=== PATIENT | female | born 1950 | race Caucasian/White ===

== ENCOUNTER 2021-04-26 03:05 | Inpatient (IN) | payer MEDICARE, MEDICAID ==
[~2021-04-26] VITALS: Ht 160 cm; Wt 51.0 kg
[~2021-04-26 03:05] MED LIST: ACET325T9 PO; AMLO-186 PO; ATOR10TA60 PO; BUDE0.5A NEB; BUPR300T92 PO; CYPR4TAB31 PO; IPRA3AMP29 NEB; LISI20TA18 PO; MELA10TA7 PO; MEMA10TA PO; MULT-245 PO; OXYGEN; PANT20TA2 PO; PRED-220 PO; PRED20TA PO; UMEC1DIS IH
[2021-04-26] MEDS ORDERED: ALBUTEROL SULFATE 2.5 MG/3 ML NEBU. ONE ×2 (03:09→03:19)
[2021-04-26] MEDS ORDERED: DEXAMETHASONE SOD PHOS 20 MG/5 ML VIAL. ONE (03:11)
[2021-04-26] MEDS ORDERED: cefTRIAXone IV Push 1 GM VIAL. IVP ONE (03:15)
[2021-04-26] MEDS ORDERED: DEXAMETHASONE SOD PHOS 4 MG/ML VIAL IVP ONE (03:15)
[2021-04-26] MEDS ORDERED: LIDOCAINE 1%/EPI 1:100,000 20 ML VIAL. ONE ×2 (03:23→04:40)
--- NOTE | 2021-04-26 03:28 | RAD ---
Single view chest dated 04/26/2021 3:22 AM: COMPARISON: CT dated 12/04/2020 Clinical Indication: Shortness of breath. History of Covid 19. Findings: Single upright portable exam of the chest was performed. Heart and mediastinal contours within normal limits. There is a large left-sided pneumothorax with subtotal collapse of the left lung. Right lung is clear. No significant pleural effusion. IMPRESSION: 1. Large left-sided pneumothorax with subtotal collapse of the left lung. Results discussed with ER physician at approximately 3:25 AM on the day of study. Electronically signed by: Sher Tavares MD (04/26/2021 3:25 AM) EDD
[2021-04-26] MEDS ORDERED: AZITHROMYCIN 500 MG in IV NORMAL SALINE 250ML 250 ML IV ONE (03:30)
[2021-04-26] MEDS ORDERED: ALBUTEROL SULFATE 2.5 MG/3 ML NEBU. CONT NEB ONE (03:30)
[2021-04-26 03:46] LABS: BASO # 0.1 x10^3/uL (0.0-0.2); BASO % 0 % (0-3); EOS % 0 % (0-3); HEMATOCRIT 40.7 % (36.0-47.0); HEMOGLOBIN 12.9 g/dL (12.0-15.5); LYMPH # 5.4 x10^3/uL (1.0-4.8); LYMPH % 29 % (24-48); MEAN CORPUSCULAR HEMOGLOBIN 27 pg (25-35); MEAN CORPUSCULAR HGB CONC 32 g/dL (31-37); MEAN CORPUSCULAR VOLUME 86 fL (79-100); MONO # 0.8 x10^3/uL (0.0-1.1); MONO % 5 % (0-9); NEUT # 12.4 x10^3/uL (1.8-7.7); NEUT % 66 % (31-73); PLATELET COUNT 238 x10^3/uL (140-400); RED BLOOD COUNT 4.74 x10^6/uL (3.50-5.40); RED CELL DISTRIBUTION WIDTH 18.6 % (11.5-14.5); WHITE BLOOD COUNT 18.8 x10^3/uL (4.0-11.0)
[2021-04-26 03:55] LABS: PROTHROMBIN TIME PATIENT 11.7 SEC (11.7-14.0)
[2021-04-26 03:59] LABS: CALCIUM 8.6 mg/dL (8.5-10.1); CREATININE 1.2 mg/dL (0.6-1.0); GFR 44.4; POTASSIUM 3.6 mmol/L (3.5-5.1)
[2021-04-26] MEDS ORDERED: NOREPINEPHRINE VIAL 8 MG in IV DEXTROSE 5% 250 ML IV ONE (04:00)
[2021-04-26] MEDS ORDERED: fentaNYL PF VIAL 100 MCG/2 ML VIAL IVP ONE ×3 (04:00→07:45)
[2021-04-26] MEDS ORDERED: fentaNYL PF VIAL 100 MCG/2 ML VIAL ONE (04:02)
--- NOTE | 2021-04-26 04:02 | RAD ---
Single view chest dated 04/26/2021 3:58 AM: COMPARISON: Study dated same day Clinical Indication: Chest tube placement. Findings: Single upright portable exam of the chest was performed. Heart and mediastinal contours are stable. I nterval placement of left-sided chest tube. Previously described large left pneumothorax is nearly co mpletely resolved. There is a small amount of residual pleural gas at the lateral left base. Moderate amount subcutaneous emphysema along the left chest wall, new from prior study. The right lung remain s clear. Patchy increased density at the retrocardiac left base, likely atelectasis. IMPRESSION: 1. Near complete resolution of left-sided pneumothorax after chest tube placement. 2. Patchy bibasilar airspace disease, likely atelectasis. Electronically signed by: Sher Tavares MD (04/26/2021 3:59 AM) EDD
[2021-04-26 04:05] LABS: ALBUMIN 2.6 g/dL (3.4-5.0); ALBUMIN/GLOBULIN RATIO 0.7 (1.0-1.7); TOTAL BILIRUBIN 0.3 mg/dL (0.2-1.0); TOTAL PROTEIN 6.5 g/dL (6.4-8.2)
[2021-04-26 04:09] LABS: D-DIMER 3.76 ug/mlFEU (0.00-0.50)
[2021-04-26 04:20] LABS: BASE EXCESS ABG 3 mmol/L (-3-3); HCO3 ABG 32 mmol/L (21-28); SAT O2 ABG 72 % (92-99)
[2021-04-26 04:24] LABS: FIO2 ABG 100 (bipap); PCO2 ABG 69 mmHg (35-46); PO2 ABG 43 mmHg (65-108)
[2021-04-26 04:25] LABS: % BANDS 6 % (0-9); % EOS 1 % (0-5); % LYMPHS 29 % (24-48); % MONOS 3 % (0-10); % SEGS 61 % (35-66); PLT ESTIMATE ADEQUATE (ADEQUATE)
--- NOTE | 2021-04-26 04:28 | PHYS DOC ---
Past Medical History Past Medical History: COPD Additional Past Medical Histor: 4L OXYGEN @ HOME Past Surgical History: No Surgical History Smoking Status: Former Smoker Alcohol Use: None Adult General Chief Complaint Chief Complaint: DYSPNEA/RESPIRATORY DISTRESS HPI HPI The patient is a 70-year-old female with a history of hypertension, hyperlipidemia and COPD with chronic respiratory failure on 4 L of home oxygen at all times. We are told by the nursing facility where she resides that she is COVID-positive. Patient presents for evaluation of low oxygen saturation at the facility. [facility] staff found the patient to be saturating at about 45% on her baseline 4L when they went in to check on her overnight. EMS were called. EMS placed the patient on CPAP and on CPAP her saturations were in the 60s. She was transported here. Upon arrival to the emergency department the patient is alert and follows commands but is in significant respiratory distress, unable to provide history. Placed on BiPAP at high settings with continuous albuterol running inline and dose of dexamethasone given as well. Sats improved to about 75% on room air with these interventions. Cultures drawn and antibiotic coverage initiated. Chest x-ray obtained and shows large left sided pneumothorax. Chest thoracostomy tube therefore immediately placed by me with complete reexpansion demonstrated on repeat plain films and markedly improved oxygen saturation in the mid 90s on BiPAP. Patient reports her breathing is much, much better after treatment of the pneumothorax. Blood pressure low with positive pressure ventilation; single dose of push dose epinephrine given to temporize while Levophed started peripherally. Review of Systems Review of Systems Review of systems not obtainable secondary to patient in extremis. Current Medications Current Medications Current Medications Medications (Trade) Dose Ordered Sig/Olivia Start Time Stop Time Status Last Admin Dose Admin Albuterol Sulfate (Ventolin Neb Soln) 10 mg 1X ONCE 04/26/21 03:30 04/26/21 03:31 DC 04/26/21 03:15 10 MG Azithromycin 500 mg/Sodium Chloride 250 ml @ 250 mls/hr 1X ONCE 04/26/21 03:30 04/26/21 04:29 DC 04/26/21 03:42 250 MLS/HR Ceftriaxone Sodium (Rocephin) 1 gm 1X ONCE 04/26/21 03:15 04/26/21 03:20 DC 04/26/21 03:32 1 GM Dexamethasone Sodium Phosphate (Decadron) 10 mg 1X ONCE 04/26/21 03:15 04/26/21 03:20 DC 04/26/21 03:15 10 MG Fentanyl Citrate (Fentanyl 2ml Vial) 50 mcg 1X ONCE 04/26/21 04:00 04/26/21 04:01 DC 04/26/21 04:04 50 MCG Norepinephrine Bitartrate 8 mg/ Dextrose 258 ml @ 8.649 mls/ hr 1X ONCE 04/26/21 04:00 04/26/21 04:01 DC 04/26/21 04:00 10.3 MLS/HR Allergies Allergies Allergies Coded Allergies Type Severity Reaction Last Updated Verified codeine Allergy Intermediate 12/04/20 Yes tiotropium Allergy Intermediate 12/04/20 Yes Physical Exam Physical Exam Cachectic elderly black female appearing acutely ill and in severe respiratory distress. Head is normocephalic and atraumatic. Neck is supple and nontender. Oropharynx is tacky. Lungs with diminished breath sounds bilaterally, more so on the left than the right. Tachypnea and markedly increased work of breathing. There is a normal S1 and S2 without rubs or gallops and capillary refill is a ppropriate, less than 2 seconds globally. Abdomen is soft, nontender and nondistended without pulsatile mass. Skin is warm and dry without cyanosis, clubbing or edema. Psychiatrically, the patient demonstrates appropriate mood and affect and is alert. Neurologically, patient moves all extremities equally, is alert and oriented and no lateralizing deficits are seen. Evaluation of the extremities reveals BUEs and BLEs neurovascularly intact distally with strength 5 out of 5, sensation intact to light touch in all nerve distributions, capillary refill less than 2 seconds, hands and feet warm and well-perfused. No dependent peripheral edema distally. No calf tenderness or swelling bilater ally. Choco's test is negative bilaterally. Current Patient Data Vital Signs Vital Signs Date Time Temp Pulse Resp B/P (MAP) Pulse Ox O2 Delivery O2 Flow Rate FiO2 04/26/21 04:04 23 93 Room Air 04/26/21 03:52 118 124/75 (91) 04/26/21 03:05 97.8 97.8 Lab Values Laboratory Tests Test 04/26/21 03:20 04/26/21 03:30 O2 Saturation 72 % (92-99) L Arterial Blood pH 7.28 (7.35-7.45) L Arterial Blood pCO2 at Patient Temp 69 mmHg (35-46) *H Arterial Blood pO2 at Patient Temp 43 mmHg (65-108) *L Arterial Blood HCO3 32 mmol/L (21-28) H Arterial Blood Base Excess 3 mmol/L (-3-3) FiO2 100 (bipap) White Blood Count 18.8 x10^3/uL (4.0-11.0) H Red Blood Count 4.74 x10^6/uL (3.50-5.40) Hemoglobin 12.9 g/dL (12.0-15.5) Hematocrit 40.7 % (36.0-47.0) Mean Corpuscular Volume 86 fL (79-100) Mean Corpuscular Hemoglobin 27 pg (25-35) Mean Corpuscular Hemoglobin Concent 32 g/dL (31-37) Red Cell Distribution Width 18.6 % (11.5-14.5) H Platelet Count 238 x10^3/uL (140-400) Neutrophils (%) (Auto) 66 % (31-73) Lymphocytes (%) (Auto) 29 % (24-48) Monocytes (%) (Auto) 5 % (0-9) Eosinophils (%) (Auto) 0 % (0-3) Basophils (%) (Auto) 0 % (0-3) Neutrophils # (Auto) 12.4 x10^3/uL (1.8-7.7) H Lymphocytes # (Auto) 5.4 x10^3/uL (1.0-4.8) H Monocytes # (Auto) 0.8 x10^3/uL (0.0-1.1) Eosinophils # (Auto) 0.0 x10^3/uL (0.0-0.7) Basophils # (Auto) 0.1 x10^3/uL (0.0-0.2) Segmented Neutrophils % 61 % (35-66) Band Neutrophils % 6 % (0-9) Lymphocytes % 29 % (24-48) Monocytes % 3 % (0-10) Eosinophils % 1 % (0-5) Platelet Estimate Adequate (ADEQUATE) Prothrombin Time 11.7 SEC (11.7-14.0) Prothrombin Time INR 0.9 (0.8-1.1) Activated Partial Thromboplast Time 23 SEC (24-38) L D-Dimer (Katie) 3.76 ug/mlFEU (0.00-0.50) H Sodium Level 147 mmol/L (136-145) H Potassium Level 3.6 mmol/L (3.5-5.1) Chloride Level 108 mmol/L (98-107) H Carbon Dioxide Level 33 mmol/L (21-32) H Anion Gap 6 (6-14) Blood Urea Nitrogen 19 mg/dL (7-20) Creatinine 1.2 mg/dL (0.6-1.0) H Estimated GFR (Cockcroft-Gault) 44.4 BUN/Creatinine Ratio 16 (6-20) Glucose Level 262 mg/dL (70-99) H Lactic Acid Level 1.9 mmol/L (0.4-2.0) Calcium Level 8.6 mg/dL (8.5-10.1) Total Bilirubin 0.3 mg/dL (0.2-1.0) Aspartate Amino Transferase (AST) 34 U/L (15-37) Alanine Aminotransferase (ALT) 35 U/L (14-59) Alkaline Phosphatase 126 U/L (46-116) H Troponin I High Sensitivity 240 ng/L (4-50) H CB-Mzb-Q-Type Natriuretic Peptide 376 pg/mL (0-124) H Total Protein 6.5 g/dL (6.4-8.2) Albumin 2.6 g/dL (3.4-5.0) L Albumin/Globulin Ratio 0.7 (1.0-1.7) L Laboratory Tests 04/26/21 03:30 Laboratory Tests 04/26/21 03:30 EKG EKG Sinus rhythm, rate 108, no acute ST elevation or depression, WI 116, QRS 80, QTc 486, EP interpretation. Nonischemic tracing, intervals appropriate. Baseline artifact modestly limits interpretation, particularly in anterior leads. Radiology/Procedures Radiology/Procedures Indication: critical illness; need for vasopressors Consent: The patient provided consent for this procedure. Procedure: The patient was positioned appropriately and the skin over the right IJ was prepped and draped in a sterile fashion. Local anesthesia was used. Ultrasound guidance utilized. A large bore needle was used to identify the vein. A guide wire was then inserted into the vein through the needle. A triple lumen catheter was then inserted into the vessel over the guide wire using the Ana Cristina mickey technique. All ports showed good, free flowing blood return and were flushed with saline solution. The catheter was then securely fastened to the skin with sutures and covered with a sterile dressing. A post procedure X-ray was ordered. The patient tolerated the procedure well. Complications: none. Indication: [Large left pneumothorax; acute respiratory failure] Consent: The patient provided consent for this procedure. Procedure: The patient was placed in an appropriate position. Local anesthesia over the insertion site was lidocaine w/ epi x10mg. An incision was made. Blunt dissection up and over the rib was performed until access was obtained into the pleural cavity. A 24. Micronesian chest tube was placed and connected to [PLEURIVAC]. Initial output from the tube was air. The tube was sutured in place and the site was covered with an occlusive dressing. All connections were banded. Breath sounds after the procedure were equal bilaterally. A chest x- ray was obtained to evaluate placement and demonstrated near-complete resolution of the pneumothorax. The patient tolerated the procedure very well. Complications: none. Single view chest dated 04/26/2021 3:22 AM: COMPARISON: CT dated 12/04/2020 Clinical Indication: Shortness of breath. History of Covid 19. Findings: Single upright portable exam of the chest was performed. Heart and mediastinal contours within normal limits. There is a large left-sided pneumothorax with subtotal collapse of the left lung. Right lung is clear. No significant pleural effusion. IMPRESSION: 1. Large left-sided pneumothorax with subtotal collapse of the left lung. Results discussed with ER physician at approximately 3:25 AM on the day of study. Electronically signed by: Sher Tavares MD (04/26/2021 3:25 AM) [facility] [place] DICTATED and SIGNED BY: SHER TAVARES MD DATE: 04/26/21 [id number] 0 Single view chest dated 04/26/2021 3:58 AM: COMPARISON: Study dated same day Clinical Indication: Chest tube placement. Findings: Single upright portable exam of the chest was performed. Heart and mediastinal contours are stable. Interval placement of left-sided chest tube. Previously described large left pneumothorax is nearly completely resolved. There is a small amount of residual pleural gas at the lateral left base. Moderate amount subcutaneous emphysema along the left chest wall, new from prior study. The right lung remains clear. Patchy increased density at the retrocardiac left base, likely atelectasis. IMPRESSION: 1. Near complete resolution of left-sided pneumothorax after chest tube placement. 2. Patchy bibasilar airspace disease, likely atelectasis. Electronically signed by: Sher Tavares MD (04/26/2021 3:59 AM) [facility] [place] DICTATED and SIGNED BY: SHER TAVARES MD DATE: 04/26/21 [id number] 0 Course & Med Decision Making Course & Med Decision Making Workup as above. Patient stabilized after left chest tube placement; oxygen saturations very appropriate on much lower BiPAP settings and patient states her breathing is much, much better. Repeat ABG much improved. Patient with troponin elevation likely reflective of demand ischemia; NO substernal chest pain and EKG is nonischemic. Delta troponin pending. D dimer markedly elev ated; favor this being due to critical illness / COVID infection but will obtain CTPA on the way to the ICU. Right IJ CVC placed due to critical illness and need for norepinephrine for pressure support, though pressor requirement has decreased as BiPAP settings have been titrated down and patient has been fluid resuscitated. Line OK to use on review of repeat plain films of the chest. Case d/w Dr. Pryor of pulmonary medicine who agrees with management thus far and will follow closely. Case d/w Dr. Dewey who graciously accepts the patient for ICU admission. CC time 115 minutes, independent of procedure time. Dragon Disclaimer Dragon Disclaimer This electronic medical record was generated, in whole or in part, using a voice recognition dictation system. Departure Departure Impression: Primary Impression: Acute hypoxemic respiratory failure Additional Impressions: Acute hypercapnic respiratory failure Pneumothorax, left Demand ischemia Disposition: ADMITTED INPATIENT Condition: CRITICAL Referrals: ASTRID LE MD (PCP) Problem Qualifiers MADHURI HAYDEN MD Apr 26, 2021 04:28
[2021-04-26 04:49] LABS: BASE EXCESS ABG 2 mmol/L (-3-3); HCO3 ABG 29 mmol/L (21-28); PCO2 ABG 57 mmHg (35-46); PO2 ABG 77 mmHg (65-108); SAT O2 ABG 94 % (92-99)
[2021-04-26 04:54] LABS: FIO2 ABG 75 (bipap)
[2021-04-26] MEDS ORDERED: IV NORMAL SALINE 500ML BAG 500 ML IV ONE (05:15)
[2021-04-26] MEDS ORDERED: ONDANSETRON PF 4 MG/2 ML VIAL. IVP PRN (05:30)
[2021-04-26] MEDS ORDERED: ALBUTEROL SULFATE 2.5 MG/3 ML NEBU. NEB ONE (05:30)
--- NOTE | 2021-04-26 05:40 | RAD ---
Single view chest dated 04/26/2021 5:36 AM: COMPARISON: Study dated same day Clinical Indication: Central line placement. Findings: Single upright portable exam of the chest was performed. Heart and mediastinal contours are stable. I nterval placement of right internal jugular catheter with tip projected to the level of the upper SVC . There is a left-sided chest tube in place, unchanged. Small amount of pleural gas at the left costo phrenic sulcus, unchanged. There is patchy increased density at the retrocardiac left base, unchanged . Subcutaneous emphysema along the left chest wall, unchanged. IMPRESSION: 1. Interval placement of right internal jugular catheter with no evidence of right-sided pneumothorax . 2. Left-sided chest tube with small pneumothorax at the left costophrenic sulcus, unchanged. 3. Left basilar airspace disease, likely atelectasis. Electronically signed by: Sher Tavares MD (04/26/2021 5:38 AM) [facility]
[2021-04-26 05:43] LABS: INFLUENZA A PATIENT NEGATIVE (NEGATIVE); INFLUENZA B PATIENT NEGATIVE (NEGATIVE)
[2021-04-26] MEDS ORDERED: IV DEXTROSE 5 %-0.45 % NACL 1,000 ML IV ONE (05:45)
[2021-04-26] MEDS ORDERED: IOHEXOL 350 MG/ML 100 ML VIAL. IV ONE (06:00)
[2021-04-26] MEDS ORDERED: CONTRAST GIVEN. MC PRN (06:00)
--- NOTE | 2021-04-26 06:03 | EKG ---
[facility] [address] [place] [address] Test Date: 2021-04-26 Test Time: 04:23:44 Pat Name: WARREN CARR Department: Room: ED HOLD 1 Gender: F Boat Wrapper: : 1950 Requested By: MADHURI HAYDEN Order Number: [id number] Reading MD: Burke Macdonald MD Measurements Intervals [place] Rate: 108 P: 56 DE: 116 QRS: 35 QRSD: 80 T: 31 QT: 360 QTc: 486 Interpretive Statements SINUS TACHYCARDIA NON-SPECIFIC ST/T CHANGES Electronically Signed On 04-26-2021 14:56:30 FURNITURE REPAIRER by Burke Macdonald MD
[2021-04-26] MEDS ORDERED: EPINEPHrine SYRINGE 1 MG/10 ML SYRINGE. IV ONE (07:30)
[2021-04-26] MEDS: fentaNYL PF VIAL 100 MCG/2 ML VIAL IVP PRN ×5 (07:41→23:44)
[2021-04-26] MEDS ORDERED: LIDOCAINE 1%/EPI 1:100,000 20 ML VIAL. INJ ONE ×2 (07:45)
--- NOTE | 2021-04-26 08:42 | RAD ---
PQRS Compliance Statement: One or more of the following individualized dose reduction techniques were utilized for this examinat ion: 1. Automated exposure control 2. Adjustment of the mA and/or kV according to patient size 3. Use of iterative reconstruction technique Exam performed: CT pulmonary angiogram of the chest with contrast. Date: 04/26/2021. Comparison:Single view chest from earlier today and CT angiogram chest from 12/04/2020 Indication: Acute on chronic respiratory failure, left pneumothorax, markedly elevated d-dimer Technique: Contiguous helical acquisitions are obtained through the chest during intravenous administ ration of 85 cc of Omnipaque 350. [Sagittal and coronal reformatted images and ] MIP images were o btained and reviewed Findings: Diagnostic quality: Adequate. Pulmonary emboli: None seen Right heart strain: None seen Pulmonary arteries: Normal in caliber Heart/Systemic Vasculature: Heart is normal, no pericardial effusion. Diffuse atheromatous aortic hayden cification noted. Mediastinum: Calcified mediastinal lymph nodes are identified. Lungs: Diffuse bilateral emphysematous lungs are seen. Small left pneumothorax with a left-sided ches t tube in place noted. Tip of the 2 extends into the left apex. There is atelectasis of the left lung base. There are linear opacities in the right lung base likely atelectasis. Trace right pleural effu katt Neck/Axilla/Body Wall: Normal Upper Abdomen: Grossly unremarkable. Right renal cyst Bones: Generalized osteopenia with compression fractures involving mid and lower thoracic vertebral b kory appears similar to the prior exam. Miscellaneous: There is moderate left chest wall subcutaneous emphysema. Impression: 1. The study is negative for pulmonary embolism. 2. Stable small left pneumothorax with a left-sided chest tube in place. Electronically signed by: Ary Kim MD (04/26/2021 8:39 AM) [facility]
[2021-04-26 09:36] LABS: BILIRUBIN,URINE NEGATIVE (NEG); CLARITY,URINE CLEAR; COLOR,URINE YELLOW; NITRITE,URINE NEGATIVE (NEG); PROTEIN,URINE 30 mg/dL (NEG-TRACE); UROBILINOGEN,URINE 0.2 mg/dL (0.2 mg/dL)
--- NOTE | 2021-04-26 09:42 | CONS ---
DATE OF CONSULTATION: 04/26/2021 PULMONARY CONSULTATION ATTENDING PHYSICIAN: Emmie Snell DO. REASON FOR CONSULTATION: Respiratory failure, left-sided spontaneous pneumothorax, COVID positive. HISTORY OF PRESENT ILLNESS: The patient is a 70-year-old female who has history of hypertension, hyperlipidemia and COPD with chronic hypoxic respiratory failure. She is on home oxygen at 4 liters. The patient resides at a nursing facility. She was brought into the hospital after she was found to be dyspneic and hypoxic with saturation of 45% on room air. EMS was called. She was placed on CPAP. Saturations were still in the 60s. She was brought into our Emergency Department and was placed on BiPAP. Since she was tested positive for COVID, she received dexamethasone. Her chest x-ray revealed a large left sided pneumothorax. Chest tube was placed by ER physician. I was informed about the consulted for in the morning. The patient was stable on BiPAP. I saw the patient in the Emergency Room. She is currently on BiPAP at a pressure of 18/6. She is currently on 70% FiO2, saturations are 99%. She denies any chest pain. She does complain of some chest wall pain. I reviewed the patient's arterial blood gases. It shows a pH of 7.28, pCO2 of 69 and a pO2 of 43 on 100% BiPAP. The latest ABGs at 450 in the morning showed a pH of 7.33, pCO2 of 57, pO2 of 77 and a bicarb of 29. Chest x-rays were reviewed including a CT chest. There is no evidence of pulmonary embolism. The initial chest x-ray showed a large left sided pneumothorax. Post-chest tube placement. There is significant reexpansion. CT angiogram shows no evidence of pulmonary embolism. There is a small left pneumothorax. There is left lower lobe atelectasis. There is some chest wall emphysema. There is still some residual pneumothorax. Consultation requested for further evaluation and management. PAST MEDICAL HISTORY: History of COPD with chronic hypoxic respiratory failure, hypertension, hyperlipidemia. PAST SURGICAL HISTORY: No recent surgeries. ALLERGIES: CODEINE AND TIOTROPIUM. MEDICATIONS: Reviewed as listed in the MRAD. REVIEW OF SYSTEMS: Limited, but pertinent positives discussed in my history of present illness. She denies any chest pain. She has some mild shortness of breath. No nausea, vomiting, no headache, no diarrhea. No leg edema. SOCIAL HISTORY: Has history of tobaccoism. She no longer smokes cigarettes. FAMILY HISTORY: Noncontributory to lungs. PHYSICAL EXAMINATION: VITAL SIGNS: Reviewed. Blood pressure 140 systolic. Pulse ox 99%. She is on BiPAP. NECK: Supple. LUNGS: With slightly diminished breath sounds, left lung. CARDIOVASCULAR: With a regular rate. ABDOMEN: Soft. EXTREMITIES: With no pitting edema. LABORATORY DATA: Reviewed. She is tested COVID positive. Her BUN 19, creatinine 1.2. Albumin 2.6. White cell count 18.8. IMPRESSION: 1. Acute on chronic hypoxic and hypercapnic respiratory failure secondary to multifactorial etiologies including large left sided pneumothorax, underlying chronic obstructive pulmonary disease with exacerbation and COVID-[address] 2[address] chest with a large pneumothorax on the left side. No evidence of pulmonary embolism. She is status post chest tube placement. CT angiogram shows some residual pneumothorax and a left lower lobe atelectasis. There is evidence of emphysema. 3. History of oxygen dependent chronic obstructive pulmonary disease. 4. Abnormal D-dimer, which is a nonspecific finding. No evidence of pulmonary embolism. 5. Severe protein-calorie malnutrition. 6. Mild azotemia. 7. Leukocytosis. RECOMMENDATIONS: 1. Discussed with ER physician and RN in the ER. We will continue present BiPAP. Wean FiO2. Saturations 99%. Follow ABGs and may wean off the BiPAP if ABGs improved. 2. Follow daily chest x-rays. 3. Pneumothorax could be caused by severe emphysema and blebs. COVID would be another contributing factor to Pneumothorax. 4. Continue daily x-ray and chest tube to suction. 5. P.r.n., pain medication. 6. Dexamethasone. 7. Remdesivir. 8. DVT prophylaxis. 9. Empiric antibiotics. 10. Discussed with RN in the ER. Discussed with ER physician. Chart reviewed, imaging studies reviewed. Total critical care time 40 minutes. ALTAGRACIA WHITE: Slade TID: [id number]
[2021-04-26 09:51] LABS: BACTERIA,URINE MODERATE /HPF (0-FEW)
[2021-04-26] MEDS ORDERED: REMDESIVIR LOAD in IV NORMAL SALINE 250ML TV IV ONE (10:00)
--- NOTE | 2021-04-26 11:02 | PDOC ---
Provider Note Date of Service: DATE: 04/26/21 TIME: 11:00 Provider Note [id number] Justifications for Admission Other Justification JEREMIAH VILA MD Apr 26, 2021 11:02
[2021-04-26 11:18] LABS: BASE EXCESS ABG 4 mmol/L (-3-3); HCO3 ABG 30 mmol/L (21-28); PCO2 ABG 52 mmHg (35-46); PO2 ABG 72 mmHg (65-108); SAT O2 ABG 94 % (92-99)
[2021-04-26] MEDS: MEMANTINE 5 MG TABLET. PO SCH (11:31)
[2021-04-26] MEDS: buPROPion XL 150 MG TAB.ER.24H. PO SCH (11:39)
[2021-04-26] MEDS: LISINOPRIL 20 MG TABLET PO SCH (11:40)
--- NOTE | 2021-04-26 11:55 | HP ---
DATE OF SERVICE: 04/26/2021 ADMIT DATE: 04/26/2021 CHIEF COMPLAINT: Shortness of breath. HISTORY OF PRESENT ILLNESS: A 70-year-old white female with oxygen-dependent COPD, who currently resides in a nursing facility and recently tested positive for COVID. Vaccine status is unknown. She developed progressive hypoxia and dyspnea in the ER, was found to have a large left pneumothorax and ER doctor placed a chest tube and she is much improved at this point. Laboratory studies are unremarkable at this point as well. PAST MEDICAL HISTORY: ALLERGIES LISTED TO CODEINE. Meds are not available at this time. SOCIAL HISTORY: Quit smoking some period of time ago. Family status is unknown. FAMILY HISTORY: Unremarkable. REVIEW OF SYSTEMS: Unremarkable. OBJECTIVE: ENT: All within normal limits. NECK: No masses, thyroid enlargement, or nodes. LUNGS: Decreased breath sounds in all lung bhatt. No wheezing is noted. No tachypnea. CARDIOVASCULAR: Regular rate. No tachycardia or murmur. ABDOMEN: Soft, benign and nontender. EXTREMITIES: Reduced pedal and radial pulses, 2+ clubbing, consistent with COPD. NEUROLOGIC AND PHYSIOLOGIC: Nonfocal. ASSESSMENT: COVID positive patient with chronic obstructive pulmonary disease with a large left pneumothorax, status post chest tube placement. Thought chronic obstructive pulmonary disease, COVID, and coughing could account for this. PLAN: Continue supportive care. Follow up with Dr. Kendall Dewey. STEF/WM/CEE WHITE: STEF/amaya TID: [id number]
[2021-04-26] MEDS: PANTOPRAZOLE 40 MG TABLET.DR. PO SCH (11:56)
[2021-04-26] MEDS: BUDESONIDE 0.5 MG/2 ML NEBU. NEB SCH (13:13)
[2021-04-26] MEDS: HEPARIN for SUB-Q USE 5,000 UNIT/ML VIAL. SQ SCH ×2 (13:56→19:55)
--- NOTE | 2021-04-26 15:00 | PDOC2 ---
CARDIOLOGY CONSULT NOTE DATE OF SERVICE: DATE: 04/26/21 TIME: 14:57 CHIEF COMPLAINT: Shortness of breath HPI: 70-year-old woman presents to the hospital in the setting of shortness of breath and recent diagnosis of coronavirus pneumonia. She is found to have a large left pneumothorax and a chest tube was appropriately placed. In this setting a troponin was also obtained and this was noted to be minimally elevated. The patient does not have any significant chest pain. PMHX: COPD SOCHX: No alcohol, tobacco or illicit drug use. She resides in detention. FAMHX: Noncontributory CURRENT MEDS: Current Medications Medications (Trade) Dose Ordered Sig/Olivia Route PRN Reason Start Time Stop Time Status Last Admin Dose Admin Dexamethasone Sodium Phosphate (Decadron) 10 mg 1X ONCE IVP 04/26/21 03:15 04/26/21 03:20 DC 04/26/21 03:15 Ceftriaxone Sodium (Rocephin) 1 gm 1X ONCE IVP 04/26/21 03:15 04/26/21 03:20 DC 04/26/21 03:32 Azithromycin 500 mg/Sodium Chloride 250 ml @ 250 mls/hr 1X ONCE IV 04/26/21 03:30 04/26/21 04:29 DC 04/26/21 03:42 Albuterol Sulfate (Ventolin Neb Soln) 10 mg 1X ONCE CONT NEB 04/26/21 03:30 04/26/21 03:31 DC 04/26/21 03:15 Norepinephrine Bitartrate 8 mg/ Dextrose 258 ml @ 8.649 mls/ hr 1X ONCE IV 04/26/21 04:00 04/26/21 04:01 DC 04/26/21 04:00 Fentanyl Citrate (Fentanyl 2ml Vial) 50 mcg 1X ONCE IVP 04/26/21 04:00 04/26/21 04:01 DC 04/26/21 04:04 Fentanyl Citrate (Fentanyl 2ml Vial) 50 mcg 1X ONCE IVP 04/26/21 04:15 04/26/21 04:17 DC 04/26/21 04:45 Sodium Chloride 500 ml @ 500 mls/hr 1X ONCE IV 04/26/21 05:15 04/26/21 06:14 DC 04/26/21 03:42 Fentanyl Citrate (Fentanyl 2ml Vial) 50 mcg PRN Q2HRS PRN IVP PAIN 04/26/21 05:30 04/27/21 05:29 04/26/21 11:31 Dextrose/Sodium Chloride 1,000 ml @ 100 mls/hr 1X ONCE IV 04/26/21 05:45 04/26/21 15:44 04/26/21 09:15 Iohexol (Omnipaque 350 Mg/ml) 80 ml 1X ONCE IV 04/26/21 06:00 04/26/21 06:01 DC 04/26/21 08:20 Epinephrine HCl (EPINEPHrine SYRINGE) 0.2 mg 1X ONCE IV 04/26/21 07:30 04/26/21 07:33 DC 04/26/21 03:45 Fentanyl Citrate (Fentanyl 2ml Vial) 50 mcg 1X ONCE IVP 04/26/21 07:45 04/26/21 07:46 DC 04/26/21 05:25 Lidocaine/ Epinephrine (LIDOCAINE 1%-EPI 1:100,000 Multi-Dose) 20 ml 1X ONCE INJ 04/26/21 07:45 04/26/21 07:46 DC 04/26/21 04:55 Lidocaine/ Epinephrine (LIDOCAINE 1%-EPI 1:100,000 Multi-Dose) 20 ml 1X ONCE INJ 04/26/21 07:45 04/26/21 07:46 DC 04/26/21 03:27 Heparin Sodium (Porcine) (Heparin Sodium) 5,000 unit Q8HRS SQ 04/26/21 14:00 04/26/21 13:56 Remdesivir 200 mg/ Sodium Chloride 210 ml @ 210 mls/hr 1X ONCE IV 04/26/21 10:00 04/26/21 10:59 DC 04/26/21 10:17 Memantine (Namenda) 5 mg DAILY PO 04/26/21 12:00 04/26/21 11:31 Bupropion HCl (Wellbutrin Xl) 300 mg DAILY PO 04/26/21 12:00 04/26/21 11:39 Pantoprazole Sodium (Protonix) 40 mg DAILYAC PO 04/26/21 12:00 04/26/21 11:56 ALLERGIES: Allergies Coded Allergies Type Severity Reaction Last Updated Verified codeine Allergy Intermediate 12/04/20 Yes tiotropium Allergy Intermediate 12/04/20 Yes ROS: Negative for 10 out of 14 systems reviewed unless otherwise mentioned above in HPI PHYSICAL EXAM: Vital Signs/I&O: Vital Signs Date Time Temp Pulse Resp B/P (MAP) Pulse Ox O2 Delivery O2 Flow Rate FiO2 04/26/21 14:50 95 BiPAP/CPAP 04/26/21 14:34 97 22 138/73 (94) 04/26/21 03:05 97.8 97.8 I & O 04/25/21 04/25/21 04/26/21 15:00 23:00 07:00 Intake Total 1250 ml Balance 1250 ml Physical Exam: Limited visual examination. The patient is not in any acute distress DIAGNOSTIC TESTING: Chest x-ray, EKG, cardiac enzymes reviewed Lab Laboratory Tests Test 04/26/21 03:20 04/26/21 03:30 04/26/21 04:50 04/26/21 05:24 O2 Saturation 72 % (92-99) L 94 % (92-99) Arterial Blood pH 7.28 (7.35-7.45) L 7.33 (7.35-7.45) L Arterial Blood pCO2 at Patient Temp 69 mmHg (35-46) *H 57 mmHg (35-46) H Arterial Blood pO2 at Patient Temp 43 mmHg (65-108) *L 77 mmHg (65-108) Arterial Blood HCO3 32 mmol/L (21-28) H 29 mmol/L (21-28) H Arterial Blood Base Excess 3 mmol/L (-3-3) 2 mmol/L (-3-3) FiO2 100 (bipap) 75 (bipap) White Blood Count 18.8 x10^3/uL (4.0-11.0) H Red Blood Count 4.74 x10^6/uL (3.50-5.40) Hemoglobin 12.9 g/dL (12.0-15.5) Hematocrit 40.7 % (36.0-47.0) Mean Corpuscular Volume 86 fL (79-100) Mean Corpuscular Hemoglobin 27 pg (25-35) Mean Corpuscular Hemoglobin Concent 32 g/dL (31-37) Red Cell Distribution Width 18.6 % (11.5-14.5) H Platelet Count 238 x10^3/uL (140-400) Neutrophils (%) (Auto) 66 % (31-73) Lymphocytes (%) (Auto) 29 % (24-48) Monocytes (%) (Auto) 5 % (0-9) Eosinophils (%) (Auto) 0 % (0-3) Basophils (%) (Auto) 0 % (0-3) Neutrophils # (Auto) 12.4 x10^3/uL (1.8-7.7) H Lymphocytes # (Auto) 5.4 x10^3/uL (1.0-4.8) H Monocytes # (Auto) 0.8 x10^3/uL (0.0-1.1) Eosinophils # (Auto) 0.0 x10^3/uL (0.0-0.7) Basophils # (Auto) 0.1 x10^3/uL (0.0-0.2) Segmented Neutrophils % 61 % (35-66) Band Neutrophils % 6 % (0-9) Lymphocytes % 29 % (24-48) Monocytes % 3 % (0-10) Eosinophils % 1 % (0-5) Platelet Estimate Adequate (ADEQUATE) Prothrombin Time 11.7 SEC (11.7-14.0) Prothromb Time International Ratio 0.9 (0.8-1.1) Activated Partial Thromboplast Time 23 SEC (24-38) L D-Dimer (Katie) 3.76 ug/mlFEU (0.00-0.50) H Sodium Level 147 mmol/L (136-145) H Potassium Level 3.6 mmol/L (3.5-5.1) Chloride Level 108 mmol/L (98-107) H Carbon Dioxide Level 33 mmol/L (21-32) H Anion Gap 6 (6-14) Blood Urea Nitrogen 19 mg/dL (7-20) Creatinine 1.2 mg/dL (0.6-1.0) H Estimated GFR (Cockcroft-Gault) 44.4 BUN/Creatinine Ratio 16 (6-20) Glucose Level 262 mg/dL (70-99) H Lactic Acid Level 1.9 mmol/L (0.4-2.0) Calcium Level 8.6 mg/dL (8.5-10.1) Total Bilirubin 0.3 mg/dL (0.2-1.0) Aspartate Amino Transf (AST/SGOT) 34 U/L (15-37) Alkaline Phosphatase 126 U/L (46-116) H Troponin I High Sensitivity 240 ng/L (4-50) H Total Protein 6.5 g/dL (6.4-8.2) Albumin 2.6 g/dL (3.4-5.0) L Albumin/Globulin Ratio 0.7 (1.0-1.7) L Influenza Type A Antigen Negative (NEGATIVE) Influenza Type B Antigen Negative (NEGATIVE) SARS-CoV-2 Antigen (Rapid) Positive (NEGATIVE) *A Test 04/26/21 05:30 04/26/21 09:25 04/26/21 11:18 Troponin I High Sensitivity 239 ng/L (4-50) H Urine Collection Type Unknown Urine Color Yellow Urine Clarity Clear Urine pH 7.0 (<5.0-8.0) Urine Specific [place] 1.025 (1.000-1.030) Urine Protein 30 mg/dL (NEG-TRACE) Urine Glucose (UA) 500 mg/dL (NEG) Urine Ketones (Stick) Trace mg/dL (NEG) Urine Blood Small (NEG) Urine Nitrite Negative (NEG) Urine Bilirubin Negative (NEG) Urine Urobilinogen Dipstick 0.2 mg/dL (0.2 mg/dL) Urine Leukocyte Esterase Moderate (NEG) Urine RBC 6-10 /HPF (0-2) Urine WBC 11-20 /HPF (0-4) Urine Squamous Epithelial Cells Mod /LPF Urine Renal Epithelial Cells Few /LPF Urine Bacteria Moderate /HPF (0-FEW) Urine Mucus Slight /LPF O2 Saturation 94 % (92-99) Arterial Blood pH 7.38 (7.35-7.45) Arterial Blood pCO2 at Patient Temp 52 mmHg (35-46) H Arterial Blood pO2 at Patient Temp 72 mmHg (65-108) Arterial Blood HCO3 30 mmol/L (21-28) H Arterial Blood Base Excess 4 mmol/L (-3-3) H FiO2 60% bipap Laboratory Tests 04/26/21 03:30 ASSESSMENT: 1. Elevated troponin likely secondary to type II non-STEMI. 2. Coronavirus pneumonia with pneumothorax 3. COPD PLAN: 1. No further cardiovascular testing necessary at this time. 2. Continue treatment of her primary pulmonary issues. Troponin elevation is likely secondary to stress related issues and no further testing or anticoagulation is necessary. Consider outpatient evaluation if she has persistent symptoms. JACKY VELÁZQUEZ MD Apr 26, 2021 14:59
[2021-04-26 19:35] VITALS: BP 137/81
[2021-04-26] MEDS: ATORVASTATIN CALCIUM 10 MG TABLET. PO SCH (19:53)
[2021-04-26 23:30] VITALS: BP 140/75
[2021-04-26] MEDS: IPRATROPIUM/ALBUTEROL 20/100mcg/INH INHALER. INH SCH (23:43)
[2021-04-27 04:32] LABS: BASO % 0 % (0-3); EOS % 0 % (0-3); HEMATOCRIT 37.9 % (36.0-47.0); HEMOGLOBIN 12.1 g/dL (12.0-15.5); LYMPH # 1.7 x10^3/uL (1.0-4.8); LYMPH % 15 % (24-48); MEAN CORPUSCULAR HEMOGLOBIN 27 pg (25-35); MEAN CORPUSCULAR HGB CONC 32 g/dL (31-37); MEAN CORPUSCULAR VOLUME 85 fL (79-100); MONO % 9 % (0-9); NEUT # 8.3 x10^3/uL (1.8-7.7); NEUT % 76 % (31-73); PLATELET COUNT 215 x10^3/uL (140-400); RED BLOOD COUNT 4.46 x10^6/uL (3.50-5.40); RED CELL DISTRIBUTION WIDTH 18.2 % (11.5-14.5)
[2021-04-27 04:39] VITALS: BP 150/81
[2021-04-27 04:57] LABS: ALBUMIN 2.2 g/dL (3.4-5.0); ALBUMIN/GLOBULIN RATIO 0.6 (1.0-1.7); CALCIUM 7.8 mg/dL (8.5-10.1); CREATININE 1.1 mg/dL (0.6-1.0); GFR 49.1; POTASSIUM 3.9 mmol/L (3.5-5.1); TOTAL BILIRUBIN 0.3 mg/dL (0.2-1.0); TOTAL PROTEIN 5.8 g/dL (6.4-8.2)
[2021-04-27] MEDS: IPRATROPIUM/ALBUTEROL 20/100mcg/INH INHALER. INH SCH ×3 (06:32→18:00)
[2021-04-27] MEDS: HEPARIN for SUB-Q USE 5,000 UNIT/ML VIAL. SQ SCH ×3 (06:32→21:00)
[2021-04-27 07:00] VITALS: BP 163/87
[2021-04-27] MEDS: BUDESONIDE 0.5 MG/2 ML NEBU. NEB SCH ×2 (08:00→20:00)
[2021-04-27] MEDS: MEMANTINE 5 MG TABLET. PO SCH (09:23)
[2021-04-27] MEDS: buPROPion XL 150 MG TAB.ER.24H. PO SCH (09:23)
[2021-04-27] MEDS: PANTOPRAZOLE 40 MG TABLET.DR. PO SCH (09:23)
[2021-04-27] MEDS: LISINOPRIL 20 MG TABLET PO SCH (09:24)
[2021-04-27] MEDS: DEXAMETHASONE SOD PHOS 4 MG/ML VIAL IVP SCH (09:39)
--- NOTE | 2021-04-27 09:39 | PDOC ---
PULMONARY PROGRESS NOTES DATE: 04/27/21 TIME: 09:37 Subjective Patient feels better. Off the BiPAP and down to 10 L oxygen via nasal cannula. Left chest tube in place. Minimal air leak seen. Vitals Vital Signs Date Time Temp Pulse Resp B/P (MAP) Pulse Ox O2 Delivery O2 Flow Rate FiO2 04/27/21 08:52 94 Nasal Cannula 10.0 04/27/21 04:39 97.4 105 20 150/81 (104) 97.4 General: Alert, No acute distress Lungs: Other (Decreased breath sounds bilaterally) Cardiovascular: S1 Abdomen: Soft Extremities: No Edema Skin: Warm Labs Laboratory Tests Test 04/26/21 03:20 04/26/21 03:30 04/26/21 04:50 04/26/21 05:24 O2 Saturation 72 % (92-99) 94 % (92-99) Arterial Blood pH 7.28 (7.35-7.45) 7.33 (7.35-7.45) Arterial Blood pCO2 at Patient Temp 69 mmHg (35-46) 57 mmHg (35-46) Arterial Blood pO2 at Patient Temp 43 mmHg (65-108) 77 mmHg (65-108) Arterial Blood HCO3 32 mmol/L (21-28) 29 mmol/L (21-28) Arterial Blood Base Excess 3 mmol/L (-3-3) 2 mmol/L (-3-3) FiO2 100 (bipap) 75 (bipap) White Blood Count 18.8 x10^3/uL (4.0-11.0) Red Blood Count 4.74 x10^6/uL (3.50-5.40) Hemoglobin 12.9 g/dL (12.0-15.5) Hematocrit 40.7 % (36.0-47.0) Mean Corpuscular Volume 86 fL (79-100) Mean Corpuscular Hemoglobin 27 pg (25-35) Mean Corpuscular Hemoglobin Concent 32 g/dL (31-37) Red Cell Distribution Width 18.6 % (11.5-14.5) Platelet Count 238 x10^3/uL (140-400) Neutrophils (%) (Auto) 66 % (31-73) Lymphocytes (%) (Auto) 29 % (24-48) Monocytes (%) (Auto) 5 % (0-9) Eosinophils (%) (Auto) 0 % (0-3) Basophils (%) (Auto) 0 % (0-3) Neutrophils # (Auto) 12.4 x10^3/uL (1.8-7.7) Lymphocytes # (Auto) 5.4 x10^3/uL (1.0-4.8) Monocytes # (Auto) 0.8 x10^3/uL (0.0-1.1) Eosinophils # (Auto) 0.0 x10^3/uL (0.0-0.7) Basophils # (Auto) 0.1 x10^3/uL (0.0-0.2) Segmented Neutrophils % 61 % (35-66) Band Neutrophils % 6 % (0-9) Lymphocytes % 29 % (24-48) Monocytes % 3 % (0-10) Eosinophils % 1 % (0-5) Platelet Estimate Adequate (ADEQUATE) Prothrombin Time 11.7 SEC (11.7-14.0) Prothromb Time International Ratio 0.9 (0.8-1.1) Activated Partial Thromboplast Time 23 SEC (24-38) D-Dimer (Katie) 3.76 ug/mlFEU (0.00-0.50) Sodium Level 147 mmol/L (136-145) Potassium Level 3.6 mmol/L (3.5-5.1) Chloride Level 108 mmol/L (98-107) Carbon Dioxide Level 33 mmol/L (21-32) Anion Gap 6 (6-14) Blood Urea Nitrogen 19 mg/dL (7-20) Creatinine 1.2 mg/dL (0.6-1.0) Estimated GFR (Cockcroft-Gault) 44.4 BUN/Creatinine Ratio 16 (6-20) Glucose Level 262 mg/dL (70-99) Lactic Acid Level 1.9 mmol/L (0.4-2.0) Calcium Level 8.6 mg/dL (8.5-10.1) Total Bilirubin 0.3 mg/dL (0.2-1.0) Aspartate Amino Transf (AST/SGOT) 34 U/L (15-37) Alanine Aminotransferase (ALT/SGPT) 35 U/L (14-59) Alkaline Phosphatase 126 U/L (46-116) Troponin I High Sensitivity 240 ng/L (4-50) SG-[id number]-[id number]-Type Natriuretic Peptide 376 pg/mL (0-124) Total Protein 6.5 g/dL (6.4-8.2) Albumin 2.6 g/dL (3.4-5.0) Albumin/Globulin Ratio 0.7 (1.0-1.7) Influenza Type A Antigen Negative (NEGATIVE) Influenza Type B Antigen Negative (NEGATIVE) SARS-CoV-2 Antigen (Rapid) Positive (NEGATIVE) Test 04/26/21 05:30 04/26/21 09:25 04/26/21 11:18 04/27/21 04:15 Troponin I High Sensitivity 239 ng/L (4-50) Urine Collection Type Unknown Urine Color Yellow Urine Clarity Clear Urine pH 7.0 (<5.0-8.0) Urine Specific [place] 1.025 (1.000-1.030) Urine Protein 30 mg/dL (NEG-TRACE) Urine Glucose (UA) 500 mg/dL (NEG) Urine Ketones (Stick) Trace mg/dL (NEG) Urine Blood Small (NEG) Urine Nitrite Negative (NEG) Urine Bilirubin Negative (NEG) Urine Urobilinogen Dipstick 0.2 mg/dL (0.2 mg/dL) Urine Leukocyte Esterase Moderate (NEG) Urine RBC 6-10 /HPF (0-2) Urine WBC 11-20 /HPF (0-4) Urine Squamous Epithelial Cells Mod /LPF Urine Renal Epithelial Cells Few /LPF Urine Bacteria Moderate /HPF (0-FEW) Urine Mucus Slight /LPF O2 Saturation 94 % (92-99) Arterial Blood pH 7.38 (7.35-7.45) Arterial Blood pCO2 at Patient Temp 52 mmHg (35-46) Arterial Blood pO2 at Patient Temp 72 mmHg (65-108) Arterial Blood HCO3 30 mmol/L (21-28) Arterial Blood Base Excess 4 mmol/L (-3-3) FiO2 60% bipap White Blood Count 11.0 x10^3/uL (4.0-11.0) Red Blood Count 4.46 x10^6/uL (3.50-5.40) Hemoglobin 12.1 g/dL (12.0-15.5) Hematocrit 37.9 % (36.0-47.0) Mean Corpuscular Volume 85 fL (79-100) Mean Corpuscular Hemoglobin 27 pg (25-35) Mean Corpuscular Hemoglobin Concent 32 g/dL (31-37) Red Cell Distribution Width 18.2 % (11.5-14.5) Platelet Count 215 x10^3/uL (140-400) Neutrophils (%) (Auto) 76 % (31-73) Lymphocytes (%) (Auto) 15 % (24-48) Monocytes (%) (Auto) 9 % (0-9) Eosinophils (%) (Auto) 0 % (0-3) Basophils (%) (Auto) 0 % (0-3) Neutrophils # (Auto) 8.3 x10^3/uL (1.8-7.7) Lymphocytes # (Auto) 1.7 x10^3/uL (1.0-4.8) Monocytes # (Auto) 1.0 x10^3/uL (0.0-1.1) Eosinophils # (Auto) 0.0 x10^3/uL (0.0-0.7) Basophils # (Auto) 0.0 x10^3/uL (0.0-0.2) Sodium Level 148 mmol/L (136-145) Potassium Level 3.9 mmol/L (3.5-5.1) Chloride Level 108 mmol/L (98-107) Carbon Dioxide Level 30 mmol/L (21-32) Anion Gap 10 (6-14) Blood Urea Nitrogen 27 mg/dL (7-20) Creatinine 1.1 mg/dL (0.6-1.0) Estimated GFR (Cockcroft-Gault) 49.1 BUN/Creatinine Ratio 25 (6-20) Glucose Level 147 mg/dL (70-99) Calcium Level 7.8 mg/dL (8.5-10.1) Total Bilirubin 0.3 mg/dL (0.2-1.0) Aspartate Amino Transf (AST/SGOT) 44 U/L (15-37) Alanine Aminotransferase (ALT/SGPT) 32 U/L (14-59) Alkaline Phosphatase 94 U/L (46-116) Total Protein 5.8 g/dL (6.4-8.2) Albumin 2.2 g/dL (3.4-5.0) Albumin/Globulin Ratio 0.6 (1.0-1.7) Laboratory Tests Test 04/26/21 11:18 04/27/21 04:15 O2 Saturation 94 % (92-99) Arterial Blood pH 7.38 (7.35-7.45) Arterial Blood pCO2 at Patient Temp 52 mmHg (35-46) Arterial Blood pO2 at Patient Temp 72 mmHg (65-108) Arterial Blood HCO3 30 mmol/L (21-28) Arterial Blood Base Excess 4 mmol/L (-3-3) FiO2 60% bipap White Blood Count 11.0 x10^3/uL (4.0-11.0) Red Blood Count 4.46 x10^6/uL (3.50-5.40) Hemoglobin 12.1 g/dL (12.0-15.5) Hematocrit 37.9 % (36.0-47.0) Mean Corpuscular Volume 85 fL (79-100) Mean Corpuscular Hemoglobin 27 pg (25-35) Mean Corpuscular Hemoglobin Concent 32 g/dL (31-37) Red Cell Distribution Width 18.2 % (11.5-14.5) Platelet Count 215 x10^3/uL (140-400) Neutrophils (%) (Auto) 76 % (31-73) Lymphocytes (%) (Auto) 15 % (24-48) Monocytes (%) (Auto) 9 % (0-9) Eosinophils (%) (Auto) 0 % (0-3) Basophils (%) (Auto) 0 % (0-3) Neutrophils # (Auto) 8.3 x10^3/uL (1.8-7.7) Lymphocytes # (Auto) 1.7 x10^3/uL (1.0-4.8) Monocytes # (Auto) 1.0 x10^3/uL (0.0-1.1) Eosinophils # (Auto) 0.0 x10^3/uL (0.0-0.7) Basophils # (Auto) 0.0 x10^3/uL (0.0-0.2) Sodium Level 148 mmol/L (136-145) Potassium Level 3.9 mmol/L (3.5-5.1) Chloride Level 108 mmol/L (98-107) Carbon Dioxide Level 30 mmol/L (21-32) Anion Gap 10 (6-14) Blood Urea Nitrogen 27 mg/dL (7-20) Creatinine 1.1 mg/dL (0.6-1.0) Estimated GFR (Cockcroft-Gault) 49.1 BUN/Creatinine Ratio 25 (6-20) Glucose Level 147 mg/dL (70-99) Calcium Level 7.8 mg/dL (8.5-10.1) Total Bilirubin 0.3 mg/dL (0.2-1.0) Aspartate Amino Transf (AST/SGOT) 44 U/L (15-37) Alanine Aminotransferase (ALT/SGPT) 32 U/L (14-59) Alkaline Phosphatase 94 U/L (46-116) Total Protein 5.8 g/dL (6.4-8.2) Albumin 2.2 g/dL (3.4-5.0) Albumin/Globulin Ratio 0.6 (1.0-1.7) Medications Active Scripts Medications Dose Route/Sig Max Daily Dose Days Date Category Budesonide 0.5 Mg/2 Ml Ampul.neb 0.5 Mg NEB RTBID 30 12/05/20 Rx Atorvastatin Calcium 10 Mg Tablet 10 Mg PO QHS 30 12/05/20 Rx Tylenol (Acetaminophen) 325 Mg Tablet 1-2 Tab PO PRN Q4-6HRS PRN 12/03/20 Reported Multi Vitamin Daily (Multivitamin) 1 Each Tablet 1 Tab PO DAILY 30 12/03/20 Reported Anoro Ellipta 62.5-25 Mcg Inh (Umeclidinium Brm/Vilanterol Tr) 1 Each Disk.w.dev 1 Each IH DAILY 12/03/20 Reported Namenda (Memantine Hcl) 10 Mg Tablet 5 Mg PO DAILY 12/03/20 Reported Prednisone (Prednisone) 10 Mg Tablet 4 Tab PO DAILY 5 12/03/20 Reported [Oxygen] 4 L DAILY 12/03/20 Reported Duoneb 0.5-3(2.5) Mg/3 Ml (Albuterol/Ipratropium) 3 Ml Ampul.neb 3 Ml NEB QID 12/03/20 Reported Melatonin 10 Mg Tab.rapdis 1 Tab PO QHS 30 12/03/20 Reported Cyproheptadine Hcl 4 Mg Tablet 4 Mg PO DAILY 12/03/20 Reported Bupropion Xl (Bupropion Hcl) 300 Mg Tab.er.24h 300 Mg PO DAILY 12/03/20 Reported Protonix (Pantoprazole Sodium) 20 Mg Tablet.dr 40 Mg PO DAILY 12/03/20 Reported Amlodipine Besylate 5 Mg Tablet 5 Mg PO DAILY 12/03/20 Reported Lisinopril 20 Mg Tablet 1 Tab PO DAILY 12/03/20 Reported Comments Chest x-ray reviewed 04/27/2021. Significantly resolved left-sided pneumothorax. Chest tube is in place. Minimal subcu air on the left side Impression . 1. Acute on chronic hypoxic and hypercapnic respiratory failure secondary to multifactorial etiologies including large left sided pneumothorax, underlying chronic obstructive pulmonary disease with exacerbation and COVID-[address] 2[address] chest with a large pneumothorax on the left side. No evidence of pulmonary embolism. She is status post chest tube placement. CT angiogram shows some residual pneumothorax and a left lower lobe atelectasis. There is evidence of emphysema. 3. History of oxygen dependent chronic obstructive pulmonary disease. 4. Abnormal D-dimer, which is a nonspecific finding. No evidence of pulmonary embolism. 5. Severe protein-calorie malnutrition. 6. Mild azotemia. 7. Leukocytosis. Plan . 1. Discussed with RN . Clinically improving. Continue present nasal cannula at 6 L and as needed BiPAP 2. Follow daily chest x-rays. Pneumothorax almost resolved. Minimal air leak seen. 3. Pneumothorax could be caused by severe emphysema and blebs. COVID would be another contributing factor to Pneumothorax. 4. Continue daily x-ray and chest tube to suction until air leak is resolved. 5. P.r.n., pain medication. 6. Dexamethasone. 7. Remdesivir. 8. DVT prophylaxis. 9. Empiric antibiotics. 10. Discussed with Dr. Vallejo. And RN. JANAK DEVLIN MD Apr 27, 2021 09:39
--- NOTE | 2021-04-27 09:55 | RAD ---
Exam performed: One view chest HISTORY: Chest tube follow-up. DATE OF SERVICE: 04/27/2021. COMPARISON: One view chest from 04/26/2021. FINDINGS: Left chest tube terminates in the left apex. There are mild interstitial or airspace opacities in the left lung base which appears similar to minimally increased since yesterday's exam. There is no horacio r-cut pneumothorax. Improving left chest wall subcutaneous emphysema. There is a right-sided Port-A-C ath in place in similar position. The right lung appears clear. Mild blunting of the right costophren ic angle, perhaps tiny right pleural effusion. IMPRESSION: Interstitial and airspace opacities in the left lung base appears similar to slightly increased. Left chest tubeis in stable position. Electronically signed by: Ary Kim MD (04/27/2021 9:52 AM) [facility]
[2021-04-27 11:00] VITALS: BP 178/83
--- NOTE | 2021-04-27 11:03 | PDOC ---
Provider Note Date of Service: DATE: 04/27/21 TIME: 11:02 Provider Note vss, no temp,labs good- on dexa/remdes/rt for covid- cxr shows pneumo gone- add po norco and loraxz for prn , rest same Justifications for Admission Other Justification JEREMIAH VILA MD Apr 27, 2021 11:03
[2021-04-27] MEDS: HYDROcodone/APAP 5/325MG 1 TAB TABLET PO PRN ×2 (11:42→18:09)
[2021-04-27] MEDS: REMDESIVIR 100mg in NORMAL SALINE 250ML X 4 DAYS IV SCH (11:43)
[2021-04-27] MEDS: cefTRIAXone IV Push 1 GM VIAL. IVP SCH (11:43)
[2021-04-27 14:00] VITALS: BP 109/59
[2021-04-27 19:45] VITALS: BP 137/71
[2021-04-27] MEDS: ATORVASTATIN CALCIUM 10 MG TABLET. PO SCH (20:59)
[2021-04-27 23:45] VITALS: BP 144/70
--- NOTE | 2021-04-28 01:54 | NUR ---
PT PUT ON BIPAP AT HS PER DR DEVLIN, PT CALLED OUT SAYING THAT SHE DID NOT WANT TO WEAR IT BECAUSE SHE DIDN'T LIKE THE MASK. RN EXPLAINED TO PT THE IMPORTANCE OF WEARING HER BIPAP AT NIGHT, ESPECIALLY WITH COVID. PT STATES SHE WOULD NOT PUT IT BACK ON AND THAT SHE WOULD CALL HER DAUGHTER TO TAKE HER HOME. PT PLACED ON 10L NC
[2021-04-28 03:50] VITALS: BP 125/78
[2021-04-28] MEDS: HYDROcodone/APAP 5/325MG 1 TAB TABLET PO PRN ×2 (05:29→18:00)
[2021-04-28] MEDS: HEPARIN for SUB-Q USE 5,000 UNIT/ML VIAL. SQ SCH ×3 (05:29→19:25)
[2021-04-28] MEDS: IPRATROPIUM/ALBUTEROL 20/100mcg/INH INHALER. INH SCH ×4 (05:29→18:00)
[2021-04-28 07:00] VITALS: BP 134/78
[2021-04-28] MEDS: BUDESONIDE 0.5 MG/2 ML NEBU. NEB SCH ×2 (08:00→19:26)
--- NOTE | 2021-04-28 09:18 | RAD ---
XR CHEST 1V INDICATION: PTX COMPARISON STUDY: 04/27/2021. FINDINGS: Life Support Devices: Stable right sided central venous catheter which loops superiorly into the righ t internal jugular vein before coursing down to terminate in the mid SVC. Stable left chest tube. Lungs: Normal lung volume. Increasing left mid and lower lung opacities. Pleura: Stable small bilateral pleural effusions. Question tiny residual left apical pneumothorax. Heart and Mediastinum: Stable cardiomediastinal silhouette and great vessels. IMPRESSION: 1. Question tiny residual left apical pneumothorax. 2. Increasing left mid and lower lung opacities. 3. Stable small bilateral pleural effusions. 4. Stable Life support devices. Electronically signed by: Amilcar Estrada MD (04/28/2021 9:15 AM) [id number]
[2021-04-28] MEDS: MEMANTINE 5 MG TABLET. PO SCH (10:01)
[2021-04-28] MEDS: PANTOPRAZOLE 40 MG TABLET.DR. PO SCH (10:01)
[2021-04-28] MEDS: LISINOPRIL 20 MG TABLET PO SCH (10:01)
[2021-04-28] MEDS: buPROPion XL 150 MG TAB.ER.24H. PO SCH (10:01)
[2021-04-28] MEDS: DEXAMETHASONE SOD PHOS 4 MG/ML VIAL IVP SCH (10:03)
[2021-04-28] MEDS: cefTRIAXone IV Push 1 GM VIAL. IVP SCH (10:06)
[2021-04-28] MEDS: REMDESIVIR 100mg in NORMAL SALINE 250ML X 4 DAYS IV SCH (10:07)
--- NOTE | 2021-04-28 10:28 | PDOC ---
PULMONARY PROGRESS NOTES DATE: 04/28/21 TIME: 10:26 Subjective Patient feels better. Off the BiPAP and down to 10 L oxygen via nasal cannula. Left chest tube in place. No air leak seen. Vitals Vital Signs Date Time Temp Pulse Resp B/P (MAP) Pulse Ox O2 Delivery O2 Flow Rate FiO2 04/28/21 10:01 93 134/78 04/28/21 07:00 97.7 20 97 High Flow Nasal Cannula 10.0 97.7 General: Alert, No acute distress Lungs: Other (Decreased breath sounds bilaterally) Cardiovascular: S1 Abdomen: Soft Extremities: No Edema Skin: Warm Labs Laboratory Tests Test 04/26/21 11:18 04/27/21 04:15 O2 Saturation 94 % (92-99) Arterial Blood pH 7.38 (7.35-7.45) Arterial Blood pCO2 at Patient Temp 52 mmHg (35-46) Arterial Blood pO2 at Patient Temp 72 mmHg (65-108) Arterial Blood HCO3 30 mmol/L (21-28) Arterial Blood Base Excess 4 mmol/L (-3-3) FiO2 60% bipap White Blood Count 11.0 x10^3/uL (4.0-11.0) Red Blood Count 4.46 x10^6/uL (3.50-5.40) Hemoglobin 12.1 g/dL (12.0-15.5) Hematocrit 37.9 % (36.0-47.0) Mean Corpuscular Volume 85 fL (79-100) Mean Corpuscular Hemoglobin 27 pg (25-35) Mean Corpuscular Hemoglobin Concent 32 g/dL (31-37) Red Cell Distribution Width 18.2 % (11.5-14.5) Platelet Count 215 x10^3/uL (140-400) Neutrophils (%) (Auto) 76 % (31-73) Lymphocytes (%) (Auto) 15 % (24-48) Monocytes (%) (Auto) 9 % (0-9) Eosinophils (%) (Auto) 0 % (0-3) Basophils (%) (Auto) 0 % (0-3) Neutrophils # (Auto) 8.3 x10^3/uL (1.8-7.7) Lymphocytes # (Auto) 1.7 x10^3/uL (1.0-4.8) Monocytes # (Auto) 1.0 x10^3/uL (0.0-1.1) Eosinophils # (Auto) 0.0 x10^3/uL (0.0-0.7) Basophils # (Auto) 0.0 x10^3/uL (0.0-0.2) Sodium Level 148 mmol/L (136-145) Potassium Level 3.9 mmol/L (3.5-5.1) Chloride Level 108 mmol/L (98-107) Carbon Dioxide Level 30 mmol/L (21-32) Anion Gap 10 (6-14) Blood Urea Nitrogen 27 mg/dL (7-20) Creatinine 1.1 mg/dL (0.6-1.0) Estimated GFR (Cockcroft-Gault) 49.1 BUN/Creatinine Ratio 25 (6-20) Glucose Level 147 mg/dL (70-99) Calcium Level 7.8 mg/dL (8.5-10.1) Total Bilirubin 0.3 mg/dL (0.2-1.0) Aspartate Amino Transf (AST/SGOT) 44 U/L (15-37) Alanine Aminotransferase (ALT/SGPT) 32 U/L (14-59) Alkaline Phosphatase 94 U/L (46-116) Total Protein 5.8 g/dL (6.4-8.2) Albumin 2.2 g/dL (3.4-5.0) Albumin/Globulin Ratio 0.6 (1.0-1.7) Medications Active Scripts Medications Dose Route/Sig Max Daily Dose Days Date Category Budesonide 0.5 Mg/2 Ml Ampul.neb 0.5 Mg NEB RTBID 30 12/05/20 Rx Atorvastatin Calcium 10 Mg Tablet 10 Mg PO QHS 30 12/05/20 Rx Tylenol (Acetaminophen) 325 Mg Tablet 1-2 Tab PO PRN Q4-6HRS PRN 12/03/20 Reported Multi Vitamin Daily (Multivitamin) 1 Each Tablet 1 Tab PO DAILY 30 12/03/20 Reported Anoro Ellipta 62.5-25 Mcg Inh (Umeclidinium Brm/Vilanterol Tr) 1 Each Disk.w.dev 1 Each IH DAILY 12/03/20 Reported Namenda (Memantine Hcl) 10 Mg Tablet 5 Mg PO DAILY 12/03/20 Reported Prednisone (Prednisone) 10 Mg Tablet 4 Tab PO DAILY 5 12/03/20 Reported [Oxygen] 4 L DAILY 12/03/20 Reported Duoneb 0.5-3(2.5) Mg/3 Ml (Albuterol/Ipratropium) 3 Ml Ampul.neb 3 Ml NEB QID 12/03/20 Reported Melatonin 10 Mg Tab.rapdis 1 Tab PO QHS 30 12/03/20 Reported Cyproheptadine Hcl 4 Mg Tablet 4 Mg PO DAILY 12/03/20 Reported Bupropion Xl (Bupropion Hcl) 300 Mg Tab.er.24h 300 Mg PO DAILY 12/03/20 Reported Protonix (Pantoprazole Sodium) 20 Mg Tablet.dr 40 Mg PO DAILY 12/03/20 Reported Amlodipine Besylate 5 Mg Tablet 5 Mg PO DAILY 12/03/20 Reported Lisinopril 20 Mg Tablet 1 Tab PO DAILY 12/03/20 Reported Comments Chest x-ray reviewed 04/28/2021 I do not see a definite pneumothorax. There is mild increase in left basal effusion with atelectasis chest x-ray reviewed 04/27/2021. Significantly resolved left-sided pneumothorax. Chest tube is in place. Minimal subcu air on the left side Impression . 1. Acute on chronic hypoxic and hypercapnic respiratory failure secondary to multifactorial etiologies including large left sided pneumothorax, underlying chronic obstructive pulmonary disease with exacerbation and COVID-[address] 2[address] CT chest with a large pneumothorax on the left side. No evidence of pulmonary embolism. She is status post chest tube placement. CT angiogram shows some residual pneumothorax and a left lower lobe atelectasis. There is evidence of emphysema. 3. History of oxygen dependent chronic obstructive pulmonary disease. 4. Abnormal D-dimer, which is a nonspecific finding. No evidence of pulmonary embolism. 5. Severe protein-calorie malnutrition. 6. Mild azotemia. 7. Leukocytosis. Plan . 1. Discussed with RN . Clinically improving. Continue present nasal cannula and as needed BiPAP 2. Follow daily chest x-rays. Pneumothorax almost resolved. No air leak seen. We will place the chest tube to waterseal 3. Pneumothorax could be caused by severe emphysema and blebs. COVID would be another contributing factor to Pneumothorax. 4. Continue daily x-ray 5. P.r.n., pain medication. 6. Dexamethasone. 7. Remdesivir. 8. DVT prophylaxis. 9. Empiric antibiotics. 10. Discussed with RN. JANAK DEVLIN MD Apr 28, 2021 10:28
--- NOTE | 2021-04-28 11:00 | PDOC ---
HERMAN PARK APRN 04/28/21 1100: CARDIO Progress Notes Date and Time Date of Service 04/28/21 Time of Evaluation 1100 Subjective Subjective: No Chest Pain, No Palpitations, No Dizziness, Other (not more SOA) Vitals Vitals Vital Signs Date Time Temp Pulse Resp B/P (MAP) Pulse Ox O2 Delivery O2 Flow Rate FiO2 04/28/21 10:01 93 134/78 04/28/21 07:00 97.7 20 97 High Flow Nasal Cannula 10.0 97.7 Weight Weight [ ] Input and Output Intake and Output Intake and Output 04/28/21 07:00 Intake Total 200 ml Output Total 423 ml Balance -223 ml Intake Oral 200 ml Output Urine Total 400 ml Chest Tube Drainage Total 23 ml Microbiology Micro Microbiology 04/26/21 Urine Culture - Final, Complete 04/26/21 Blood Culture - Preliminary, Resulted NO GROWTH AFTER 2 DAYS Physical Exam HEENT: Neck Supple W Full Motion Chest: Symmetric LUNGS: Other (diminished, left chest tube) Heart: RRR (SR/ST) Abdomen: Soft N/T Extremities: No Edema Neurology: alert, oriented, follow commands Assessment Assessment 1. Acute on chronic respiratory failure secondary to COVID PNA, pneumothorax. s/p chest tube placement. off BiPAP 2. Mild troponin elevation; high sensitivity trop peak 240. Most probable type II, demand ischemia in setting of above. Echo 12/24 with preserved LV systolic function 3. Hypertension; controlled overall 4. AECOPD with chronic O2 5. ZACK with CPAP 6. Hyperlipidemia; statin Recommendations Ongoing pulmonary optimization, treatment of COVID Statin therapy Consider outpatient ischemic evaluation Justicifation of Admission Dx: Justifications for Admission: Justification of Admission Dx: Yes JACKY VELÁZQUEZ MD 04/29/21 0809: CARDIO Progress Notes Plan Plan Late entry for 04/28/2021 Patient seen and examined. Agree with above nurse practitioner note. Supportive care. HERMAN PARK APRN Apr 28, 2021 11:00 JACKY VELÁZQUEZ MD Apr 29, 2021 08:09
[2021-04-28 11:03] VITALS: BP 153/77
--- NOTE | 2021-04-28 13:06 | NUR ---
SS following for discharge planning. SS reviewed pt chart and discussed with pt RN. Pt is LTC resident from [place], ; fax [phone]. COVID19 positive. Pt is currently requiring oxygen at ten liters nasal canula. Chest tube in place and on water suction. Pt on IV Remdesivir, IV Decadron, and IV Rocephin. Not ready. SS will continue to follow for discharge planning.
[2021-04-28 14:00] VITALS: BP 169/88
--- NOTE | 2021-04-28 19:19 | PN ---
DATE: 04/28/2021 LOCATION: She is in room 658. SUBJECTIVE: This 70-year-old female remains hospitalized with a large left-sided pneumonia with pneumothorax and chest tube placement. At this point, she is also COVID positive. She had a leukocytosis on admission, which is improving with antibiotics. She was initially on BiPAP and is down to 10 liters of oxygen this morning. She states she overall feels somewhat better. OBJECTIVE: VITAL SIGNS: Stable. She is afebrile. GENERAL: She is awake and alert. CHEST: Reveals decreased breath sounds bilaterally. Chest tube does not have an air leak. HEART: Regular rate and rhythm. ABDOMEN: Benign. EXTREMITIES: Without cyanosis, clubbing, or edema. ASSESSMENT: 1. Acute hypoxic respiratory failure due to pneumonia complicated by COVID in addition. 2. Left pneumothorax with chest tube. 3. Severe chronic obstructive pulmonary disease. PLAN: Continue supportive care. Help of Pulmonary appreciated, antibiotics and COVID treatment ongoing oxygen as needed. MIKE DR: Mary TID: [id number]
[2021-04-28] MEDS: ATORVASTATIN CALCIUM 10 MG TABLET. PO SCH (19:25)
[2021-04-28] MEDS: LACTOBACILLUS RHAMNOSUS GG 1 CAPSULE. PO SCH (19:26)
[2021-04-28 19:40] VITALS: BP 136/73
[2021-04-28 23:00] VITALS: BP 123/66
[2021-04-29] VITALS (7 sets, daily range): BP systolic 131–170; BP diastolic 72–92
[2021-04-29] MEDS: HEPARIN for SUB-Q USE 5,000 UNIT/ML VIAL. SQ SCH ×3 (05:40→21:25)
[2021-04-29] MEDS: IPRATROPIUM/ALBUTEROL 20/100mcg/INH INHALER. INH SCH ×4 (05:40→17:31)
[2021-04-29] MEDS: BUDESONIDE 0.5 MG/2 ML NEBU. NEB SCH (08:00)
--- NOTE | 2021-04-29 08:28 | PN ---
DATE: 04/29/2021 LOCATION: She is in room 658. SUBJECTIVE: This 70-year-old female remains hospitalized with acute hypoxic respiratory failure due to combination of bacterial pneumonia as well as COVID-19 infection. Leukocytosis is improved. She is awake and alert, remains on 10 liters of oxygen this morning. Continues to feel somewhat better. OBJECTIVE: VITAL SIGNS: Stable. She is awake and alert. She is afebrile. CHEST: Decreased breath sounds bilaterally. HEART: Regular rate and rhythm. ABDOMEN: Benign. EXTREMITIES: Without cyanosis, clubbing, edema. ASSESSMENT: 1. Acute hypoxic respiratory failure due to bacterial pneumonia and COVID-19 infection. 2. Left pneumothorax with chest tube. 3. Severe chronic obstructive pulmonary disease. PLAN: Continue supportive care. DISPOSITION: Chest tube per Pulmonary, otherwise continue. PARAS DR: Mary TID: [id number]
--- NOTE | 2021-04-29 08:31 | RAD ---
EXAM: CHEST ONE VIEW. HISTORY: Pneumothorax, chest tube. COMPARISON: 04/28/2021. FINDINGS: A frontal view of the chest is obtained. A right internal jugular central venous catheter h as its tip in the superior vena cava. A left chest tube remains in place. Small bilateral pleural effusions are unchanged. Left basilar infiltrates and atelectasis are mildly improved. They are stable in the right costophrenic angle. There is no appreciable pneumothorax. A sm all amount of left chest wall gas has decreased. The heart is not enlarged. There are atherosclerotic calcifications of the aorta. IMPRESSION: 1. No appreciable pneumothorax. 2. Improved left greater than right basilar infiltrates. Trace bilateral pleural effusions. Electronically signed by: Adolfo Love MD (04/29/2021 8:29 AM) [id number]
[2021-04-29] MEDS: PANTOPRAZOLE 40 MG TABLET.DR. PO SCH (08:49)
[2021-04-29] MEDS: LACTOBACILLUS RHAMNOSUS GG 1 CAPSULE. PO SCH ×2 (08:49→21:24)
[2021-04-29] MEDS: buPROPion XL 150 MG TAB.ER.24H. PO SCH (08:49)
[2021-04-29] MEDS: DEXAMETHASONE SOD PHOS 4 MG/ML VIAL IVP SCH (08:50)
[2021-04-29] MEDS: LISINOPRIL 20 MG TABLET PO SCH (08:50)
[2021-04-29] MEDS: MEMANTINE 5 MG TABLET. PO SCH (08:50)
[2021-04-29] MEDS: cefTRIAXone IV Push 1 GM VIAL. IVP SCH (08:51)
--- NOTE | 2021-04-29 09:35 | PDOC ---
PULMONARY PROGRESS NOTES DATE: 04/29/21 TIME: 09:35 Subjective Patient is tired, not more short of breath. Chest tube no air leak has been on wall suction Vitals Vital Signs Date Time Temp Pulse Resp B/P (MAP) Pulse Ox O2 Delivery O2 Flow Rate FiO2 04/29/21 08:50 109 140/92 04/29/21 07:32 90 High Flow Nasal Cannula 10.0 04/29/21 07:00 97.3 22 97.3 General: Alert, No acute distress Lungs: Other (Decreased breath sounds bilaterally) Cardiovascular: S1 Abdomen: Soft Extremities: No Edema Skin: Warm Medications Active Scripts Medications Dose Route/Sig Max Daily Dose Days Date Category Budesonide 0.5 Mg/2 Ml Ampul.neb 0.5 Mg NEB RTBID 30 12/05/20 Rx Atorvastatin Calcium 10 Mg Tablet 10 Mg PO QHS 30 12/05/20 Rx Tylenol (Acetaminophen) 325 Mg Tablet 1-2 Tab PO PRN Q4-6HRS PRN 12/03/20 Reported Multi Vitamin Daily (Multivitamin) 1 Each Tablet 1 Tab PO DAILY 30 12/03/20 Reported Anoro Ellipta 62.5-25 Mcg Inh (Umeclidinium Brm/Vilanterol Tr) 1 Each Disk.w.dev 1 Each IH DAILY 12/03/20 Reported Namenda (Memantine Hcl) 10 Mg Tablet 5 Mg PO DAILY 12/03/20 Reported Prednisone (Prednisone) 10 Mg Tablet 4 Tab PO DAILY 5 12/03/20 Reported [Oxygen] 4 L DAILY 12/03/20 Reported Duoneb 0.5-3(2.5) Mg/3 Ml (Albuterol/Ipratropium) 3 Ml Ampul.neb 3 Ml NEB QID 12/03/20 Reported Melatonin 10 Mg Tab.rapdis 1 Tab PO QHS 30 12/03/20 Reported Cyproheptadine Hcl 4 Mg Tablet 4 Mg PO DAILY 12/03/20 Reported Bupropion Xl (Bupropion Hcl) 300 Mg Tab.er.24h 300 Mg PO DAILY 12/03/20 Reported Protonix (Pantoprazole Sodium) 20 Mg Tablet.dr 40 Mg PO DAILY 12/03/20 Reported Amlodipine Besylate 5 Mg Tablet 5 Mg PO DAILY 12/03/20 Reported Lisinopril 20 Mg Tablet 1 Tab PO DAILY 12/03/20 Reported Impression . 1. Acute on chronic hypoxic and hypercapnic respiratory failure secondary to multifactorial etiologies including large left sided pneumothorax, underlying chronic obstructive pulmonary disease with exacerbation and COVID-[address] pneumonia[address] 2[address] CT chest with a large pneumothorax on the left side. No evidence of pulmonary embolism. She is status post chest tube placement. CT angiogram shows some residual pneumothorax and a left lower lobe atelectasis. There is evidence of emphysema. 3. History of oxygen dependent chronic obstructive pulmonary disease. 4. Abnormal D-dimer, which is a nonspecific finding. No evidence of pulmonary embolism. 5. Severe protein-calorie malnutrition. 6. Mild azotemia. 7. Leukocytosis. Chest x-ray 125 reviewed, no pneumothorax Plan . Updated 04/29 No air leak on chest tube, will clamp tube X-ray reviewed no pneumothorax As needed BiPAP Dexamethasone Remdesivir Repeat x-ray in the a.m. 04/28 1. Discussed with RN . Clinically improving. Continue present nasal cannula and as needed BiPAP 2. Follow daily chest x-rays. Pneumothorax almost resolved. No air leak seen. We will place the chest tube to waterseal 3. Pneumothorax could be caused by severe emphysema and blebs. COVID would be another contributing factor to Pneumothorax. 4. Continue daily x-ray 5. P.r.n., pain medication. 6. Dexamethasone. 7. Remdesivir. 8. DVT prophylaxis. 9. Empiric antibiotics. 10. Discussed with RN. LEANDRO CONSTANTINO MD Apr 29, 2021 09:35
[2021-04-29] MEDS: HYDROcodone/APAP 5/325MG 1 TAB TABLET PO PRN ×2 (09:38→21:24)
[2021-04-29] MEDS: REMDESIVIR 100mg in NORMAL SALINE 250ML X 4 DAYS IV SCH (09:39)
--- NOTE | 2021-04-29 12:24 | PDOC ---
HERMAN PARK APRN 04/29/21 1224: CARDIO Progress Notes Date and Time Date of Service 04/29/21 Time of Evaluation 1220 Subjective Subjective: No Chest Pain, No Palpitations, No Dizziness, Other (not more SOA) Vitals Vitals Vital Signs Date Time Temp Pulse Resp B/P (MAP) Pulse Ox O2 Delivery O2 Flow Rate FiO2 04/29/21 11:00 98.3 107 22 137/79 (98) 94 High Flow Nasal Cannula 10.0 98.3 Weight Weight [ ] Input and Output Intake and Output Intake and Output 04/29/21 07:00 Intake Total 470 ml Output Total 13 ml Balance 457 ml Intake Oral 470 ml Chest Tube Drainage Total 13 ml # Voids 2 Microbiology Micro Microbiology 04/26/21 Urine Culture - Final, Complete 04/26/21 Blood Culture - Preliminary, Resulted NO GROWTH AFTER 3 DAYS Physical Exam HEENT: Neck Supple W Full Motion Chest: Symmetric LUNGS: Other (diminished, left chest tube) Heart: RRR (SR/ST) Abdomen: Soft N/T Extremities: No Edema Neurology: alert, oriented, follow commands Assessment Assessment 1. Acute on chronic respiratory failure secondary to COVID PNA, pneumothorax. s/p chest tube placement. off BiPAP 2. Mild troponin elevation; high sensitivity trop peak 240. Most probable type II, demand ischemia in setting of above. Echo 12/24 with preserved LV systolic function 3. Hypertension; controlled overall 4. AECOPD with chronic O2 5. ZACK with CPAP 6. Hyperlipidemia; statin Recommendations Ongoing pulmonary optimization, treatment of COVID Statin therapy Add ASA Consider outpatient ischemic evaluation Supportive care Justicifation of Admission Dx: Justifications for Admission: Justification of Admission Dx: Yes JACKY VELÁZQUEZ MD 04/29/21 2020: CARDIO Progress Notes Plan Plan The patient was seen and interviewed as well as examined at the bedside. The chart was reviewed. The case was discussed. Agree with the plan of care. HERMAN PARK APRN Apr 29, 2021 12:24 JACKY VELÁZQUEZ MD Apr 29, 2021 20:20
--- NOTE | 2021-04-29 12:48 | NUR ---
SS following up with discharge planning. SS reviewed pt chart and discussed with pt RN. Pt is LTC resident from [place], ; fax [phone]. Pt is currently requiring oxygen at ten liters nasal canula. COVID19 positive. Pt on IV Remdesivir, IV Decadron, and IV Rocephin. Chest tube on water seal. Not ready. SS will continue to follow for discharge planning.
[2021-04-29] MEDS: METOPROLOL TART IMMED RELEASE 25 MG TABLET. PO SCH (21:24)
[2021-04-29] MEDS: ATORVASTATIN CALCIUM 10 MG TABLET. PO SCH (21:24)
[2021-04-29] MEDS: FLUTICASONE FUROATE 100mcg/INH ELLIPTA INHALER. INH SCH (22:01)
[2021-04-30] MEDS: IPRATROPIUM/ALBUTEROL 20/100mcg/INH INHALER. INH SCH ×4 (00:46→17:06)
[2021-04-30 03:00] VITALS: BP 128/69
[2021-04-30] MEDS: PANTOPRAZOLE 40 MG TABLET.DR. PO SCH (05:25)
[2021-04-30] MEDS: HEPARIN for SUB-Q USE 5,000 UNIT/ML VIAL. SQ SCH ×3 (05:26→21:04)
[2021-04-30 07:00] VITALS: BP 159/81
--- NOTE | 2021-04-30 08:36 | RAD ---
EXAM: XR CHEST 1V 04/30/2021 7:48 AM CLINICAL INDICATION: Pneumothorax COMPARISON: Chest radiograph 04/29/2021 TECHNIQUE: AP upright view of the chest FINDINGS: The left chest tube is unchanged. Right IJ central venous catheter is unchanged with tip o lorraine the superior vena cava. The heart is normal in size. Lungs are adequately expanded. Increased, sm all left apical pneumothorax. There are unchanged bibasilar opacities and small left pleural effusion . Increased soft tissue gas in the left chest wall. IMPRESSION: 1. Increased small left apical pneumothorax with chest tube in place. 2. Increased subcutaneous emphysema left chest wall. 3. Unchanged bibasilar opacities and small left pleural effusion. Electronically signed by: Sahra Berry MD (04/30/2021 8:34 AM) [id number]
[2021-04-30] MEDS: FLUTICASONE FUROATE 100mcg/INH ELLIPTA INHALER. INH SCH (09:00)
[2021-04-30] MEDS: buPROPion XL 150 MG TAB.ER.24H. PO SCH (09:39)
[2021-04-30] MEDS: METOPROLOL TART IMMED RELEASE 25 MG TABLET. PO SCH ×2 (09:40→21:03)
[2021-04-30] MEDS: ASPIRIN ENTERIC COATED 81 MG TABLET.DR. PO SCH (09:40)
[2021-04-30] MEDS: cefTRIAXone IV Push 1 GM VIAL. IVP SCH (09:40)
[2021-04-30] MEDS: DEXAMETHASONE SOD PHOS 4 MG/ML VIAL IVP SCH (09:41)
--- NOTE | 2021-04-30 09:45 | PDOC ---
PULMONARY PROGRESS NOTES DATE: 04/30/21 TIME: 09:45 Subjective Patient at times more short of air Tired and fatigued Sitting up in a chair Vitals Vital Signs Date Time Temp Pulse Resp B/P (MAP) Pulse Ox O2 Delivery O2 Flow Rate FiO2 04/30/21 07:00 97.3 87 20 159/81 (107) 95 Nasal Cannula 3.0 97.3 ROS: No Nausea, No Chest Pain, No Abdominal Pain, No Increase Cough General: Alert, No acute distress Lungs: Clear, Other (Subcutaneous emphysema) Cardiovascular: S1, Other Abdomen: Soft Neuro Exam: Alert Extremities: No Edema Skin: Warm Medications Active Scripts Medications Dose Route/Sig Max Daily Dose Days Date Category Budesonide 0.5 Mg/2 Ml Ampul.neb 0.5 Mg NEB RTBID 30 12/05/20 Rx Atorvastatin Calcium 10 Mg Tablet 10 Mg PO QHS 30 12/05/20 Rx Tylenol (Acetaminophen) 325 Mg Tablet 1-2 Tab PO PRN Q4-6HRS PRN 12/03/20 Reported Multi Vitamin Daily (Multivitamin) 1 Each Tablet 1 Tab PO DAILY 30 12/03/20 Reported Anoro Ellipta 62.5-25 Mcg Inh (Umeclidinium Brm/Vilanterol Tr) 1 Each Disk.w.dev 1 Each IH DAILY 12/03/20 Reported Namenda (Memantine Hcl) 10 Mg Tablet 5 Mg PO DAILY 12/03/20 Reported Prednisone (Prednisone) 10 Mg Tablet 4 Tab PO DAILY 5 12/03/20 Reported [Oxygen] 4 L DAILY 12/03/20 Reported Duoneb 0.5-3(2.5) Mg/3 Ml (Albuterol/Ipratropium) 3 Ml Ampul.neb 3 Ml NEB QID 12/03/20 Reported Melatonin 10 Mg Tab.rapdis 1 Tab PO QHS 30 12/03/20 Reported Cyproheptadine Hcl 4 Mg Tablet 4 Mg PO DAILY 12/03/20 Reported Bupropion Xl (Bupropion Hcl) 300 Mg Tab.er.24h 300 Mg PO DAILY 12/03/20 Reported Protonix (Pantoprazole Sodium) 20 Mg Tablet.dr 40 Mg PO DAILY 12/03/20 Reported Amlodipine Besylate 5 Mg Tablet 5 Mg PO DAILY 12/03/20 Reported Lisinopril 20 Mg Tablet 1 Tab PO DAILY 12/03/20 Reported Impression . 1. Acute on chronic hypoxic and hypercapnic respiratory failure secondary to multifactorial etiologies including large left sided pneumothorax, underlying chronic obstructive pulmonary disease with exacerbation and COVID-19 viral pneumonia[address] 2[address] CT chest with a large pneumothorax on the left side. No evidence of pulmonary embolism. She is status post chest tube placement. CT angiogram shows some residual pneumothorax and a left lower lobe atelectasis. There is evidence of emphysema. 3. History of oxygen dependent chronic obstructive pulmonary disease. 4. Abnormal D-dimer, which is a nonspecific finding. No evidence of pulmonary embolism. 5. Severe protein-calorie malnutrition. 6. Mild azotemia. 7. Leukocytosis. Chest x-ray 125 reviewed, no pneumothorax Plan . Updated 04/30 Chest tube clamped yesterday Recurrent pneumo Place chest tube on wall suction Discussed with RN As needed BiPAP Continue current support Repeat chest x-ray in the a.m. updated 04/29 No air leak on chest tube, will clamp tube X-ray reviewed no pneumothorax As needed BiPAP Dexamethasone Remdesivir Repeat x-ray in the a.m. LEANDRO CONSTANTINO MD Apr 30, 2021 09:45
[2021-04-30] MEDS: LACTOBACILLUS RHAMNOSUS GG 1 CAPSULE. PO SCH ×2 (09:47→21:02)
[2021-04-30] MEDS: MEMANTINE 5 MG TABLET. PO SCH (09:50)
[2021-04-30] MEDS: LISINOPRIL 20 MG TABLET PO SCH (09:50)
[2021-04-30] MEDS: REMDESIVIR 100mg in NORMAL SALINE 250ML X 4 DAYS IV SCH (09:52)
[2021-04-30] MEDS: HYDROcodone/APAP 5/325MG 1 TAB TABLET PO PRN ×2 (10:05→14:54)
[2021-04-30 10:38] VITALS: BP 155/78
--- NOTE | 2021-04-30 12:47 | NUR ---
SS following up with discharge planning. SS reviewed pt chart and discussed with pt RN. Pt is LTC resident from [place], ; fax [phone]. Pt was on seven liters nasal canula this morning but desat's with movement and is currently requiring ten liters nasal canula. COVID19 positive. Pt on IV Decadron and IV Rocephin. Chest tube hooked back up to suction. Not ready. Clinical updates phoned and faxed to [place]. SS will continue to follow for discharge planning.
[2021-04-30 15:00] VITALS: BP 136/62
[2021-04-30 19:00] VITALS: BP 145/63
[2021-04-30] MEDS: ATORVASTATIN CALCIUM 10 MG TABLET. PO SCH (21:03)
[2021-04-30 23:35] VITALS: BP 140/67
[2021-05-01] MEDS: IPRATROPIUM/ALBUTEROL 20/100mcg/INH INHALER. INH SCH ×5 (00:33→23:57)
--- NOTE | 2021-05-01 02:13 | PN ---
DATE: 04/30/2021 LOCATION: She is in room 658. SUBJECTIVE: This 70-year-old female remains hospitalized with acute hypoxic respiratory failure due to combination of pneumonia, COVID-19 infection. Leukocytosis is improving. She has a chest tube present with no leak, but chest x-ray after I saw her showed recurrent pneumonia and has been put back to suction. She was on 7 liters nasal cannula oxygen as I had seen her resting quietly and continues to feel like she feels a little better. OBJECTIVE: VITAL SIGNS: Stable. She is awake and alert. CHEST: Decreased breath sounds bilaterally. HEART: Regular rate and rhythm. ABDOMEN: Benign. EXTREMITIES: Without cyanosis, clubbing, edema. ASSESSMENT: 1. Acute hypoxic respiratory failure due to left-sided bacterial pneumonia complicated by COVID-19 infection. 2. Left pneumothorax with chest tube. 3. Severe chronic obstructive pulmonary disease. PLAN: Continue supportive care. Pulmonary help appreciated. CHRISTINA DR: Mary TID: [id number]
[2021-05-01 02:34] VITALS: BP 141/74
[2021-05-01] MEDS: HEPARIN for SUB-Q USE 5,000 UNIT/ML VIAL. SQ SCH ×3 (05:41→21:41)
[2021-05-01] MEDS: PANTOPRAZOLE 40 MG TABLET.DR. PO SCH (05:41)
[2021-05-01 07:30] VITALS: BP 155/81
[2021-05-01] MEDS: buPROPion XL 150 MG TAB.ER.24H. PO SCH (08:30)
[2021-05-01] MEDS: ASPIRIN ENTERIC COATED 81 MG TABLET.DR. PO SCH (08:30)
[2021-05-01] MEDS: MEMANTINE 5 MG TABLET. PO SCH (08:30)
[2021-05-01] MEDS: METOPROLOL TART IMMED RELEASE 25 MG TABLET. PO SCH ×2 (08:30→21:41)
[2021-05-01] MEDS: LACTOBACILLUS RHAMNOSUS GG 1 CAPSULE. PO SCH ×2 (08:31→21:40)
[2021-05-01] MEDS: cefTRIAXone IV Push 1 GM VIAL. IVP SCH (08:31)
[2021-05-01] MEDS: DEXAMETHASONE SOD PHOS 4 MG/ML VIAL IVP SCH (08:31)
--- NOTE | 2021-05-01 08:32 | RAD ---
Single view of the chest. 05/01/2021 7:56 AM Indication: Reason: PNEUMOTHORAX z Comparison: Chest radiograph, yesterday Findings: There is a left chest tube in place. Tube is been partially retracted with side port now cl ose to the chest wall. Left-sided subcutaneous emphysema is slightly more prominent, extending into t he neck. A definitive pneumothorax on the left is not identified. Interstitial coarsening is similar. Left basilar scarring, atelectasis, small effusion is similar. Right internal jugular central venous catheter projects over the superior vena cava, unchanged. IMPRESSION: 1. Interval partial retraction of left-sided chest tube with side-port projecting over the chest wall . No appreciable pneumothorax 2. Left-sided subcutaneous emphysema, slightly more prominent extending into the neck Electronically signed by: Darvin Barkley MD (05/01/2021 8:29 AM) [id number]
[2021-05-01] MEDS: FLUTICASONE FUROATE 100mcg/INH ELLIPTA INHALER. INH SCH (08:37)
[2021-05-01] MEDS: HYDROcodone/APAP 5/325MG 1 TAB TABLET PO PRN (08:43)
[2021-05-01] MEDS: LISINOPRIL 20 MG TABLET PO SCH (10:32)
--- NOTE | 2021-05-01 11:01 | PDOC ---
PULMONARY PROGRESS NOTES DATE: 05/01/21 TIME: 10:58 Subjective Patient now more short of air, wishes to know when she will be discharged home Vitals Vital Signs Date Time Temp Pulse Resp B/P (MAP) Pulse Ox O2 Delivery O2 Flow Rate FiO2 05/01/21 10:32 90 155/81 05/01/21 09:13 97 Nasal Cannula 10.0 05/01/21 07:30 96.0 21 96.0 ROS: No Nausea, No Chest Pain, No Abdominal Pain, No Increase Cough General: Alert, No acute distress Lungs: Clear, Other (Subcutaneous emphysema) Cardiovascular: S1, Other Abdomen: Soft Neuro Exam: Alert Extremities: No Edema Skin: Warm Medications Active Scripts Medications Dose Route/Sig Max Daily Dose Days Date Category Budesonide 0.5 Mg/2 Ml Ampul.neb 0.5 Mg NEB RTBID 30 12/05/20 Rx Atorvastatin Calcium 10 Mg Tablet 10 Mg PO QHS 30 12/05/20 Rx Tylenol (Acetaminophen) 325 Mg Tablet 1-2 Tab PO PRN Q4-6HRS PRN 12/03/20 Reported Multi Vitamin Daily (Multivitamin) 1 Each Tablet 1 Tab PO DAILY 30 12/03/20 Reported Anoro Ellipta 62.5-25 Mcg Inh (Umeclidinium Brm/Vilanterol Tr) 1 Each Disk.w.dev 1 Each IH DAILY 12/03/20 Reported Namenda (Memantine Hcl) 10 Mg Tablet 5 Mg PO DAILY 12/03/20 Reported Prednisone (Prednisone) 10 Mg Tablet 4 Tab PO DAILY 5 12/03/20 Reported [Oxygen] 4 L DAILY 12/03/20 Reported Duoneb 0.5-3(2.5) Mg/3 Ml (Albuterol/Ipratropium) 3 Ml Ampul.neb 3 Ml NEB QID 12/03/20 Reported Melatonin 10 Mg Tab.rapdis 1 Tab PO QHS 30 12/03/20 Reported Cyproheptadine Hcl 4 Mg Tablet 4 Mg PO DAILY 12/03/20 Reported Bupropion Xl (Bupropion Hcl) 300 Mg Tab.er.24h 300 Mg PO DAILY 12/03/20 Reported Protonix (Pantoprazole Sodium) 20 Mg Tablet.dr 40 Mg PO DAILY 12/03/20 Reported Amlodipine Besylate 5 Mg Tablet 5 Mg PO DAILY 8/31/21 Reported Lisinopril 20 Mg Tablet 1 Tab PO DAILY 12/03/20 Reported Impression . 1. Acute on chronic hypoxic and hypercapnic respiratory failure secondary to multifactorial etiologies including large left sided pneumothorax, underlying chronic obstructive pulmonary disease with exacerbation and COVID-[address] pneumonia[address] 2[address] Ab[address] CT chest with a large pneumothorax on the left side. No evidence of pulmonary embolism. She is status post chest tube placement. CT angiogram shows some residual pneumothorax and a left lower lobe atelectasis. There is evidence of emphysema. 3. History of oxygen dependent chronic obstructive pulmonary disease. 4. Abnormal D-dimer, which is a nonspecific finding. No evidence of pulmonary embolism. 5. Severe protein-calorie malnutrition. 6. Mild azotemia. 7. Leukocytosis. Chest x-ray 125 reviewed, no pneumothorax Plan . Updated 05/01 Chest tube back on wall suction, no air leak Recurrent pneumo with plan to Discussed with RN As needed BiPAP Continue current support Chest x-ray from today reviewed, repeat x-ray in the a.m. IMPRESSION: 1. Interval partial retraction of left-sided chest tube with side-port projecting over the chest wall. No appreciable pneumothorax 2. Left-sided subcutaneous emphysema, slightly more prominent extending into the neck Updated 04/30 Chest tube clamped yesterday Recurrent pneumo Place chest tube on wall suction Discussed with RN As needed BiPAP Continue current support Repeat chest x-ray in the a.m. updated LEANDRO CONSTANTINO MD May 01, 2021 11:01
[2021-05-01 11:30] VITALS: BP 132/74
--- NOTE | 2021-05-01 12:29 | NUR ---
SS following up with discharge planning. SS reviewed pt chart and discussed with pt RN. Pt is LTC resident from [place], ; fax [phone]. COVID19 positive. Pt currently requiring ten liters nasal canula. Chest tube in place. Pt on IV Decadron and IV Rocephin. Not ready. SS will continue to follow for discharge planning.
[2021-05-01] MEDS: FLUTICASONE 50MCG/NASAL SPRAY 16GM BOTTLE. NS SCH (13:08)
[2021-05-01] MEDS: SODIUM CHLORIDE 0.65% NASAL SPRAY 45ML BOTTLE. NS PRN ×2 (13:08→17:21)
[2021-05-01 15:00] VITALS: BP 136/76
--- NOTE | 2021-05-01 18:23 | NUR ---
Assumed care of patient from VAIBHAV Matta. Agree with previous nurse assessment. Will continue to monitor.
[2021-05-01 19:34] VITALS: BP 137/72
[2021-05-01] MEDS: ATORVASTATIN CALCIUM 10 MG TABLET. PO SCH (21:41)
[2021-05-01 23:01] VITALS: BP 145/74
--- NOTE | 2021-05-02 01:42 | PN ---
DATE: 05/01/2021 LOCATION: She is in room 658. SUBJECTIVE: This 70-year-old female remains hospitalized with acute hypoxic respiratory failure due to combination of bacterial pneumonia, COVID-19 pneumonia. She has developed pneumothorax and has a chest tube ongoing. She overall feels fairly decent and is looking forward to getting better and getting out of the hospital. OBJECTIVE: VITAL SIGNS: Stable. She is afebrile. GENERAL: She is awake and alert. CHEST: Reveals decreased breath sounds bilaterally. HEART: Regular rate and rhythm. ABDOMEN: Benign. EXTREMITIES: Without cyanosis, clubbing or edema. Her O2 needs are at 10 L this morning as I am seeing her. Her chest x-ray this morning shows reexpansion of the lung with putting the chest tube back on suction. ASSESSMENT: 1. Acute hypoxic respiratory failure due to left-sided bacterial pneumonia complicated by COVID-19 infection. 2. Left pneumothorax with chest tube. 3. Severe chronic obstructive pulmonary disease. PLAN: Continue supportive care. Pulmonary help appreciated. AYSE/CICI DR: Mary TID: [id number]
[2021-05-02 02:54] VITALS: BP 132/71
[2021-05-02] MEDS: IPRATROPIUM/ALBUTEROL 20/100mcg/INH INHALER. INH SCH ×3 (05:32→18:00)
[2021-05-02] MEDS: PANTOPRAZOLE 40 MG TABLET.DR. PO SCH (05:32)
[2021-05-02] MEDS: HEPARIN for SUB-Q USE 5,000 UNIT/ML VIAL. SQ SCH ×3 (05:34→21:05)
[2021-05-02 07:00] VITALS: BP 133/67
--- NOTE | 2021-05-02 08:56 | RAD ---
EXAM: XR CHEST 1V 05/02/2021 8:18 AM CLINICAL INDICATION: Pneumothorax COMPARISON: Chest radiograph 05/01/2021 TECHNIQUE: AP upright view of the chest FINDINGS: A right internal jugular central venous catheter is unchanged with tip over the upper supe rior vena cava. A left chest tube is unchanged along the left lateral hemithorax. The heart is normal in size. Lungs are adequately expanded. Increased, small left pneumothorax seen at the apex and base . Left greater than right basilar opacities are unchanged. There is subcutaneous gas in the left ches t wall. IMPRESSION: 1. Increased, small left pneumothorax with chest tube in place. 2. Unchanged left greater than right basilar opacities. Electronically signed by: Sahra Berry MD (05/02/2021 8:54 AM) [id number]
[2021-05-02] MEDS: FLUTICASONE FUROATE 100mcg/INH ELLIPTA INHALER. INH SCH (09:00)
--- NOTE | 2021-05-02 09:54 | PDOC ---
PULMONARY PROGRESS NOTES DATE: 05/02/21 TIME: 09:49 Subjective Patient feels slightly better today NC 10L O2 with saturation of 98% CT in place with minimal drainage, no air leak Vitals Vital Signs Date Time Temp Pulse Resp B/P (MAP) Pulse Ox O2 Delivery O2 Flow Rate FiO2 05/02/21 07:00 96.7 76 20 133/67 (89) 98 Nasal Cannula 10.0 96.7 ROS: No Nausea, No Chest Pain, No Abdominal Pain, No Increase Cough General: Alert, No acute distress Lungs: Clear, Other (Subcutaneous emphysema) Cardiovascular: S1, Other Abdomen: Soft Neuro Exam: Alert Extremities: No Edema Skin: Warm Medications Active Scripts Medications Dose Route/Sig Max Daily Dose Days Date Category Budesonide 0.5 Mg/2 Ml Ampul.neb 0.5 Mg NEB RTBID 30 12/05/20 Rx Atorvastatin Calcium 10 Mg Tablet 10 Mg PO QHS 30 12/05/20 Rx Tylenol (Acetaminophen) 325 Mg Tablet 1-2 Tab PO PRN Q4-6HRS PRN 12/03/20 Reported Multi Vitamin Daily (Multivitamin) 1 Each Tablet 1 Tab PO DAILY 30 12/03/20 Reported Anoro Ellipta 62.5-25 Mcg Inh (Umeclidinium Brm/Vilanterol Tr) 1 Each Disk.w.dev 1 Each IH DAILY 12/03/20 Reported Namenda (Memantine Hcl) 10 Mg Tablet 5 Mg PO DAILY 12/03/20 Reported Prednisone (Prednisone) 10 Mg Tablet 4 Tab PO DAILY 5 12/03/20 Reported [Oxygen] 4 L DAILY 12/03/20 Reported Duoneb 0.5-3(2.5) Mg/3 Ml (Albuterol/Ipratropium) 3 Ml Ampul.neb 3 Ml NEB QID 12/03/20 Reported Melatonin 10 Mg Tab.rapdis 1 Tab PO QHS 30 12/03/20 Reported Cyproheptadine Hcl 4 Mg Tablet 4 Mg PO DAILY 12/03/20 Reported Bupropion Xl (Bupropion Hcl) 300 Mg Tab.er.24h 300 Mg PO DAILY 12/03/20 Reported Protonix (Pantoprazole Sodium) 20 Mg Tablet.dr 40 Mg PO DAILY 12/03/20 Reported Amlodipine Besylate 5 Mg Tablet 5 Mg PO DAILY 12/03/20 Reported Lisinopril 20 Mg Tablet 1 Tab PO DAILY 12/03/20 Reported Impression . 1. Acute on chronic hypoxic and hypercapnic respiratory failure secondary to multifactorial etiologies including large left sided pneumothorax, underlying chronic obstructive pulmonary disease with exacerbation and COVID-[address] pneumonia[address] 2[address] chest with a large pneumothorax on the left side. No evidence of pulmonary embolism. She is status post chest tube placement. CT angiogram shows some residual pneumothorax and a left lower lobe atelectasis. There is evidence of emphysema. 3. History of oxygen dependent chronic obstructive pulmonary disease. 4. Abnormal D-dimer, which is a nonspecific finding. No evidence of pulmonary embolism. 5. Severe protein-calorie malnutrition. 6. Mild azotemia. 7. Leukocytosis. Chest x-ray 125 reviewed, no pneumothorax Plan . Updated 05/02 CT reposition, new dressing applied, discussed with RN Continue current support Chest tube to wall suction, no air leak BiPAP as needed Discussed with RN Chest x-ray reviewed MPRESSION: 1. Increased, small left pneumothorax with chest tube in place. 2. Unchanged left greater than right basilar opacities. LEANDRO CONSTANTINO MD May 02, 2021 09:54
[2021-05-02] MEDS: FLUTICASONE 50MCG/NASAL SPRAY 16GM BOTTLE. NS SCH (09:59)
[2021-05-02] MEDS: buPROPion XL 150 MG TAB.ER.24H. PO SCH (09:59)
[2021-05-02] MEDS: DEXAMETHASONE SOD PHOS 4 MG/ML VIAL IVP SCH (10:03)
[2021-05-02] MEDS: ASPIRIN ENTERIC COATED 81 MG TABLET.DR. PO SCH (10:03)
[2021-05-02] MEDS: cefTRIAXone IV Push 1 GM VIAL. IVP SCH (10:04)
[2021-05-02] MEDS: LACTOBACILLUS RHAMNOSUS GG 1 CAPSULE. PO SCH ×2 (10:05→21:04)
[2021-05-02] MEDS: LISINOPRIL 20 MG TABLET PO SCH (10:06)
[2021-05-02] MEDS: METOPROLOL TART IMMED RELEASE 25 MG TABLET. PO SCH ×2 (10:06→21:04)
[2021-05-02] MEDS: MEMANTINE 5 MG TABLET. PO SCH (10:07)
[2021-05-02 11:00] VITALS: BP 138/73
--- NOTE | 2021-05-02 11:11 | PN ---
DATE: 05/02/2021 DAILY PROGRESS NOTE LOCATION: She is in room 658. SUBJECTIVE: This 70-year-old female remains hospitalized with acute hypoxic respiratory failure due to pneumonia and is COVID positive. She also has a left pneumothorax and severe underlying COPD. She remains on chest tube to wall suction with no air leak. This morning states she feels somewhat better than yesterday. OBJECTIVE: VITAL SIGNS: Stable. She is afebrile. GENERAL: She is awake and alert. CHEST: Decreased breath sounds bilaterally. HEART: Regular rate and rhythm. ABDOMEN: Benign. O2 is at 10 liters per nasal cannula. ASSESSMENT: 1. Acute hypoxic respiratory failure as described above. 2. Left pneumothorax. PLAN: Continue present supportive care. Hopefully, I can get resolution of pneumothorax and at that point, I do believe her oxygen needs would decrease that she has been as well as 7 liters since admission. WEI DR: Mary TID: [id number]
--- NOTE | 2021-05-02 12:48 | NUR ---
SS following up with discharge planning. SS reviewed pt chart and discussed with pt RN. Pt is LTC resident from [place], ; fax [phone]. COVID19 positive. Pt currently requiring ten liters nasal canula. Chest tube in place. Pt on IV Decadron and IV Rocephin. Not ready. SS will continue to follow for discharge planning.
[2021-05-02 15:00] VITALS: BP 132/61
[2021-05-02] MEDS: HYDROcodone/APAP 5/325MG 1 TAB TABLET PO PRN ×2 (15:23→21:05)
[2021-05-02] MEDS: BENZONATATE 100 MG CAPSULE. PO SCH ×2 (15:23→21:04)
[2021-05-02 19:05] VITALS: BP 126/64
[2021-05-02] MEDS: ATORVASTATIN CALCIUM 10 MG TABLET. PO SCH (21:04)
[2021-05-02 23:25] VITALS: BP 117/56
[2021-05-03 03:50] VITALS: BP 142/67
[2021-05-03] MEDS: IPRATROPIUM/ALBUTEROL 20/100mcg/INH INHALER. INH SCH ×4 (06:00→18:00)
[2021-05-03] MEDS: HEPARIN for SUB-Q USE 5,000 UNIT/ML VIAL. SQ SCH ×3 (06:41→21:50)
[2021-05-03 07:00] VITALS: BP 161/77
[2021-05-03] MEDS: BENZONATATE 100 MG CAPSULE. PO SCH ×3 (08:53→20:28)
[2021-05-03] MEDS: PANTOPRAZOLE 40 MG TABLET.DR. PO SCH (08:53)
[2021-05-03] MEDS: ASPIRIN ENTERIC COATED 81 MG TABLET.DR. PO SCH (08:53)
[2021-05-03] MEDS: buPROPion XL 150 MG TAB.ER.24H. PO SCH (08:53)
[2021-05-03] MEDS: MEMANTINE 5 MG TABLET. PO SCH (08:53)
[2021-05-03] MEDS: LACTOBACILLUS RHAMNOSUS GG 1 CAPSULE. PO SCH ×2 (08:53→20:29)
[2021-05-03] MEDS: DEXAMETHASONE SOD PHOS 4 MG/ML VIAL IVP SCH (08:54)
[2021-05-03] MEDS: cefTRIAXone IV Push 1 GM VIAL. IVP SCH (08:56)
[2021-05-03] MEDS: METOPROLOL TART IMMED RELEASE 25 MG TABLET. PO SCH ×2 (08:57→20:29)
[2021-05-03] MEDS: LISINOPRIL 20 MG TABLET PO SCH (08:58)
[2021-05-03] MEDS: FLUTICASONE FUROATE 100mcg/INH ELLIPTA INHALER. INH SCH (08:58)
[2021-05-03] MEDS: FLUTICASONE 50MCG/NASAL SPRAY 16GM BOTTLE. NS SCH (08:58)
--- NOTE | 2021-05-03 09:58 | PDOC ---
PULMONARY PROGRESS NOTES DATE: 05/03/21 TIME: 09:54 Subjective Patient resting comfortable this morning, currently on 5L NC Chest tube to wall suction with small output Awaiting CXR results this morning Vitals Vital Signs Date Time Temp Pulse Resp B/P (MAP) Pulse Ox O2 Delivery O2 Flow Rate FiO2 05/03/21 08:58 74 161/77 05/03/21 07:00 98.1 20 98 Nasal Cannula 10.0 98.1 ROS: No Nausea, No Chest Pain, No Abdominal Pain, No Increase Cough General: Alert, No acute distress Lungs: Clear, Other (Subcutaneous emphysema) Cardiovascular: S1, Other Abdomen: Soft Neuro Exam: Alert Extremities: No Edema Skin: Warm Medications Active Scripts Medications Dose Route/Sig Max Daily Dose Days Date Category Budesonide 0.5 Mg/2 Ml Ampul.neb 0.5 Mg NEB RTBID 30 12/05/20 Rx Atorvastatin Calcium 10 Mg Tablet 10 Mg PO QHS 30 12/05/20 Rx Tylenol (Acetaminophen) 325 Mg Tablet 1-2 Tab PO PRN Q4-6HRS PRN 12/03/20 Reported Multi Vitamin Daily (Multivitamin) 1 Each Tablet 1 Tab PO DAILY 30 12/03/20 Reported Anoro Ellipta 62.5-25 Mcg Inh (Umeclidinium Brm/Vilanterol Tr) 1 Each Disk.w.dev 1 Each IH DAILY 12/03/20 Reported Namenda (Memantine Hcl) 10 Mg Tablet 5 Mg PO DAILY 12/03/20 Reported Prednisone (Prednisone) 10 Mg Tablet 4 Tab PO DAILY 5 12/03/20 Reported [Oxygen] 4 L DAILY 12/03/20 Reported Duoneb 0.5-3(2.5) Mg/3 Ml (Albuterol/Ipratropium) 3 Ml Ampul.neb 3 Ml NEB QID 12/03/20 Reported Melatonin 10 Mg Tab.rapdis 1 Tab PO QHS 30 12/03/20 Reported Cyproheptadine Hcl 4 Mg Tablet 4 Mg PO DAILY 12/03/20 Reported Bupropion Xl (Bupropion Hcl) 300 Mg Tab.er.24h 300 Mg PO DAILY 12/03/20 Reported Protonix (Pantoprazole Sodium) 20 Mg Tablet.dr 40 Mg PO DAILY 12/03/20 Reported Amlodipine Besylate 5 Mg Tablet 5 Mg PO DAILY 12/03/20 Reported Lisinopril 20 Mg Tablet 1 Tab PO DAILY 12/03/20 Reported Impression . 1. Acute on chronic hypoxic and hypercapnic respiratory failure secondary to multifactorial etiologies including large left sided pneumothorax, underlying chronic obstructive pulmonary disease with exacerbation and COVID-19 viral pneumonia[address] 2[address] chest with a large pneumothorax on the left side. No evidence of pulmonary embolism. She is status post chest tube placement. CT angiogram shows some residual pneumothorax and a left lower lobe atelectasis. There is evidence of emphysema. 3. History of oxygen dependent chronic obstructive pulmonary disease. 4. Abnormal D-dimer, which is a nonspecific finding. No evidence of pulmonary embolism. 5. Severe protein-calorie malnutrition. 6. Mild azotemia. 7. Leukocytosis. Chest x-ray 125 reviewed, no pneumothorax Plan . Updated 05/03 Reviewed chest x-ray, Almost completely up, will proceed with pleurodesis next 24 to 48 hours Continue current support Chest tube to wall suction, no air leak Pending CXR this morning, will change to water seal if improved Discussed with RN BiPAP PRN Updated 05/02 CT reposition, new dressing applied, discussed with RN Continue current support Chest tube to wall suction, no air leak BiPAP as needed Discussed with RN Chest x-ray reviewed MPRESSION: 1. Increased, small left pneumothorax with chest tube in place. 2. Unchanged left greater than right basilar opacities. LEANDRO CONSTANTINO MD May 03, 2021 09:58
--- NOTE | 2021-05-03 10:46 | RAD ---
EXAM: Chest, single view. HISTORY: Pneumothorax. COMPARISON: 05/02/2021 FINDINGS: A frontal view of the chest is obtained. There is a stable tiny left pneumothorax and left lateral thoracostomy tube. There is slight decreased left chest wall soft tissue emphysema. There is stable pneumomediastinum. There is emphysema with bilateral lower lobe atelectasis or infiltrate and small pleural effusions. The heart is normal in size. There is a right internal jugular catheter with the tip overlying the superior vena cava. IMPRESSION: 1. Stable small left pneumothorax and left thoracostomy tube. There is decreased left chest wall soft tissue emphysema. 2. Stable pneumomediastinum. 3. Stable small pleural effusions and bilateral lower lobe infiltrate or atelectasis. 4. Emphysema. Electronically signed by: Anu Tyson MD (05/03/2021 10:43 AM) [facility]
[2021-05-03 11:00] VITALS: BP 141/72
--- NOTE | 2021-05-03 13:37 | PN ---
DATE: 05/03/2021 LOCATION: She is in room 658. SUBJECTIVE: This 70-year-old female remains hospitalized with acute hypoxic respiratory failure due to pneumonia and COVID-19. She has severe underlying COPD. She has developed a left pneumothorax and has ongoing chest tube treatment. OBJECTIVE: VITAL SIGNS: Stable. She is afebrile. GENERAL: She is awake, alert. CHEST: Decreased breath sounds bilaterally. HEART: Regular rate and rhythm. ABDOMEN: Benign. O2 remains at 10 liters per nasal cannula and chest tube remains to suction. ASSESSMENT: 1. Acute hypoxic respiratory failure. 2. Left pneumothorax. PLAN: Continue present supportive care. Once resolution of the pneumothorax, I believe her oxygen is to decrease. She is considering a move in the middle of all this to a different assisted living out at [facility]. ROLAN/CEE DR: Mary TID: [id number]
--- NOTE | 2021-05-03 14:47 | PDOC ---
Date of Service: DATE: 05/03/21 TIME: 14:41 Progress Note: Subjective: No new issues. Physical Exam HEENT: Neck Supple W Full Motion Chest: Symmetric LUNGS: Other (diminished, left chest tube) Heart: RRR (SR/ST) Abdomen: Soft N/T Extremities: No Edema Neurology: alert, oriented, follow commands Assessment Assessment 1. Acute on chronic respiratory failure secondary to COVID PNA, pneumothorax. s/p chest tube placement. off BiPAP 2. Mild troponin elevation; high sensitivity trop peak 240. Most probable type II, demand ischemia in setting of above. Echo 12/24 with preserved LV systolic function 3. Hypertension; controlled overall 4. AECOPD with chronic O2 5. ZACK with CPAP 6. Hyperlipidemia; statin Recommendations 1. Continue asa, metoprolol, lisinopril, amlodipine and statin. Supportive care. Plan for outpt ischemic evaluation. Thanks -Continue pulmonary toilet. - Justifications for Admission Other Justification JACKY VELÁZQUEZ MD May 03, 2021 14:47
[2021-05-03 14:56] VITALS: BP 131/61
[2021-05-03 20:08] VITALS: BP 126/63
[2021-05-03] MEDS: ATORVASTATIN CALCIUM 10 MG TABLET. PO SCH (20:29)
[2021-05-03 23:31] VITALS: BP 169/76
[2021-05-04 02:57] VITALS: BP 142/69
[2021-05-04] MEDS: IPRATROPIUM/ALBUTEROL 20/100mcg/INH INHALER. INH SCH ×4 (05:15→18:00)
[2021-05-04] MEDS: HEPARIN for SUB-Q USE 5,000 UNIT/ML VIAL. SQ SCH ×3 (05:16→20:22)
[2021-05-04 07:00] VITALS: BP 168/83
[2021-05-04] MEDS ORDERED: MORPHINE SULFATE 2 MG/ML INJ. IM STA (08:50)
[2021-05-04] MEDS ORDERED: MORPHINE SULFATE 2 MG/ML INJ. IVP STA (08:52)
--- NOTE | 2021-05-04 08:54 | RAD ---
EXAM: XR CHEST 1V 05/04/2021 7:18 AM CLINICAL INDICATION: Pneumothorax COMPARISON: Chest radiograph 05/03/2021 TECHNIQUE: AP upright view of the chest FINDINGS: A left lateral chest tube is unchanged. The right IJ central venous catheter is unchanged w ith tip projecting over the superior vena cava. The heart is normal in size. There is no definite michael nge in the small left apical pneumothorax seen at the apex and base. Mild bibasilar opacities and sma ll left pleural effusion are unchanged. IMPRESSION: 1. Unchanged small left pneumothorax with chest tube in place. 2. Unchanged bibasilar opacities and small left pleural effusion. Electronically signed by: Sahra Berry MD (05/04/2021 8:51 AM) [id number]
[2021-05-04] MEDS: FLUTICASONE 50MCG/NASAL SPRAY 16GM BOTTLE. NS SCH (09:00)
[2021-05-04] MEDS ORDERED: DEXTROSE 50% IV ONE (09:00)
[2021-05-04] MEDS ORDERED: TOTAL VOLUME IV ONE (09:00)
[2021-05-04] MEDS: FLUTICASONE FUROATE 100mcg/INH ELLIPTA INHALER. INH SCH (09:00)
[2021-05-04] MEDS: ASPIRIN ENTERIC COATED 81 MG TABLET.DR. PO SCH (09:15)
[2021-05-04] MEDS: MEMANTINE 5 MG TABLET. PO SCH (09:15)
[2021-05-04] MEDS: LACTOBACILLUS RHAMNOSUS GG 1 CAPSULE. PO SCH ×2 (09:15→20:19)
[2021-05-04] MEDS: PANTOPRAZOLE 40 MG TABLET.DR. PO SCH (09:16)
[2021-05-04] MEDS: METOPROLOL TART IMMED RELEASE 25 MG TABLET. PO SCH ×2 (09:16→20:20)
[2021-05-04] MEDS: BENZONATATE 100 MG CAPSULE. PO SCH ×3 (09:16→20:19)
[2021-05-04] MEDS: LISINOPRIL 20 MG TABLET PO SCH (09:17)
[2021-05-04] MEDS: DEXAMETHASONE SOD PHOS 4 MG/ML VIAL IVP SCH (09:19)
[2021-05-04] MEDS: buPROPion XL 150 MG TAB.ER.24H. PO SCH (09:29)
--- NOTE | 2021-05-04 09:38 | PDOC ---
PULMONARY PROGRESS NOTES DATE: 05/04/21 TIME: 09:37 Subjective Short of air, currently on nasal cannula oxygen Vitals Vital Signs Date Time Temp Pulse Resp B/P (MAP) Pulse Ox O2 Delivery O2 Flow Rate FiO2 05/04/21 09:17 82 168/83 05/04/21 09:08 86 Nasal Cannula 6.0 05/04/21 07:00 96.0 16 96.0 ROS: No Nausea, No Chest Pain, No Abdominal Pain, No Increase Cough General: Alert, No acute distress Lungs: Clear, Other (Subcutaneous emphysema) Cardiovascular: S1, Other Abdomen: Soft Neuro Exam: Alert Extremities: No Edema Skin: Warm Medications Active Scripts Medications Dose Route/Sig Max Daily Dose Days Date Category Budesonide 0.5 Mg/2 Ml Ampul.neb 0.5 Mg NEB RTBID 30 12/05/20 Rx Atorvastatin Calcium 10 Mg Tablet 10 Mg PO QHS 30 12/05/20 Rx Tylenol (Acetaminophen) 325 Mg Tablet 1-2 Tab PO PRN Q4-6HRS PRN 12/03/20 Reported Multi Vitamin Daily (Multivitamin) 1 Each Tablet 1 Tab PO DAILY 30 12/03/20 Reported Anoro Ellipta 62.5-25 Mcg Inh (Umeclidinium Brm/Vilanterol Tr) 1 Each Disk.w.dev 1 Each IH DAILY 12/03/20 Reported Namenda (Memantine Hcl) 10 Mg Tablet 5 Mg PO DAILY 12/03/20 Reported Prednisone (Prednisone) 10 Mg Tablet 4 Tab PO DAILY 5 12/03/20 Reported [Oxygen] 4 L DAILY 12/03/20 Reported Duoneb 0.5-3(2.5) Mg/3 Ml (Albuterol/Ipratropium) 3 Ml Ampul.neb 3 Ml NEB QID 12/03/20 Reported Melatonin 10 Mg Tab.rapdis 1 Tab PO QHS 30 12/03/20 Reported Cyproheptadine Hcl 4 Mg Tablet 4 Mg PO DAILY 12/03/20 Reported Bupropion Xl (Bupropion Hcl) 300 Mg Tab.er.24h 300 Mg PO DAILY 12/03/20 Reported Protonix (Pantoprazole Sodium) 20 Mg Tablet.dr 40 Mg PO DAILY 12/03/20 Reported Amlodipine Besylate 5 Mg Tablet 5 Mg PO DAILY 12/03/20 Reported Lisinopril 20 Mg Tablet 1 Tab PO DAILY 12/03/20 Reported Impression . 1. Acute on chronic hypoxic and hypercapnic respiratory failure secondary to multifactorial etiologies including large left sided pneumothorax, underlying chronic obstructive pulmonary disease with exacerbation and COVID-19 viral pneumonia. 2[address] CT chest with a large pneumothorax on the left side. No evidence of pulmonary embolism. She is status post chest tube placement. CT angiogram shows some residual pneumothorax and a left lower lobe atelectasis. There is evidence of emphysema. 3. History of oxygen dependent chronic obstructive pulmonary disease. 4. Abnormal D-dimer, which is a nonspecific finding. No evidence of pulmonary embolism. 5. Severe protein-calorie malnutrition. 6. Mild azotemia. 7. Leukocytosis. Chest x-ray 125 reviewed, no pneumothorax Plan . Updated 05/04 Chest x-ray reviewed Small pneumothorax No significant air leak on chest tube We will proceed with thoracentesis with D50 As needed BiPAP LEANDRO CONSTANTINO MD May 04, 2021 09:38
[2021-05-04 10:25] VITALS: BP 138/79
[2021-05-04] MEDS: CELECOXIB 100 MG CAPSULE. PO SCH ×2 (11:30→20:20)
[2021-05-04] MEDS: HYDROcodone/APAP 5/325MG 1 TAB TABLET PO PRN ×2 (13:21→20:20)
[2021-05-04 15:00] VITALS: BP 120/64
[2021-05-04 19:15] VITALS: BP 127/59
[2021-05-04] MEDS: ATORVASTATIN CALCIUM 10 MG TABLET. PO SCH (20:19)
[2021-05-04 22:39] VITALS: BP 113/73
--- NOTE | 2021-05-04 22:53 | PN ---
DATE: 05/04/2021 DAILY PROGRESS NOTE LOCATION: She is in room 658. SUBJECTIVE: This 70-year-old female remains hospitalized with acute hypoxic respiratory failure due to pneumonia, COVID-19. She has severe underlying COPD. She has developed a left pneumothorax. She has ongoing chest tube to suction. Still has a small pneumo on chest x-ray this morning and is planning on getting thoracocentesis from Pulmonary to try to close it further if possible. She complains more of left sided chest pain this morning than she has and I am going to add Celebrex to see if this will help in any way. OBJECTIVE: VITAL SIGNS: Stable. She is afebrile. GENERAL: She is awake and alert. Oxygen is down to 6 liters per nasal cannula this morning and chest tube remains to suction without leak. CHEST: Decreased breath sounds bilaterally. HEART: Regular rate and rhythm. ABDOMEN: Benign. ASSESSMENT: 1. Acute hypoxic respiratory failure. 2. COVID-19 infection. 3. Pneumonia. 4. Left pneumothorax. PLAN: Continue supportive care. Celebrex for pain and hopefully thoracocentesis will help with further sealing of her pneumothorax. JORGE/MARYANNE DR: Mary TID: [id number]
[2021-05-05] MEDS: IPRATROPIUM/ALBUTEROL 20/100mcg/INH INHALER. INH SCH ×5 (00:23→23:09)
[2021-05-05 02:58] VITALS: BP 135/76
[2021-05-05] MEDS: HEPARIN for SUB-Q USE 5,000 UNIT/ML VIAL. SQ SCH ×3 (05:26→21:08)
[2021-05-05 07:00] VITALS: BP 130/67
--- NOTE | 2021-05-05 08:07 | RAD ---
AP chest. HISTORY: Pneumothorax AP view was taken of the chest. Comparison is made with a study from one day ago. There is atelectasi s in both lung bases more on the left than on the right. There is a small left pleural effusion. Righ t central line is unchanged. A pneumothorax is not identified on today's study. Left chest tube is un changed. No other change is noted. IMPRESSION: 1. A pneumothorax is not identified on today's exam. 2. No other change. Electronically signed by: Jv Mars MD (05/05/2021 8:04 AM) [id number]
--- NOTE | 2021-05-05 08:47 | PDOC ---
PULMONARY PROGRESS NOTES DATE: 05/05/21 TIME: 08:41 Subjective Resting comfortably, feeling slightly better than yesterday, no worse 6L NC CT to wall suction, small air leak noted Vitals Vital Signs Date Time Temp Pulse Resp B/P (MAP) Pulse Ox O2 Delivery O2 Flow Rate FiO2 05/05/21 02:58 97.9 78 16 135/76 (95) 95 Nasal Cannula 6.0 97.9 ROS: No Nausea, No Chest Pain, No Abdominal Pain, No Increase Cough General: Alert, No acute distress Lungs: Clear, Other (Subcutaneous emphysema) Cardiovascular: S1, Other Abdomen: Soft Neuro Exam: Alert Extremities: No Edema Skin: Warm Medications Active Scripts Medications Dose Route/Sig Max Daily Dose Days Date Category Budesonide 0.5 Mg/2 Ml Ampul.neb 0.5 Mg NEB RTBID 30 12/05/20 Rx Atorvastatin Calcium 10 Mg Tablet 10 Mg PO QHS 30 12/05/20 Rx Tylenol (Acetaminophen) 325 Mg Tablet 1-2 Tab PO PRN Q4-6HRS PRN 12/03/20 Reported Multi Vitamin Daily (Multivitamin) 1 Each Tablet 1 Tab PO DAILY 30 12/03/20 Reported Anoro Ellipta 62.5-25 Mcg Inh (Umeclidinium Brm/Vilanterol Tr) 1 Each Disk.w.dev 1 Each IH DAILY 12/03/20 Reported Namenda (Memantine Hcl) 10 Mg Tablet 5 Mg PO DAILY 12/03/20 Reported Prednisone (Prednisone) 10 Mg Tablet 4 Tab PO DAILY 5 12/03/20 Reported [Oxygen] 4 L DAILY 12/03/20 Reported Duoneb 0.5-3(2.5) Mg/3 Ml (Albuterol/Ipratropium) 3 Ml Ampul.neb 3 Ml NEB QID 12/03/20 Reported Melatonin 10 Mg Tab.rapdis 1 Tab PO QHS 30 12/03/20 Reported Cyproheptadine Hcl 4 Mg Tablet 4 Mg PO DAILY 12/03/20 Reported Bupropion Xl (Bupropion Hcl) 300 Mg Tab.er.24h 300 Mg PO DAILY 12/03/20 Reported Protonix (Pantoprazole Sodium) 20 Mg Tablet.dr 40 Mg PO DAILY 12/03/20 Reported Amlodipine Besylate 5 Mg Tablet 5 Mg PO DAILY 12/03/20 Reported Lisinopril 20 Mg Tablet 1 Tab PO DAILY 12/03/20 Reported Impression . 1. Acute on chronic hypoxic and hypercapnic respiratory failure secondary to multifactorial etiologies including large left sided pneumothorax, underlying chronic obstructive pulmonary disease with exacerbation and COVID-[address] pneumonia[address] 2[address] Abnormal CT chest with a large pneumothorax on the left side. No evidence of pulmonary embolism. She is status post chest tube placement. CT angiogram shows some residual pneumothorax and a left lower lobe atelectasis. There is evidence of emphysema. 3. History of oxygen dependent chronic obstructive pulmonary disease. 4. Abnormal D-dimer, which is a nonspecific finding. No evidence of pulmonary embolism. 5. Severe protein-calorie malnutrition. 6. Mild azotemia. 7. Leukocytosis. Chest x-ray 125 reviewed, no pneumothorax Plan . Updated 05/05 Discontinued wall suction earlier today, repeat chest x-ray reviewed, will clamp tube, repeat x-ray in the morning Continue current support Chest X-ray reviewed IMPRESSION: 1. A pneumothorax is not identified on today's exam. 2. No other change. Updated 05/04 Chest x-ray reviewed Small pneumothorax No significant air leak on chest tube We will proceed with thoracentesis with D50 As needed BiPAP LEANDRO CONSTANTINO MD May 05, 2021 08:47
[2021-05-05] MEDS: FLUTICASONE FUROATE 100mcg/INH ELLIPTA INHALER. INH SCH (09:00)
[2021-05-05] MEDS: FLUTICASONE 50MCG/NASAL SPRAY 16GM BOTTLE. NS SCH (09:00)
[2021-05-05] MEDS: CELECOXIB 100 MG CAPSULE. PO SCH ×2 (09:22→21:04)
[2021-05-05] MEDS: buPROPion XL 150 MG TAB.ER.24H. PO SCH (09:22)
[2021-05-05] MEDS: LACTOBACILLUS RHAMNOSUS GG 1 CAPSULE. PO SCH ×2 (09:22→21:04)
[2021-05-05] MEDS: MEMANTINE 5 MG TABLET. PO SCH (09:22)
[2021-05-05] MEDS: ASPIRIN ENTERIC COATED 81 MG TABLET.DR. PO SCH (09:22)
[2021-05-05] MEDS: METOPROLOL TART IMMED RELEASE 25 MG TABLET. PO SCH ×2 (09:23→21:04)
[2021-05-05] MEDS: BENZONATATE 100 MG CAPSULE. PO SCH ×3 (09:23→21:08)
[2021-05-05] MEDS: PANTOPRAZOLE 40 MG TABLET.DR. PO SCH (09:23)
[2021-05-05] MEDS: LISINOPRIL 20 MG TABLET PO SCH (09:23)
[2021-05-05] MEDS: HYDROcodone/APAP 5/325MG 1 TAB TABLET PO PRN ×2 (09:24→21:08)
[2021-05-05] MEDS: DEXAMETHASONE SOD PHOS 4 MG/ML VIAL IVP SCH (09:24)
--- NOTE | 2021-05-05 10:42 | PDOC ---
HERMAN PARK APRN 05/05/21 1042: CARDIO Progress Notes Date and Time Date of Service 05/05/21 Time of Evaluation 1040 Subjective Subjective: No Chest Pain, No Palpitations, No Dizziness, Other (not more SOA) Vitals Vitals Vital Signs Date Time Temp Pulse Resp B/P (MAP) Pulse Ox O2 Delivery O2 Flow Rate FiO2 05/05/21 10:00 96 Nasal Cannula 6.0 05/05/21 09:23 78 130/67 05/05/21 07:00 98.0 20 98.0 Weight Weight [ ] Input and Output Intake and Output Intake and Output 05/05/21 07:00 Intake Total 150 ml Output Total 260 ml Balance -110 ml Intake Oral 150 ml Chest Tube Drainage Total 260 ml # Voids 4 Microbiology Micro Microbiology 04/26/21 Urine Culture - Final, Complete 04/26/21 Blood Culture - Final, Complete NO GROWTH AFTER 5 DAYS Physical Exam HEENT: Neck Supple W Full Motion Chest: Symmetric LUNGS: Other (diminished, left chest tube) Heart: RRR (SR) Abdomen: Soft N/T Extremities: No Edema Neurology: alert, follow commands Assessment Assessment 1. Acute on chronic respiratory failure secondary to COVID PNA, pneumothorax. s/p chest tube placement. off BiPAP 2. Mild troponin elevation; high sensitivity trop peak 240. Most probable type II, demand ischemia in setting of above. Echo 12/24 with preserved LV systolic f unction 3. Hypertension; controlled 4. AECOPD with chronic O2 5. ZACK with CPAP 6. Hyperlipidemia; statin Recommendations Ongoing pulmonary optimization, treatment of COVID Am labs ASA, statin therapy Consider outpatient ischemic evaluation Supportive care Justicifation of Admission Dx: Justifications for Admission: Justification of Admission Dx: Yes JACKY VELÁZQUEZ MD 05/05/21 1722: CARDIO Progress Notes Plan Plan The patient was seen and interviewed as well as examined at the bedside. The chart was reviewed. The case was discussed. Agree with the plan of care. HERMAN PARK APRN May 05, 2021 10:42 JACKY VELÁZQUEZ MD May 05, 2021 17:22
[2021-05-05 11:00] VITALS: BP 137/74
--- NOTE | 2021-05-05 13:18 | NUR ---
SS following up with discharge planning. SS reviewed pt chart and discussed with pt RN. Pt is LTC resident from [place], ; fax [phone]. COVID19 positive. Pt currently requiring oxygen at six liters nasal canula. Chest tube in place. Pt on IV Decadron. Possible Thoracentesis. Not ready. SS will continue to follow for discharge planning.
[2021-05-05 15:42] VITALS: BP 136/90
--- NOTE | 2021-05-05 17:10 | RAD ---
EXAM: XR CHEST 1V 05/05/2021 4:00 PM CLINICAL INDICATION: Pneumothorax COMPARISON: Chest radiograph 05/05/2021 TECHNIQUE: AP upright view of the chest FINDINGS: A right IJ central venous catheter tip projects over the superior vena cava. A left latera l chest tube is unchanged. The small left pneumothorax has mildly increased at the base and slightly at the apex. Bibasilar opacities are unchanged. Cardiomediastinal silhouette is stable. IMPRESSION: 1. Mildly increased, small left pneumothorax, greatest at the left lung base. Left chest tube remains in place. 2. Unchanged mild bibasilar opacities. Electronically signed by: Sahra Berry MD (05/05/2021 5:07 PM) [id number]
[2021-05-05 19:53] VITALS: BP 142/69
[2021-05-05] MEDS: ATORVASTATIN CALCIUM 10 MG TABLET. PO SCH (21:04)
[2021-05-05 23:02] VITALS: BP 132/70
--- NOTE | 2021-05-06 00:22 | PN ---
DATE: 05/05/2021 DAILY PROGRESS NOTE LOCATION: She is in room 658. SUBJECTIVE: This 70-year-old female remains hospitalized with acute hypoxic respiratory failure due to COVID-19 pneumonia. She has severe underlying COPD. She has developed a left pneumothorax and has an ongoing chest tube to suction. This morning's chest x-ray shows no evidence of the pneumothorax and she did receive D50 thoracentesis yesterday to try to resolve the problem per Pulmonary. She is resting comfortably as I see her. OBJECTIVE: VITAL SIGNS: Stable. She is afebrile. CHEST: Reveals decreased breath sounds. HEART: Regular rate and rhythm. ABDOMEN: Benign. ASSESSMENT: 1. Acute hypoxic respiratory failure. 2. COVID-19 infection. 3. Pneumonia. 4. Left pneumothorax. PLAN: Continue present care with evidence of improvement and O2 needs down to 6 liters from 15 she was present prior requiring. ROLAN/ELROY DR: Mary TID: [id number]
[2021-05-06 02:59] VITALS: BP 144/75
[2021-05-06] MEDS: HEPARIN for SUB-Q USE 5,000 UNIT/ML VIAL. SQ SCH ×3 (05:43→22:03)
[2021-05-06] MEDS: IPRATROPIUM/ALBUTEROL 20/100mcg/INH INHALER. INH SCH ×4 (05:43→22:00)
[2021-05-06] MEDS: PANTOPRAZOLE 40 MG TABLET.DR. PO SCH (05:48)
[2021-05-06 06:10] LABS: BASO % 0 % (0-3); EOS % 0 % (0-3); HEMATOCRIT 40.8 % (36.0-47.0); LYMPH # 0.9 x10^3/uL (1.0-4.8); LYMPH % 4 % (24-48); MEAN CORPUSCULAR HEMOGLOBIN 27 pg (25-35); MEAN CORPUSCULAR HGB CONC 32 g/dL (31-37); MEAN CORPUSCULAR VOLUME 86 fL (79-100); MONO # 1.6 x10^3/uL (0.0-1.1); MONO % 7 % (0-9); NEUT # 18.6 x10^3/uL (1.8-7.7); NEUT % 88 % (31-73); PLATELET COUNT 271 x10^3/uL (140-400); RED BLOOD COUNT 4.75 x10^6/uL (3.50-5.40); RED CELL DISTRIBUTION WIDTH 18.9 % (11.5-14.5); WHITE BLOOD COUNT 21.1 x10^3/uL (4.0-11.0)
[2021-05-06 06:34] LABS: CALCIUM 8.9 mg/dL (8.5-10.1); CREATININE 1.3 mg/dL (0.6-1.0); GFR 40.5; MAGNESIUM 2.5 mg/dL (1.8-2.4); POTASSIUM 4.7 mmol/L (3.5-5.1)
[2021-05-06 07:00] VITALS: BP 131/64
[2021-05-06] MEDS: LACTOBACILLUS RHAMNOSUS GG 1 CAPSULE. PO SCH ×2 (08:22→22:05)
[2021-05-06] MEDS: ASPIRIN ENTERIC COATED 81 MG TABLET.DR. PO SCH (08:22)
[2021-05-06] MEDS: buPROPion XL 150 MG TAB.ER.24H. PO SCH (08:22)
[2021-05-06] MEDS: CELECOXIB 100 MG CAPSULE. PO SCH ×2 (08:22→22:01)
[2021-05-06] MEDS: MEMANTINE 5 MG TABLET. PO SCH (08:22)
[2021-05-06] MEDS: BENZONATATE 100 MG CAPSULE. PO SCH ×3 (08:22→22:01)
[2021-05-06] MEDS: DEXAMETHASONE SOD PHOS 4 MG/ML VIAL IVP SCH (08:23)
[2021-05-06] MEDS: METOPROLOL TART IMMED RELEASE 25 MG TABLET. PO SCH ×2 (08:25→22:03)
[2021-05-06] MEDS: LISINOPRIL 20 MG TABLET PO SCH (08:26)
[2021-05-06] MEDS: FLUTICASONE 50MCG/NASAL SPRAY 16GM BOTTLE. NS SCH (08:27)
[2021-05-06] MEDS: FLUTICASONE FUROATE 100mcg/INH ELLIPTA INHALER. INH SCH (08:27)
--- NOTE | 2021-05-06 10:19 | PDOC ---
PULMONARY PROGRESS NOTES DATE: 05/06/21 TIME: 10:16 Subjective Resting comfortably, feeling "pretty good" 6L NC Chest tube clamped Vitals Vital Signs Date Time Temp Pulse Resp B/P (MAP) Pulse Ox O2 Delivery O2 Flow Rate FiO2 05/06/21 08:26 77 144/75 05/06/21 08:00 Nasal Cannula 6.0 05/06/21 07:00 97.1 18 99 97.1 ROS: No Nausea, No Chest Pain, No Abdominal Pain, No Increase Cough General: Alert, No acute distress Lungs: Clear, Other (Subcutaneous emphysema) Cardiovascular: S1, Other Abdomen: Soft Neuro Exam: Alert Extremities: No Edema Skin: Warm Labs Laboratory Tests Test 05/06/21 06:07 White Blood Count 21.1 x10^3/uL (4.0-11.0) Red Blood Count 4.75 x10^6/uL (3.50-5.40) Hemoglobin 13.0 g/dL (12.0-15.5) Hematocrit 40.8 % (36.0-47.0) Mean Corpuscular Volume 86 fL (79-100) Mean Corpuscular Hemoglobin 27 pg (25-35) Mean Corpuscular Hemoglobin Concent 32 g/dL (31-37) Red Cell Distribution Width 18.9 % (11.5-14.5) Platelet Count 271 x10^3/uL (140-400) Neutrophils (%) (Auto) 88 % (31-73) Lymphocytes (%) (Auto) 4 % (24-48) Monocytes (%) (Auto) 7 % (0-9) Eosinophils (%) (Auto) 0 % (0-3) Basophils (%) (Auto) 0 % (0-3) Neutrophils # (Auto) 18.6 x10^3/uL (1.8-7.7) Lymphocytes # (Auto) 0.9 x10^3/uL (1.0-4.8) Monocytes # (Auto) 1.6 x10^3/uL (0.0-1.1) Eosinophils # (Auto) 0.0 x10^3/uL (0.0-0.7) Basophils # (Auto) 0.0 x10^3/uL (0.0-0.2) Sodium Level 148 mmol/L (136-145) Potassium Level 4.7 mmol/L (3.5-5.1) Chloride Level 109 mmol/L (98-107) Carbon Dioxide Level 36 mmol/L (21-32) Anion Gap 3 (6-14) Blood Urea Nitrogen 42 mg/dL (7-20) Creatinine 1.3 mg/dL (0.6-1.0) Estimated GFR (Cockcroft-Gault) 40.5 Glucose Level 389 mg/dL (70-99) Calcium Level 8.9 mg/dL (8.5-10.1) Magnesium Level 2.5 mg/dL (1.8-2.4) Laboratory Tests Test 05/06/21 06:07 White Blood Count 21.1 x10^3/uL (4.0-11.0) Red Blood Count 4.75 x10^6/uL (3.50-5.40) Hemoglobin 13.0 g/dL (12.0-15.5) Hematocrit 40.8 % (36.0-47.0) Mean Corpuscular Volume 86 fL (79-100) Mean Corpuscular Hemoglobin 27 pg (25-35) Mean Corpuscular Hemoglobin Concent 32 g/dL (31-37) Red Cell Distribution Width 18.9 % (11.5-14.5) Platelet Count 271 x10^3/uL (140-400) Neutrophils (%) (Auto) 88 % (31-73) Lymphocytes (%) (Auto) 4 % (24-48) Monocytes (%) (Auto) 7 % (0-9) Eosinophils (%) (Auto) 0 % (0-3) Basophils (%) (Auto) 0 % (0-3) Neutrophils # (Auto) 18.6 x10^3/uL (1.8-7.7) Lymphocytes # (Auto) 0.9 x10^3/uL (1.0-4.8) Monocytes # (Auto) 1.6 x10^3/uL (0.0-1.1) Eosinophils # (Auto) 0.0 x10^3/uL (0.0-0.7) Basophils # (Auto) 0.0 x10^3/uL (0.0-0.2) Sodium Level 148 mmol/L (136-145) Potassium Level 4.7 mmol/L (3.5-5.1) Chloride Level 109 mmol/L (98-107) Carbon Dioxide Level 36 mmol/L (21-32) Anion Gap 3 (6-14) Blood Urea Nitrogen 42 mg/dL (7-20) Creatinine 1.3 mg/dL (0.6-1.0) Estimated GFR (Cockcroft-Gault) 40.5 Glucose Level 389 mg/dL (70-99) Calcium Level 8.9 mg/dL (8.5-10.1) Magnesium Level 2.5 mg/dL (1.8-2.4) Medications Active Scripts Medications Dose Route/Sig Max Daily Dose Days Date Category Budesonide 0.5 Mg/2 Ml Ampul.neb 0.5 Mg NEB RTBID 30 12/05/20 Rx Atorvastatin Calcium 10 Mg Tablet 10 Mg PO QHS 30 12/05/20 Rx Tylenol (Acetaminophen) 325 Mg Tablet 1-2 Tab PO PRN Q4-6HRS PRN 12/03/20 Reported Multi Vitamin Daily (Multivitamin) 1 Each Tablet 1 Tab PO DAILY 30 12/03/20 Reported Anoro Ellipta 62.5-25 Mcg Inh (Umeclidinium Brm/Vilanterol Tr) 1 Each Disk.w.dev 1 Each IH DAILY 12/03/20 Reported Namenda (Memantine Hcl) 10 Mg Tablet 5 Mg PO DAILY 12/03/20 Reported Prednisone (Prednisone) 10 Mg Tablet 4 Tab PO DAILY 5 12/03/20 Reported [Oxygen] 4 L DAILY 12/03/20 Reported Duoneb 0.5-3(2.5) Mg/3 Ml (Albuterol/Ipratropium) 3 Ml Ampul.neb 3 Ml NEB QID 12/03/20 Reported Melatonin 10 Mg Tab.rapdis 1 Tab PO QHS 30 12/03/20 Reported Cyproheptadine Hcl 4 Mg Tablet 4 Mg PO DAILY 12/03/20 Reported Bupropion Xl (Bupropion Hcl) 300 Mg Tab.er.24h 300 Mg PO DAILY 12/03/20 Reported Protonix (Pantoprazole Sodium) 20 Mg Tablet.dr 40 Mg PO DAILY 12/03/20 Reported Amlodipine Besylate 5 Mg Tablet 5 Mg PO DAILY 12/03/20 Reported Lisinopril 20 Mg Tablet 1 Tab PO DAILY 12/03/20 Reported Impression . 1. Acute on chronic hypoxic and hypercapnic respiratory failure secondary to multifactorial etiologies including large left sided pneumothorax, underlying chronic obstructive pulmonary disease with exacerbation and COVID-19 viral pneumonia[address] 2[address]normal CT chest with a large pneumothorax on the left side. No evidence of pulmonary embolism. She is status post chest tube placement. CT angiogram shows some residual pneumothorax and a left lower lobe atelectasis. There is evidence of emphysema. 3. History of oxygen dependent chronic obstructive pulmonary disease. 4. Abnormal D-dimer, which is a nonspecific finding. No evidence of pulmonary embolism. 5. Severe protein-calorie malnutrition. 6. Mild azotemia. 7. Leukocytosis. Chest x-ray 125 reviewed, no pneumothorax Plan . Updated 05/06 Chest x-ray reviewed, no pneumothorax, some subcutaneous emphysema Chest tube clamped the past 24 hours, will unclamped, repeat chest x-ray in the a.m., if no pneumothorax, will DC chest tube Patient aware that there is a 50% chance that she may require a leak chest tube, if pneumothorax recurs Continue current O2 supplementation Labs reviewed LEANDRO CONSTANTINO MD May 06, 2021 10:19
[2021-05-06 10:24] LABS: % BANDS 2 % (0-9); % LYMPHS 6 % (24-48); % MONOS 6 % (0-10); % SEGS 86 % (35-66); NUCLEATED RBC 3
[2021-05-06 10:25] LABS: ANISOCYTOSIS SLIGHT; PLT ESTIMATE ADEQUATE (ADEQUATE)
[2021-05-06 11:00] VITALS: BP 132/67
--- NOTE | 2021-05-06 11:09 | RAD ---
EXAM: XR CHEST 1V 05/06/2021 9:56 AM CLINICAL INDICATION: Pneumothorax COMPARISON: Chest radiograph 05/05/2021 TECHNIQUE: AP upright view of the chest FINDINGS: The lateral left chest tube appears to have been advanced several centimeters. The right i nternal jugular central venous catheter is unchanged. The cardiac mediastinal silhouette is normal. T he small left pneumothorax has decreased, now with only a tiny component visible at the lung base. Th ere are slightly increased left perihilar opacities. Streaky opacities in the bases are unchanged. Th ere is increased subcutaneous gas in the left chest wall. IMPRESSION: 1. Decreased, tiny left pneumothorax with chest tube in place. 2. Increased gas in the left chest wall. 3. Slightly increased left perihilar opacities. Unchanged bibasilar opacities. Electronically signed by: Sahra Berry MD (05/06/2021 11:07 AM) [id number]
--- NOTE | 2021-05-06 12:37 | NUR ---
SS following up with discharge planning. SS reviewed pt chart and discussed with pt RN. Pt is LTC resident from [place], ; fax [phone]. COVID19 positive. Pt currently requiring oxygen at six liters nasal canula. Chest tube in place. White count elevated. Not ready. SS will continue to follow for discharge planning.
[2021-05-06] MEDS: HYDROcodone/APAP 5/325MG 1 TAB TABLET PO PRN (14:39)
[2021-05-06 15:00] VITALS: BP 124/61
[2021-05-06 19:00] VITALS: BP 142/78
[2021-05-06] MEDS: ATORVASTATIN CALCIUM 10 MG TABLET. PO SCH (22:01)
[2021-05-06 23:00] VITALS: BP 123/67
[2021-05-07 02:41] VITALS: BP 128/63
--- NOTE | 2021-05-07 02:49 | PN ---
DATE: 05/06/2021 DAILY PROGRESS NOTE LOCATION: She is in room 658. SUBJECTIVE: This 70-year-old female remains hospitalized with acute hypoxic respiratory failure due to COVID-19 pneumonia and exacerbation of her underlying COPD. She has developed a left pneumothorax other than ongoing chest tube with pulmonary monitoring of the same. O2 needs have decreased down to 6 liters and has been stable there over the last day or so. OBJECTIVE: VITAL SIGNS: Stable. She is afebrile. CHEST: Reveals decreased breath sounds. HEART: Regular rate and rhythm. ABDOMEN: Benign. LABORATORY DATA: White count, which initially decreased after admission has increased up to 21,000 this morning with a left shift. BUN is up to 42, creatinine up to 1.3, sodium 148, consistent with some probable mild dehydration. Chest x-ray shows no evidence of the pneumothorax this morning. ASSESSMENT: 1. Acute hypoxic respiratory failure. 2. COVID-19 pneumonia. 3. Severe chronic obstructive pulmonary disease. 4. Left pneumothorax. PLAN: Continue present, follow renal function, white count as I am unsure what is driving the white count unless it might have been D50 and fusion causing some pleural reaction. SEEMA/TACHO/FRED DR: SEEMA/amaya TID: [id number]
[2021-05-07] MEDS: IPRATROPIUM/ALBUTEROL 20/100mcg/INH INHALER. INH SCH ×4 (05:16→23:57)
[2021-05-07] MEDS: PANTOPRAZOLE 40 MG TABLET.DR. PO SCH (05:19)
[2021-05-07] MEDS: HEPARIN for SUB-Q USE 5,000 UNIT/ML VIAL. SQ SCH ×3 (05:19→21:47)
[2021-05-07 06:25] LABS: BASO % 0 % (0-3); EOS % 0 % (0-3); HEMATOCRIT 39.7 % (36.0-47.0); HEMOGLOBIN 12.5 g/dL (12.0-15.5); LYMPH # 0.9 x10^3/uL (1.0-4.8); LYMPH % 5 % (24-48); MEAN CORPUSCULAR HEMOGLOBIN 27 pg (25-35); MEAN CORPUSCULAR HGB CONC 31 g/dL (31-37); MEAN CORPUSCULAR VOLUME 86 fL (79-100); MONO # 1.5 x10^3/uL (0.0-1.1); MONO % 8 % (0-9); NEUT # 16.7 x10^3/uL (1.8-7.7); NEUT % 88 % (31-73); PLATELET COUNT 218 x10^3/uL (140-400); RED BLOOD COUNT 4.64 x10^6/uL (3.50-5.40); RED CELL DISTRIBUTION WIDTH 18.8 % (11.5-14.5); WHITE BLOOD COUNT 19.1 x10^3/uL (4.0-11.0)
[2021-05-07 06:29] LABS: CALCIUM 8.8 mg/dL (8.5-10.1); CREATININE 1.2 mg/dL (0.6-1.0); GFR 44.4; POTASSIUM 4.6 mmol/L (3.5-5.1)
[2021-05-07 07:00] VITALS: BP 133/77
[2021-05-07] MEDS: CELECOXIB 100 MG CAPSULE. PO SCH ×2 (08:30→20:07)
[2021-05-07] MEDS: BENZONATATE 100 MG CAPSULE. PO SCH ×3 (08:30→20:06)
[2021-05-07] MEDS: ASPIRIN ENTERIC COATED 81 MG TABLET.DR. PO SCH (08:30)
[2021-05-07] MEDS: buPROPion XL 150 MG TAB.ER.24H. PO SCH (08:30)
[2021-05-07] MEDS: LACTOBACILLUS RHAMNOSUS GG 1 CAPSULE. PO SCH ×2 (08:30→20:06)
[2021-05-07] MEDS: MEMANTINE 5 MG TABLET. PO SCH (08:30)
[2021-05-07] MEDS: LISINOPRIL 20 MG TABLET PO SCH (08:31)
[2021-05-07] MEDS: METOPROLOL TART IMMED RELEASE 25 MG TABLET. PO SCH ×2 (08:31→20:07)
[2021-05-07] MEDS: FLUTICASONE FUROATE 100mcg/INH ELLIPTA INHALER. INH SCH (08:32)
[2021-05-07] MEDS: FLUTICASONE 50MCG/NASAL SPRAY 16GM BOTTLE. NS SCH (08:32)
--- NOTE | 2021-05-07 09:28 | RAD ---
XR CHEST 1V Clinical History: Reason: PTX / Spl. Instructions: / History: Technique: AP view of the chest was obtained at 05/07/2021 8:59 AM. Comparison: None. Findings: The cardiomediastinal silhouette is normal. The pulmonary vasculature is normal. There is patchy opac ities throughout the left lung. There is moderate left chest wall subcutaneous emphysema. There is a right jugular line with its tip directed downward in the high SVC again seen and unchanged. There is a small left-sided chest tube. There is a tiny left pneumothorax. Impression: 1. Tiny left pneumothorax appears slightly larger. 2. Mild left effusion unchanged. 3. Worsening left-sided pulmonary infiltrates. Electronically signed by: Ferdinand Celaya III, MD (05/07/2021 9:25 AM) [facility]
[2021-05-07] MEDS: IV 1/2 NORMAL SALINE 1,000 ML IV SCH ×2 (10:00→23:57)
--- NOTE | 2021-05-07 10:15 | PN ---
DATE: 05/07/2021 LOCATION: She is in room 658. SUBJECTIVE: This 70-year-old female remains hospitalized with acute hypoxic respiratory failure due to COVID-19, exacerbation of COPD. She has a left pneumothorax which shows that it is slightly larger this morning, but still not big, ongoing chest tube therapy for the same. O2 is stable at 6 L per nasal cannula. OBJECTIVE: VITAL SIGNS: Stable. She is afebrile. GENERAL: She is awake and alert, feels approximately the same. CHEST: Decreased breath sounds. HEART: Regular rate and rhythm. ABDOMEN: Benign. LABORATORY DATA: White count this morning is 19,000, which is slightly lower than yesterday. BUN is up to 50 with a creatinine of 1.2 suggestive of some dehydration, although her sodium level has returned down in the upper limits of normal. I am going to start some low dose IV fluids on her to see if there is improvement of the same. There is no evidence per nursing of any GI bleeding. ASSESSMENT: 1. Acute hypoxic respiratory failure. 2. COVID-19 pneumonia. 3. Severe chronic obstructive pulmonary disease. 4. Left pneumothorax. 5. Lab evidence of probable dehydration. PLAN: Continue present. Follow renal function and white count and we will again start some IV fluids. PARAS DR: SEEMA/amaya TID: [id number]
[2021-05-07 10:48] VITALS: BP 90/52
--- NOTE | 2021-05-07 11:35 | NUR ---
SS following up with discharge planning. SS reviewed pt chart and discussed with pt RN. Pt is LTC resident from [place], ; fax [phone]. COVID19 positive. Pt currently requiring oxygen at six liters nasal canula. Chest tube to be removed today. White count now 19.1. PT/OT ordered. SS will continue to follow for discharge planning.
--- NOTE | 2021-05-07 14:24 | RAD ---
Single view chest dated 05/07/2021 2:20 PM: COMPARISON: 05/07/2021 Clinical Indication: Chest tube removal. Findings: Single upright portable exam of the chest was performed. Heart and mediastinal contours are stable. T here is a right internal jugular catheter in place, unchanged. Interval removal of left-sided chest t ube. There is some persistent subcutaneous gas along the left chest wall. Tiny left apical pneumothor ax measuring about 4 mm from the pleural edge to apical chest wall. Patchy bibasilar airspace disease with blunting of the costophrenic sulci, unchanged. Mild patchy perihilar opacity on the left, uncha nged. IMPRESSION: 1. Interval removal left-sided chest tube with tiny left apical pneumothorax. 2. Bibasilar airspace disease with suspected small pleural effusions, unchanged. 3. Subcutaneous emphysema along the left chest wall and lower left neck. Electronically signed by: Sher Tavares MD (05/07/2021 2:22 PM) [id number]
[2021-05-07 15:00] VITALS: BP 126/73
--- NOTE | 2021-05-07 16:43 | PDOC ---
Provider Note Date of Service: DATE: 05/07/21 TIME: 16:42 Provider Note Cardiology progress note: Subjective: Patient continues to feel tired and has left-sided chest wall pain from in her chest tube in place. She has had a poor appetite but is asking for some ice cream today. Given the circumstances overall she appears to be in fairly good spirits. Physical Exam HEENT: Neck Supple W Full Motion Chest: Symmetric LUNGS: Other (diminished, left chest tube) Heart: RRR (SR) Abdomen: Soft N/T Extremities: No Edema Neurology: alert, follow commands Assessment Assessment 1. Acute on chronic respiratory failure secondary to COVID PNA, pneumothorax. s/p chest tube placement. off BiPAP 2. Mild troponin elevation; high sensitivity trop peak 240. Most probable type II, demand ischemia in setting of above. Echo 12/24 with preserved LV systolic function 3. Hypertension; controlled 4. AECOPD with chronic O2 5. ZACK with CPAP 6. Hyperlipidemia; statin Recommendations Ongoing pulmonary optimization, treatment of COVID ASA, statin therapy Consider outpatient ischemic evaluation Supportive care Justifications for Admission Other Justification JACKY VELÁZQUEZ MD May 07, 2021 16:42
--- NOTE | 2021-05-07 16:56 | RAD ---
XR CHEST 1V History: Reason: PTX / Spl. Instructions: / History: Comparison: May 07, 2021 Findings: Slightly increased small left apical pneumothorax. Left chest wall subcutaneous gas. Patchy left mid and basilar opacities, similar compared to prior. Stable right IJ central line. Unchanged heart size. Small left pleural effusion, unchanged. Hyperinflation with emphysematous changes. Impression: 1. Slightly increased small left apical pneumothorax. Electronically signed by: Ruben Ponce DO (05/07/2021 4:54 PM) [facility]
--- NOTE | 2021-05-07 16:59 | PDOC ---
PULMONARY PROGRESS NOTES DATE: 05/07/21 TIME: 16:57 Subjective Patient more short of breath, Vitals Vital Signs Date Time Temp Pulse Resp B/P (MAP) Pulse Ox O2 Delivery O2 Flow Rate FiO2 05/07/21 15:00 97.9 83 18 126/73 (90) 94 Nasal Cannula 6.0 97.9 ROS: No Nausea, No Chest Pain, No Abdominal Pain, No Increase Cough General: Alert, No acute distress Lungs: Clear, Other (Subcutaneous emphysema) Cardiovascular: S1, Other Abdomen: Soft Neuro Exam: Alert Extremities: No Edema Skin: Warm Labs Laboratory Tests Test 05/06/21 06:07 05/07/21 05:45 White Blood Count 21.1 x10^3/uL (4.0-11.0) 19.1 x10^3/uL (4.0-11.0) Red Blood Count 4.75 x10^6/uL (3.50-5.40) 4.64 x10^6/uL (3.50-5.40) Hemoglobin 13.0 g/dL (12.0-15.5) 12.5 g/dL (12.0-15.5) Hematocrit 40.8 % (36.0-47.0) 39.7 % (36.0-47.0) Mean Corpuscular Volume 86 fL (79-100) 86 fL (79-100) Mean Corpuscular Hemoglobin 27 pg (25-35) 27 pg (25-35) Mean Corpuscular Hemoglobin Concent 32 g/dL (31-37) 31 g/dL (31-37) Red Cell Distribution Width 18.9 % (11.5-14.5) 18.8 % (11.5-14.5) Platelet Count 271 x10^3/uL (140-400) 218 x10^3/uL (140-400) Neutrophils (%) (Auto) 88 % (31-73) 88 % (31-73) Lymphocytes (%) (Auto) 4 % (24-48) 5 % (24-48) Monocytes (%) (Auto) 7 % (0-9) 8 % (0-9) Eosinophils (%) (Auto) 0 % (0-3) 0 % (0-3) Basophils (%) (Auto) 0 % (0-3) 0 % (0-3) Neutrophils # (Auto) 18.6 x10^3/uL (1.8-7.7) 16.7 x10^3/uL (1.8-7.7) Lymphocytes # (Auto) 0.9 x10^3/uL (1.0-4.8) 0.9 x10^3/uL (1.0-4.8) Monocytes # (Auto) 1.6 x10^3/uL (0.0-1.1) 1.5 x10^3/uL (0.0-1.1) Eosinophils # (Auto) 0.0 x10^3/uL (0.0-0.7) 0.0 x10^3/uL (0.0-0.7) Basophils # (Auto) 0.0 x10^3/uL (0.0-0.2) 0.0 x10^3/uL (0.0-0.2) Segmented Neutrophils % 86 % (35-66) Band Neutrophils % 2 % (0-9) Lymphocytes % 6 % (24-48) Monocytes % 6 % (0-10) Nucleated Red Blood Cells 3 Platelet Estimate Adequate (ADEQUATE) Large Platelets Few Anisocytosis Slight Sodium Level 148 mmol/L (136-145) 143 mmol/L (136-145) Potassium Level 4.7 mmol/L (3.5-5.1) 4.6 mmol/L (3.5-5.1) Chloride Level 109 mmol/L (98-107) 106 mmol/L (98-107) Carbon Dioxide Level 36 mmol/L (21-32) 35 mmol/L (21-32) Anion Gap 3 (6-14) 2 (6-14) Blood Urea Nitrogen 42 mg/dL (7-20) 50 mg/dL (7-20) Creatinine 1.3 mg/dL (0.6-1.0) 1.2 mg/dL (0.6-1.0) Estimated GFR (Cockcroft-Gault) 40.5 44.4 Glucose Level 389 mg/dL (70-99) 403 mg/dL (70-99) Calcium Level 8.9 mg/dL (8.5-10.1) 8.8 mg/dL (8.5-10.1) Magnesium Level 2.5 mg/dL (1.8-2.4) Laboratory Tests Test 05/07/21 05:45 White Blood Count 19.1 x10^3/uL (4.0-11.0) Red Blood Count 4.64 x10^6/uL (3.50-5.40) Hemoglobin 12.5 g/dL (12.0-15.5) Hematocrit 39.7 % (36.0-47.0) Mean Corpuscular Volume 86 fL (79-100) Mean Corpuscular Hemoglobin 27 pg (25-35) Mean Corpuscular Hemoglobin Concent 31 g/dL (31-37) Red Cell Distribution Width 18.8 % (11.5-14.5) Platelet Count 218 x10^3/uL (140-400) Neutrophils (%) (Auto) 88 % (31-73) Lymphocytes (%) (Auto) 5 % (24-48) Monocytes (%) (Auto) 8 % (0-9) Eosinophils (%) (Auto) 0 % (0-3) Basophils (%) (Auto) 0 % (0-3) Neutrophils # (Auto) 16.7 x10^3/uL (1.8-7.7) Lymphocytes # (Auto) 0.9 x10^3/uL (1.0-4.8) Monocytes # (Auto) 1.5 x10^3/uL (0.0-1.1) Eosinophils # (Auto) 0.0 x10^3/uL (0.0-0.7) Basophils # (Auto) 0.0 x10^3/uL (0.0-0.2) Sodium Level 143 mmol/L (136-145) Potassium Level 4.6 mmol/L (3.5-5.1) Chloride Level 106 mmol/L (98-107) Carbon Dioxide Level 35 mmol/L (21-32) Anion Gap 2 (6-14) Blood Urea Nitrogen 50 mg/dL (7-20) Creatinine 1.2 mg/dL (0.6-1.0) Estimated GFR (Cockcroft-Gault) 44.4 Glucose Level 403 mg/dL (70-99) Calcium Level 8.8 mg/dL (8.5-10.1) Medications Active Scripts Medications Dose Route/Sig Max Daily Dose Days Date Category Budesonide 0.5 Mg/2 Ml Ampul.neb 0.5 Mg NEB RTBID 30 12/05/20 Rx Atorvastatin Calcium 10 Mg Tablet 10 Mg PO QHS 30 12/05/20 Rx Tylenol (Acetaminophen) 325 Mg Tablet 1-2 Tab PO PRN Q4-6HRS PRN 12/03/20 Reported Multi Vitamin Daily (Multivitamin) 1 Each Tablet 1 Tab PO DAILY 30 12/03/20 Reported Anoro Ellipta 62.5-25 Mcg Inh (Umeclidinium Brm/Vilanterol Tr) 1 Each Disk.w.dev 1 Each IH DAILY 12/03/20 Reported Namenda (Memantine Hcl) 10 Mg Tablet 5 Mg PO DAILY 12/03/20 Reported Prednisone (Prednisone) 10 Mg Tablet 4 Tab PO DAILY 5 12/03/20 Reported [Oxygen] 4 L DAILY 12/03/20 Reported Duoneb 0.5-3(2.5) Mg/3 Ml (Albuterol/Ipratropium) 3 Ml Ampul.neb 3 Ml NEB QID 12/03/20 Reported Melatonin 10 Mg Tab.rapdis 1 Tab PO QHS 30 12/03/20 Reported Cyproheptadine Hcl 4 Mg Tablet 4 Mg PO DAILY 12/03/20 Reported Bupropion Xl (Bupropion Hcl) 300 Mg Tab.er.24h 300 Mg PO DAILY 12/03/20 Reported Protonix (Pantoprazole Sodium) 20 Mg Tablet.dr 40 Mg PO DAILY 12/03/20 Reported Amlodipine Besylate 5 Mg Tablet 5 Mg PO DAILY 12/03/20 Reported Lisinopril 20 Mg Tablet 1 Tab PO DAILY 12/03/20 Reported Impression . 1. Acute on chronic hypoxic and hypercapnic respiratory failure secondary to multifactorial etiologies including large left sided pneumothorax, underlying chronic obstructive pulmonary disease with exacerbation and COVID-[address] pneumonia[address] 2[address] CT chest with a large pneumothorax on the left side. No evidence of pulmonary embolism. She is status post chest tube placement. CT angiogram shows some residual pneumothorax and a left lower lobe atelectasis. There is evidence of emphysema status post chest tube removal 05/07. 3. History of oxygen dependent chronic obstructive pulmonary disease. 4. Abnormal D-dimer, which is a nonspecific finding. No evidence of pulmonary embolism. 5. Severe protein-calorie malnutrition. 6. Mild azotemia. 7. Leukocytosis. 8. Status post pleurodesis with D50 Chest x-ray 125 reviewed, no pneumothorax Plan . Updated 2/2 Chest tube removed earlier this morning approximately 11 AM Repeat chest x-ray at 1600 hrs., revealed no significant No change Possible transfer back to [place] in the [facility]. LEANDRO CONSTANTINO MD May 07, 2021 16:59
[2021-05-07 19:00] VITALS: BP 104/54
[2021-05-07] MEDS: ATORVASTATIN CALCIUM 10 MG TABLET. PO SCH (20:06)
[2021-05-07 22:41] VITALS: BP 113/58
[2021-05-08 02:45] VITALS: BP 126/61
[2021-05-08] MEDS: IPRATROPIUM/ALBUTEROL 20/100mcg/INH INHALER. INH SCH ×4 (05:32→20:43)
[2021-05-08] MEDS: PANTOPRAZOLE 40 MG TABLET.DR. PO SCH (05:32)
[2021-05-08] MEDS: HEPARIN for SUB-Q USE 5,000 UNIT/ML VIAL. SQ SCH ×3 (05:34→21:53)
[2021-05-08] MEDS: IV 1/2 NORMAL SALINE 1,000 ML IV SCH ×3 (05:36→18:33)
[2021-05-08 06:19] LABS: BASO # 0.1 x10^3/uL (0.0-0.2); BASO % 0 % (0-3); EOS % 0 % (0-3); HEMATOCRIT 35.5 % (36.0-47.0); HEMOGLOBIN 11.1 g/dL (12.0-15.5); LYMPH # 1.6 x10^3/uL (1.0-4.8); LYMPH % 11 % (24-48); MEAN CORPUSCULAR HEMOGLOBIN 27 pg (25-35); MEAN CORPUSCULAR HGB CONC 31 g/dL (31-37); MEAN CORPUSCULAR VOLUME 86 fL (79-100); MONO # 0.9 x10^3/uL (0.0-1.1); MONO % 6 % (0-9); NEUT # 13.1 x10^3/uL (1.8-7.7); NEUT % 83 % (31-73); PLATELET COUNT 169 x10^3/uL (140-400); RED BLOOD COUNT 4.14 x10^6/uL (3.50-5.40); RED CELL DISTRIBUTION WIDTH 18.6 % (11.5-14.5); WHITE BLOOD COUNT 15.8 x10^3/uL (4.0-11.0)
[2021-05-08 06:39] LABS: CALCIUM 7.6 mg/dL (8.5-10.1); GFR 54.8; POTASSIUM 4.1 mmol/L (3.5-5.1)
[2021-05-08 07:00] VITALS: BP 117/63
[2021-05-08] MEDS: FLUTICASONE FUROATE 100mcg/INH ELLIPTA INHALER. INH SCH (09:00)
[2021-05-08] MEDS: CELECOXIB 100 MG CAPSULE. PO SCH ×2 (09:19→20:45)
[2021-05-08] MEDS: LISINOPRIL 20 MG TABLET PO SCH (09:20)
[2021-05-08] MEDS: SODIUM CHLORIDE 0.65% NASAL SPRAY 45ML BOTTLE. NS PRN (09:20)
[2021-05-08] MEDS: METOPROLOL TART IMMED RELEASE 25 MG TABLET. PO SCH ×2 (09:20→20:44)
[2021-05-08] MEDS: BENZONATATE 100 MG CAPSULE. PO SCH ×3 (09:20→20:50)
[2021-05-08] MEDS: ASPIRIN ENTERIC COATED 81 MG TABLET.DR. PO SCH (09:20)
[2021-05-08] MEDS: buPROPion XL 150 MG TAB.ER.24H. PO SCH (09:20)
[2021-05-08] MEDS: FLUTICASONE 50MCG/NASAL SPRAY 16GM BOTTLE. NS SCH (09:21)
[2021-05-08] MEDS: LACTOBACILLUS RHAMNOSUS GG 1 CAPSULE. PO SCH ×2 (09:21→20:44)
[2021-05-08] MEDS: MEMANTINE 5 MG TABLET. PO SCH ×2 (09:22→09:23)
--- NOTE | 2021-05-08 09:29 | PDOC ---
PULMONARY PROGRESS NOTES DATE: 05/08/21 TIME: 09:29 Subjective PT FEELS BETTER LESS SOA Vitals Vital Signs Date Time Temp Pulse Resp B/P (MAP) Pulse Ox O2 Delivery O2 Flow Rate FiO2 05/08/21 09:21 70 117/63 05/08/21 07:00 96.5 18 91 Nasal Cannula 6.0 96.5 ROS: No Nausea, No Chest Pain, No Abdominal Pain, No Increase Cough General: Alert, No acute distress Lungs: Clear, Other (Subcutaneous emphysema) Cardiovascular: S1, Other Abdomen: Soft Neuro Exam: Alert Extremities: No Edema Skin: Warm Labs Laboratory Tests Test 05/07/21 05:45 05/08/21 05:30 White Blood Count 19.1 x10^3/uL (4.0-11.0) 15.8 x10^3/uL (4.0-11.0) Red Blood Count 4.64 x10^6/uL (3.50-5.40) 4.14 x10^6/uL (3.50-5.40) Hemoglobin 12.5 g/dL (12.0-15.5) 11.1 g/dL (12.0-15.5) Hematocrit 39.7 % (36.0-47.0) 35.5 % (36.0-47.0) Mean Corpuscular Volume 86 fL (79-100) 86 fL (79-100) Mean Corpuscular Hemoglobin 27 pg (25-35) 27 pg (25-35) Mean Corpuscular Hemoglobin Concent 31 g/dL (31-37) 31 g/dL (31-37) Red Cell Distribution Width 18.8 % (11.5-14.5) 18.6 % (11.5-14.5) Platelet Count 218 x10^3/uL (140-400) 169 x10^3/uL (140-400) Neutrophils (%) (Auto) 88 % (31-73) 83 % (31-73) Lymphocytes (%) (Auto) 5 % (24-48) 11 % (24-48) Monocytes (%) (Auto) 8 % (0-9) 6 % (0-9) Eosinophils (%) (Auto) 0 % (0-3) 0 % (0-3) Basophils (%) (Auto) 0 % (0-3) 0 % (0-3) Neutrophils # (Auto) 16.7 x10^3/uL (1.8-7.7) 13.1 x10^3/uL (1.8-7.7) Lymphocytes # (Auto) 0.9 x10^3/uL (1.0-4.8) 1.6 x10^3/uL (1.0-4.8) Monocytes # (Auto) 1.5 x10^3/uL (0.0-1.1) 0.9 x10^3/uL (0.0-1.1) Eosinophils # (Auto) 0.0 x10^3/uL (0.0-0.7) 0.0 x10^3/uL (0.0-0.7) Basophils # (Auto) 0.0 x10^3/uL (0.0-0.2) 0.1 x10^3/uL (0.0-0.2) Sodium Level 143 mmol/L (136-145) 139 mmol/L (136-145) Potassium Level 4.6 mmol/L (3.5-5.1) 4.1 mmol/L (3.5-5.1) Chloride Level 106 mmol/L (98-107) 104 mmol/L (98-107) Carbon Dioxide Level 35 mmol/L (21-32) 33 mmol/L (21-32) Anion Gap 2 (6-14) 2 (6-14) Blood Urea Nitrogen 50 mg/dL (7-20) 34 mg/dL (7-20) Creatinine 1.2 mg/dL (0.6-1.0) 1.0 mg/dL (0.6-1.0) Estimated GFR (Cockcroft-Gault) 44.4 54.8 Glucose Level 403 mg/dL (70-99) 285 mg/dL (70-99) Calcium Level 8.8 mg/dL (8.5-10.1) 7.6 mg/dL (8.5-10.1) Laboratory Tests Test 05/08/21 05:30 White Blood Count 15.8 x10^3/uL (4.0-11.0) Red Blood Count 4.14 x10^6/uL (3.50-5.40) Hemoglobin 11.1 g/dL (12.0-15.5) Hematocrit 35.5 % (36.0-47.0) Mean Corpuscular Volume 86 fL (79-100) Mean Corpuscular Hemoglobin 27 pg (25-35) Mean Corpuscular Hemoglobin Concent 31 g/dL (31-37) Red Cell Distribution Width 18.6 % (11.5-14.5) Platelet Count 169 x10^3/uL (140-400) Neutrophils (%) (Auto) 83 % (31-73) Lymphocytes (%) (Auto) 11 % (24-48) Monocytes (%) (Auto) 6 % (0-9) Eosinophils (%) (Auto) 0 % (0-3) Basophils (%) (Auto) 0 % (0-3) Neutrophils # (Auto) 13.1 x10^3/uL (1.8-7.7) Lymphocytes # (Auto) 1.6 x10^3/uL (1.0-4.8) Monocytes # (Auto) 0.9 x10^3/uL (0.0-1.1) Eosinophils # (Auto) 0.0 x10^3/uL (0.0-0.7) Basophils # (Auto) 0.1 x10^3/uL (0.0-0.2) Sodium Level 139 mmol/L (136-145) Potassium Level 4.1 mmol/L (3.5-5.1) Chloride Level 104 mmol/L (98-107) Carbon Dioxide Level 33 mmol/L (21-32) Anion Gap 2 (6-14) Blood Urea Nitrogen 34 mg/dL (7-20) Creatinine 1.0 mg/dL (0.6-1.0) Estimated GFR (Cockcroft-Gault) 54.8 Glucose Level 285 mg/dL (70-99) Calcium Level 7.6 mg/dL (8.5-10.1) Medications Active Scripts Medications Dose Route/Sig Max Daily Dose Days Date Category Budesonide 0.5 Mg/2 Ml Ampul.neb 0.5 Mg NEB RTBID 30 12/05/20 Rx Atorvastatin Calcium 10 Mg Tablet 10 Mg PO QHS 30 12/05/20 Rx Tylenol (Acetaminophen) 325 Mg Tablet 1-2 Tab PO PRN Q4-6HRS PRN 12/03/20 Reported Multi Vitamin Daily (Multivitamin) 1 Each Tablet 1 Tab PO DAILY 30 12/03/20 Reported Anoro Ellipta 62.5-25 Mcg Inh (Umeclidinium Brm/Vilanterol Tr) 1 Each Disk.w.dev 1 Each IH DAILY 12/03/20 Reported Namenda (Memantine Hcl) 10 Mg Tablet 5 Mg PO DAILY 12/03/20 Reported Prednisone (Prednisone) 10 Mg Tablet 4 Tab PO DAILY 5 12/03/20 Reported [Oxygen] 4 L DAILY 12/03/20 Reported Duoneb 0.5-3(2.5) Mg/3 Ml (Albuterol/Ipratropium) 3 Ml Ampul.neb 3 Ml NEB QID 12/03/20 Reported Melatonin 10 Mg Tab.rapdis 1 Tab PO QHS 30 12/03/20 Reported Cyproheptadine Hcl 4 Mg Tablet 4 Mg PO DAILY 12/03/20 Reported Bupropion Xl (Bupropion Hcl) 300 Mg Tab.er.24h 300 Mg PO DAILY 12/03/20 Reported Protonix (Pantoprazole Sodium) 20 Mg Tablet.dr 40 Mg PO DAILY 12/03/20 Reported Amlodipine Besylate 5 Mg Tablet 5 Mg PO DAILY 12/03/20 Reported Lisinopril 20 Mg Tablet 1 Tab PO DAILY 12/03/20 Reported Impression . 1. Acute on chronic hypoxic and hypercapnic respiratory failure secondary to multifactorial etiologies including large left sided pneumothorax, underlying chronic obstructive pulmonary disease with exacerbation and COVID-19 [address] pneumonia[address] 2[address] chest with a large pneumothorax on the left side. No evidence of pulmonary embolism. She is status post chest tube placement. CT angiogram shows some residual pneumothorax and a left lower lobe atelectasis. There is evidence of emphysema status post chest tube removal /. 3. History of oxygen dependent chronic obstructive pulmonary disease. 4. Abnormal D-dimer, which is a nonspecific finding. No evidence of pulmonary embolism. 5. Severe protein-calorie malnutrition. 6. Mild azotemia. 7. Leukocytosis. 8. Status post pleurodesis with D50 / CXR IMPRESSION: No pneumothorax is seen today. Decreased soft tissue emphysema. Unchanged consolidative left lung base infiltrate. Mild improvement in the left midlung zone infiltrate. Small left-sided pleural effusion which has improved. Plan . 2/3 D/W DR REY JIMENEZ PLANNING IN PLACE NO PTX ON CXR LEANDRO CONSTANTINO MD May 08, 2021 09:29
--- NOTE | 2021-05-08 09:35 | RAD ---
XR CHEST 1V CLINICAL INDICATIONS: Follow-up of pneumothorax. COMPARISON: May 07, 2021. Findings: No pneumothorax is seen. There is soft tissue emphysema of the left lateral chest which has decreased. No pneumomediastinum is seen. There is a small left-sided pleural effusion which has impr dayton. There is persistent left lung base infiltrate which is unchanged. Left midlung zone infiltrate is still apparent with mild improvement. Chronic interstitial thickening of the right lung base is se en. Right IJ central line is unchanged in position. Heart size and mediastinum are stable. IMPRESSION: No pneumothorax is seen today. Decreased soft tissue emphysema. Unchanged consolidative left lung base infiltrate. Mild improvement in the left midlung zone infiltra te. Small left-sided pleural effusion which has improved. Electronically signed by: Beau Gomez MD (05/08/2021 9:33 AM) [id number]
[2021-05-08 10:47] VITALS: BP 110/58
--- NOTE | 2021-05-08 11:44 | NUR ---
SS following up with discharge planning. SS reviewed pt chart and discussed with pt RN. Pt is currently requiring oxygen at six liters nasal canula. COVID19 positive. Chest tube removed yesterday. Pt is resident at [facility], ; fax [phone]. PT/OT ordered. Clinical updates phoned and faxed to [facility]. SS will continue to follow for discharge planning.
[2021-05-08 15:00] VITALS: BP 115/55
[2021-05-08 19:34] VITALS: BP 123/56
--- NOTE | 2021-05-08 19:38 | PN ---
DATE: 05/08/2021 DAILY PROGRESS NOTE LOCATION: Patient is in room 658. SUBJECTIVE: This 70-year-old female remains hospitalized with acute hypoxic respiratory failure due to COVID-19 pneumonia with exacerbation of COPD. She has had a left pneumothorax with chest tube coming out yesterday from which she feels much better and a chest x-ray this morning shows no pneumo and actually better infiltrates on the left side as well as left pleural effusions. O2 is stable at 6 L per nasal cannula. She is very weak. OBJECTIVE: VITAL SIGNS: Stable. She is afebrile. GENERAL: She is awake and alert, feels much better with chest tube out. CHEST: Reveals decreased breath sounds. HEART: Regular rate and rhythm. ABDOMEN: Benign. LABORATORY DATA: White blood count this morning is decreased further to 15.8 with a resolving left shift. BUN is down to 34 and creatinine 1 this morning. ASSESSMENT: 1. Acute hypoxic respiratory failure. 2. COVID-19 pneumonia. 3. Severe chronic obstructive pulmonary disease. 4. Left pneumothorax, resolved. 5. Dehydration, improved as evidenced by kidney labs this morning. PLAN: Continue present care. Awaiting PT evaluation to approved for halfway rehabilitation, which however, she is going to need it, so I doubt she can go back to the assisted living situation. She was after being in bed now for a couple of weeks due to this infection of the chest tube. DONNY WHITE: Mary TID: [id number]
[2021-05-08] MEDS: ATORVASTATIN CALCIUM 10 MG TABLET. PO SCH (20:45)
[2021-05-08 22:50] VITALS: BP 97/52
[2021-05-09 02:00] VITALS: BP 93/51
[2021-05-09] MEDS: IPRATROPIUM/ALBUTEROL 20/100mcg/INH INHALER. INH SCH (06:00)
[2021-05-09] MEDS: PANTOPRAZOLE 40 MG TABLET.DR. PO SCH (06:05)
[2021-05-09] MEDS: IV 1/2 NORMAL SALINE 1,000 ML IV SCH (06:05)
[2021-05-09] MEDS: HEPARIN for SUB-Q USE 5,000 UNIT/ML VIAL. SQ SCH (06:06)
[2021-05-09 07:00] VITALS: BP 120/58
--- NOTE | 2021-05-09 08:25 | PDOC ---
PULMONARY PROGRESS NOTES DATE: 05/09/21 TIME: 08:25 Subjective patient seen sitting up in bed, feeling better she is on 6L NC. up to BSC with assist, mild dyspnea. Vitals Vital Signs Date Time Temp Pulse Resp B/P (MAP) Pulse Ox O2 Delivery O2 Flow Rate FiO2 05/09/21 02:00 98.1 76 16 93/51 (65) 100 Nasal Cannula 6.0 98.1 ROS: No Nausea, No Chest Pain, No Abdominal Pain, No Increase Cough General: Alert, No acute distress Lungs: Clear, Other (Subcutaneous emphysema) Cardiovascular: S1, Other Abdomen: Soft Neuro Exam: Alert Extremities: No Edema Skin: Warm Labs Laboratory Tests Test 05/08/21 05:30 White Blood Count 15.8 x10^3/uL (4.0-11.0) Red Blood Count 4.14 x10^6/uL (3.50-5.40) Hemoglobin 11.1 g/dL (12.0-15.5) Hematocrit 35.5 % (36.0-47.0) Mean Corpuscular Volume 86 fL (79-100) Mean Corpuscular Hemoglobin 27 pg (25-35) Mean Corpuscular Hemoglobin Concent 31 g/dL (31-37) Red Cell Distribution Width 18.6 % (11.5-14.5) Platelet Count 169 x10^3/uL (140-400) Neutrophils (%) (Auto) 83 % (31-73) Lymphocytes (%) (Auto) 11 % (24-48) Monocytes (%) (Auto) 6 % (0-9) Eosinophils (%) (Auto) 0 % (0-3) Basophils (%) (Auto) 0 % (0-3) Neutrophils # (Auto) 13.1 x10^3/uL (1.8-7.7) Lymphocytes # (Auto) 1.6 x10^3/uL (1.0-4.8) Monocytes # (Auto) 0.9 x10^3/uL (0.0-1.1) Eosinophils # (Auto) 0.0 x10^3/uL (0.0-0.7) Basophils # (Auto) 0.1 x10^3/uL (0.0-0.2) Sodium Level 139 mmol/L (136-145) Potassium Level 4.1 mmol/L (3.5-5.1) Chloride Level 104 mmol/L (98-107) Carbon Dioxide Level 33 mmol/L (21-32) Anion Gap 2 (6-14) Blood Urea Nitrogen 34 mg/dL (7-20) Creatinine 1.0 mg/dL (0.6-1.0) Estimated GFR (Cockcroft-Gault) 54.8 Glucose Level 285 mg/dL (70-99) Calcium Level 7.6 mg/dL (8.5-10.1) Medications Active Scripts Medications Dose Route/Sig Max Daily Dose Days Date Category Budesonide 0.5 Mg/2 Ml Ampul.neb 0.5 Mg NEB RTBID 30 12/05/20 Rx Atorvastatin Calcium 10 Mg Tablet 10 Mg PO QHS 30 12/05/20 Rx Tylenol (Acetaminophen) 325 Mg Tablet 1-2 Tab PO PRN Q4-6HRS PRN 12/03/20 Reported Multi Vitamin Daily (Multivitamin) 1 Each Tablet 1 Tab PO DAILY 30 12/03/20 Reported Anoro Ellipta 62.5-25 Mcg Inh (Umeclidinium Brm/Vilanterol Tr) 1 Each Disk.w.dev 1 Each IH DAILY 12/03/20 Reported Namenda (Memantine Hcl) 10 Mg Tablet 5 Mg PO DAILY 12/03/20 Reported Prednisone (Prednisone) 10 Mg Tablet 4 Tab PO DAILY 5 12/03/20 Reported [Oxygen] 4 L DAILY 12/03/20 Reported Duoneb 0.5-3(2.5) Mg/3 Ml (Albuterol/Ipratropium) 3 Ml Ampul.neb 3 Ml NEB QID 12/03/20 Reported Melatonin 10 Mg Tab.rapdis 1 Tab PO QHS 30 12/03/20 Reported Cyproheptadine Hcl 4 Mg Tablet 4 Mg PO DAILY 12/03/20 Reported Bupropion Xl (Bupropion Hcl) 300 Mg Tab.er.24h 300 Mg PO DAILY 12/03/20 Reported Protonix (Pantoprazole Sodium) 20 Mg Tablet.dr 40 Mg PO DAILY 12/03/20 Reported Amlodipine Besylate 5 Mg Tablet 5 Mg PO DAILY 12/03/20 Reported Lisinopril 20 Mg Tablet 1 Tab PO DAILY 12/03/20 Reported Impression . 1. Acute on chronic hypoxic and hypercapnic respiratory failure secondary to multifactorial etiologies including large left sided pneumothorax, underlying chronic obstructive pulmonary disease with exacerbation and COVID-19 viral pneumonia[address] 2[address] CT chest with a large pneumothorax on the left side. No evidence of pulmonary embolism. She is status post chest tube placement. CT angiogram shows some residual pneumothorax and a left lower lobe atelectasis. There is evidence of emphysema status post chest tube removal /. 3. History of oxygen dependent chronic obstructive pulmonary disease. 4. Abnormal D-dimer, which is a nonspecific finding. No evidence of pulmonary embolism. 5. Severe protein-calorie malnutrition. 6. Mild azotemia. 7. Leukocytosis. 8. Status post pleurodesis with D50 / CXR IMPRESSION: No pneumothorax is seen today. Decreased soft tissue emphysema. Unchanged consolidative left lung base infiltrate. Mild improvement in the left midlung zone infiltrate. Small left-sided pleural effusion which has improved. Plan . no pneumothorax on cxray continue supplemental oxygen discharge planning in progress LEANDRO CONSTANTINO MD May 09, 2021 08:25
[2021-05-09] MEDS: FLUTICASONE FUROATE 100mcg/INH ELLIPTA INHALER. INH SCH (09:00)
[2021-05-09] MEDS: LACTOBACILLUS RHAMNOSUS GG 1 CAPSULE. PO SCH (09:11)
[2021-05-09] MEDS: FLUTICASONE 50MCG/NASAL SPRAY 16GM BOTTLE. NS SCH ×2 (09:11→09:14)
[2021-05-09] MEDS: CELECOXIB 100 MG CAPSULE. PO SCH (09:11)
[2021-05-09] MEDS: ASPIRIN ENTERIC COATED 81 MG TABLET.DR. PO SCH (09:11)
[2021-05-09] MEDS: buPROPion XL 150 MG TAB.ER.24H. PO SCH (09:11)
[2021-05-09] MEDS: BENZONATATE 100 MG CAPSULE. PO SCH (09:11)
[2021-05-09] MEDS: SODIUM CHLORIDE 0.65% NASAL SPRAY 45ML BOTTLE. NS PRN (09:11)
[2021-05-09] MEDS: LISINOPRIL 20 MG TABLET PO SCH (09:12)
[2021-05-09] MEDS: METOPROLOL TART IMMED RELEASE 25 MG TABLET. PO SCH (09:13)
--- NOTE | 2021-05-09 09:22 | RAD ---
EXAMINATION: XR CHEST 1V CLINICAL HISTORY: Follow-up pneumothorax. TECHNIQUE: XR CHEST 1V COMPARISON: 05/08/2021 FINDINGS/ IMPRESSION: No definitively visualized pneumothorax. Slightly increased patchy right basilar airspace disease. Pe rsistent patchy airspace disease in the left mid and lower lung zones with probable small pleural eff usion, similar to prior study. Stable heart size. Right internal jugular central venous catheter lilliam ins in similar position. Electronically signed by: Dru Chery DO (05/09/2021 9:20 AM) SOBEIDA
[2021-05-09 11:00] VITALS: BP 101/65
--- NOTE | 2021-05-09 11:44 | NUR ---
SS following up with discharge planning. SS reviewed pt chart and discussed with pt RN. Pt is currently requiring oxygen at six liters nasal canula. COVID19 positive. Pt is LTC resident at [facility], ; fax [phone]. PT/OT recommended long term unit. Anticipate discharge back to [facility] later today. SS will continue to follow for discharge planning. Addendum: 05/09/21 at 1148 by YRN PARKER SS Pt confused. Pt stating that [facility]. SS contacted pt's daughter, Michael, and discussed. Pt's daughter reported that they have toured some assisted livings but nothing is official. Pt's daughter agreeable to skilled rehabilitation and requested that pt return to [facility] at this time.
[2021-05-09] MEDS ORDERED: METO25TA4 PO (13:00)
--- NOTE | 2021-05-09 13:02 | SNU/HH DC ---
DISCHARGE ORDERS DISCHARGE INFORMATION: DISCHARGE DATE: May 09, 2021 FINAL DIAGNOSIS Problems Medical Problems: (1) Acute hypercapnic respiratory failure Status: Acute (2) Acute hypoxemic respiratory failure Status: Acute (3) Demand ischemia Status: Acute CONDITION ON DISCHARGE: Stable CODE STATUS: Code Status: Full LONGTERM: SNF STAY <30 DAYS: Yes HOSPICE: HOSPICE: No HOSPICE EVAL & TREAT: No LTAC: ADMIT TO LTAC: No POST DISCHARGE ORDERS: ACTIVITY ORDERS: Activity as tolerated DIET AFTER DISCHARGE: Cardiac TREATMENT/EQUIPMENT ORDERS: RESPIRATORY EQUIPMENT NEEDED: Oxygen Physical Therapy For: Evalulation/Treatment Occupational Therapy For: Evaluation/Treatment Speech Language Pathology For: Evaluation/Treatment DISCHARGE MEDICATIONS: Home Meds Active Scripts Metoprolol Tartrate (METOPROLOL TARTRATE) 25 Mg Tablet, 25 MG PO BID for cardiac ischemia for 30 Days, #60 TAB Prov:ASTRID LE MD 05/09/21 Budesonide (BUDESONIDE) 0.5 Mg/2 Ml Ampul.neb, 0.5 MG NEB RTBID for . for 30 Days, #1 EACH Prov:CASTLE,NIAL K III DO 12/05/20 Atorvastatin Calcium (ATORVASTATIN CALCIUM) 10 Mg Tablet, 10 MG PO QHS for 1 for 30 Days, #30 TAB Prov:CASTLE,NIAL K III DO 12/05/20 Reported Medications Acetaminophen (TYLENOL) 325 Mg Tablet, 1-2 TAB PO PRN Q4-6HRS PRN for MILD PAIN / TEMP > 100.3'F, #60 TAB 2 Refills 12/03/20 Multivitamin (MULTI VITAMIN DAILY) 1 Each Tablet, 1 TAB PO DAILY for for 30 Days, #30 TAB 0 Refills 12/03/20 Umeclidinium Brm/Vilanterol Tr (ANORO ELLIPTA 62.5-25 MCG INH) 1 Each Disk.w.dev, 1 EACH IH DAILY for copd, INH 12/03/20 Memantine Hcl (NAMENDA) 10 Mg Tablet, 5 MG PO DAILY for , TAB 12/03/20 [Oxygen] No Conflict Check, 4 L DAILY 12/03/20 Ipratropium/Albuterol Sulfate (DUONEB 0.5-3(2.5) MG/3 ML) 3 Ml Ampul.neb, 3 ML NEB QID for COPD, EACH 12/03/20 Melatonin (Melatonin) 10 Mg Tab.rapdis, 1 TAB PO QHS for sleep for 30 Days, #30 TAB 0 Refills 12/03/20 Cyproheptadine Hcl (CYPROHEPTADINE HCL) 4 Mg Tablet, 4 MG PO DAILY for UNKNOWN, TAB 12/03/20 Bupropion Hcl (BUPROPION XL) 300 Mg Tab.er.24h, 300 MG PO DAILY for DEPRESSION, TAB.SR 12/03/20 Pantoprazole Sodium (PROTONIX) 20 Mg Tablet.dr, 40 MG PO DAILY for GERD, TAB 12/03/20 Amlodipine Besylate (AMLODIPINE BESYLATE) 5 Mg Tablet, 5 MG PO DAILY for HTN, TAB 12/03/20 Lisinopril (LISINOPRIL) 20 Mg Tablet, 1 TAB PO DAILY for HYPERTENSION, #30 TAB 5 Refills 12/03/20 Discontinued Reported Medications Prednisone (PREDNISONE ) 10 Mg Tablet, 4 TAB PO DAILY for for 5 Days, #20 TAB 0 Refills 12/03/20 ASTRID LE MD May 09, 2021 13:02
--- NOTE | 2021-05-09 15:15 | DS ---
DATE OF DISCHARGE: 05/09/2021 PRIMARY DIAGNOSIS: Acute hypoxic respiratory failure. ADDITIONAL DIAGNOSES: COVID-19 pneumonia; large left pneumothorax; severe underlying chronic obstructive pulmonary disease, normally O2 dependent at 4 liters per nasal cannula; D50 pleurodesis done during the stay and chest tube throughout the majority of the stay; profound weakness; severe protein ; leukocytosis; acute kidney injury, resolved. CHIEF COMPLAINT AND HISTORY OF PRESENT ILLNESS: This 70-year-old female presented to the Emergency Room with shortness of breath and acute hypoxia, was found to have a large left pneumothorax, COVID positive, evidence of pneumonia, had a chest tube placed in the Emergency Room, placed on BiPAP and admitted to the hospital. SUMMARY OF STAY: The patient was treated throughout the stay for her problems. She took forever to resolve her pneumothorax whenever the chest tube was taken off suction. She did receive D50 pleurodesis with resolving the problem finally. We are able to get rid of the chest tubes 2 nights before discharge. She was profoundly weak and needing help, O2 needs which has been BiPAP initially and as high as 10-11 liters throughout much of the stay, came down to 6 liters after chest tube was out and resolution of the pneumothorax, which is a little higher than where she normally runs at home at 4. We felt she would need alf at the time of discharge for strengthening prior to being able to live independently where she was in assisted living prior to admission and this was accomplished. DISPOSITION: The patient is discharged to alf on a regular diet. ACTIVITY: As tolerated. PT and OT to follow. DISCHARGE MEDICATIONS: Listed on the med rec and have been addressed. PLAN: We will continue to follow her there. ANALI WHITE: Mary TID: [id number]
== END 2021-05-09 15:33 | DRG 177 ==
LOC: ER 03:05 → ED HOLD 04:05 → 6 SOUTH 05:26
PROVIDERS: ADMIT Internal Medicine; ATTEND Internal Medicine
PROC: 5A09357 Assistance with Respiratory Ventilation, Less than 24 Consecutive Hours, Continuous Positive Airway Pressure (ICD-10-PCS; 2021-04-26)
PROC: 0W9B30Z Drainage of Left Pleural Cavity with Drainage Device, Percutaneous Approach (ICD-10-PCS; 2021-04-26)
PROC: 02HV33Z Insertion of Infusion Device into Superior Vena Cava, Percutaneous Approach (ICD-10-PCS; 2021-04-26)
PROC: B548ZZA Ultrasonography of Superior Vena Cava, Guidance (ICD-10-PCS; 2021-04-26)
PROC: 5A0935A Assistance with Respiratory Ventilation, Less than 24 Consecutive Hours, High Flow/Velocity Cannula (ICD-10-PCS; 2021-04-27)
PROC: 5A09357 Assistance with Respiratory Ventilation, Less than 24 Consecutive Hours, Continuous Positive Airway Pressure (ICD-10-PCS; 2021-04-28)
PROC: 5A0935A Assistance with Respiratory Ventilation, Less than 24 Consecutive Hours, High Flow/Velocity Cannula (ICD-10-PCS; 2021-04-29)
PROC: XW033E5 Introduction of Remdesivir Anti-infective into Peripheral Vein, Percutaneous Approach, New Technology Group 5 (ICD-10-PCS; 2021-04-29)
PROC: 5A0935A Assistance with Respiratory Ventilation, Less than 24 Consecutive Hours, High Flow/Velocity Cannula (ICD-10-PCS; 2021-04-30)
PROC: 5A0935A Assistance with Respiratory Ventilation, Less than 24 Consecutive Hours, High Flow/Velocity Cannula (ICD-10-PCS; principal; 2021-05-01)
PROC: 5A0935A Assistance with Respiratory Ventilation, Less than 24 Consecutive Hours, High Flow/Velocity Cannula (ICD-10-PCS; 2021-05-03)
PROC: 0WPBX0Z Removal of Drainage Device from Left Pleural Cavity, External Approach (ICD-10-PCS; 2021-05-07)
DX: U07.1 COVID-19 (principal); J12.82 Pneumonia due to coronavirus disease 2019; J96.21 Acute and chronic respiratory failure with hypoxia; E43 Unspecified severe protein-calorie malnutrition; J15.9 Unspecified bacterial pneumonia; J96.22 Acute and chronic respiratory failure with hypercapnia; J93.82 Other air leak; J98.11 Atelectasis; Z68.1 Body mass index [BMI] 19.9 or less, adult; E78.5 Hyperlipidemia, unspecified; E86.0 Dehydration; G47.33 Obstructive sleep apnea (adult) (pediatric); I10 Essential (primary) hypertension; J43.9 Emphysema, unspecified; Z87.01 Personal history of pneumonia (recurrent); Z87.891 Personal history of nicotine dependence; Z99.81 Dependence on supplemental oxygen; Z88.8 Allergy status to other drugs, medicaments and biological substances
CPT/HCPCS: 32551; 36415; 36556; 36600; 71045; 71275; 80048; 80053; 81001; 82805; 83605; 83735; 83880; 84484; 85007; 85025; 85379; 85610; 85730; 87040; 87086; 87428; 93005; 94644; 94660; 94760; 96365; 96367; 96375; 96376; 99292; J0171; J0456; J0696; J1100; J1644; J2270; J3010; J3490; J7040; J7042; J7050; J7060; Q9967; 97110-GP; 99291-25; G0378; J7030; J7613; J7626

== ENCOUNTER 2021-05-12 23:09 | Inpatient (IN) | payer MEDICARE, MEDICAID ==
[~2021-05-12] VITALS: Ht 160 cm; Wt 50.1 kg
[~2021-05-12 23:09] MED LIST changes: +METO25TA4 PO
--- NOTE | 2021-05-12 23:48 | ED.ADGEN ---
Past Medical History Past Medical History: COPD Additional Past Medical Histor: 4L OXYGEN @ HOME, COVID PNEUMONIA, CHEST TUBE Past Surgical History: No Surgical History Smoking Status: Unknown if ever smoked Alcohol Use: None General Adult EDM: Chief Complaint: DYSPNEA/RESPIRATORY DISTRESS HPI: HPI: Patient is a 70 year old female coming in from nursing facility for hypoxia and shortness of breath. Patient was released from the hospital 3 days ago she is being treated for a right-sided pneumothorax and a COVID-19 pneumonia. She was in the hospital for about 2 weeks. Patient has been doing well is back to baseline when she was discharged. Around 1900 she began to feel short of breath. Patient wears baseline 2 L nasal cannula, was satting 84% on 6 L on EMS arrival. Patient was placed on a nonrebreather and improved to 98 to 100% Review of Systems: Review of Systems: All other systems within normal limits except for as noted in the HPI Current Medications: Current Medications Medications (Trade) Dose Ordered Sig/Olivia Start Time Stop Time Status Last Admin Dose Admin Albuterol/ Ipratropium (Duoneb) 3 ml STK-MED ONCE 05/13/21 00:12 05/13/21 00:13 DC Methylprednisolone Sodium Succinate (SOLU-Medrol 125MG VIAL) 125 mg 1X ONCE 05/13/21 01:00 05/13/21 01:01 DC 05/13/21 02:29 125 MG Sodium Chloride 500 ml @ 500 mls/hr 1X ONCE 05/13/21 01:00 05/13/21 01:59 DC 05/13/21 02:28 500 MLS/HR Allergies: Allergies: Allergies Coded Allergies Type Severity Reaction Last Updated Verified codeine Allergy Intermediate 12/04/20 Yes tiotropium Allergy Intermediate 12/04/20 Yes Physical Exam: PE: Constitutional: Well developed, well nourished, no acute distress, non-toxic appearance. [] HENT: Normocephalic, atraumatic, bilateral external ears normal, nose normal. [] Eyes: PERRLA, conjunctiva normal, no discharge. [] Neck: No rigidity, supple, no stridor. [] Cardiovascular: Regular rate and rhythm, brisk cap refill [] Lungs & Thorax: Non labored symmetric respirations, mild tachypnea, diminished sounds Abdomen: Soft, nondistended. Skin: Warm, dry, no erythema, no rash. [] Back: Unremarkable Extremities: No deformities, range of motion grossly intact, no lower extremity edema [] Neurologic: Alert and oriented X 3, no focal deficits noted. [] Psychologic: Affect normal, judgement normal, mood normal. [] Current Patient Data: Labs: Laboratory Tests Test 05/12/21 23:25 05/12/21 23:50 05/12/21 23:59 Influenza Type A Antigen Negative (NEGATIVE) Influenza Type B Antigen Negative (NEGATIVE) SARS-CoV-2 Antigen (Rapid) Negative (NEGATIVE) Urine Collection Type U cath Urine Color Esthela Urine Clarity Clear Urine pH 6.0 (<5.0-8.0) Urine Specific [place] 1.015 (1.000-1.030) Urine Protein 30 mg/dL (NEG-TRACE) Urine Glucose (UA) 100 mg/dL (NEG) Urine Ketones (Stick) Negative mg/dL (NEG) Urine Blood Negative (NEG) Urine Nitrite Negative (NEG) Urine Bilirubin Small (NEG) Urine Urobilinogen Dipstick 1.0 mg/dL (0.2 mg/dL) Urine Leukocyte Esterase Negative (NEG) Urine RBC Occ /HPF (0-2) Urine WBC 1-4 /HPF (0-4) Urine Squamous Epithelial Cells Few /LPF Urine Bacteria 0 /HPF (0-FEW) Urine Hyaline Casts Few /HPF Urine Mucus Slight /LPF White Blood Count 13.3 x10^3/uL (4.0-11.0) H Red Blood Count 3.60 x10^6/uL (3.50-5.40) Hemoglobin 9.7 g/dL (12.0-15.5) L Hematocrit 30.9 % (36.0-47.0) L Mean Corpuscular Volume 86 fL (79-100) Mean Corpuscular Hemoglobin 27 pg (25-35) Mean Corpuscular Hemoglobin Concent 32 g/dL (31-37) Red Cell Distribution Width 18.6 % (11.5-14.5) H Platelet Count 231 x10^3/uL (140-400) Neutrophils (%) (Auto) 76 % (31-73) H Lymphocytes (%) (Auto) 12 % (24-48) L Monocytes (%) (Auto) 11 % (0-9) H Eosinophils (%) (Auto) 1 % (0-3) Basophils (%) (Auto) 1 % (0-3) Neutrophils # (Auto) 10.2 x10^3/uL (1.8-7.7) H Lymphocytes # (Auto) 1.6 x10^3/uL (1.0-4.8) Monocytes # (Auto) 1.4 x10^3/uL (0.0-1.1) H Eosinophils # (Auto) 0.1 x10^3/uL (0.0-0.7) Basophils # (Auto) 0.1 x10^3/uL (0.0-0.2) Platelet Estimate Pending D-Dimer (Katie) 3.15 ug/mlFEU (0.00-0.50) H Sodium Level 139 mmol/L (136-145) Potassium Level 4.9 mmol/L (3.5-5.1) Chloride Level 100 mmol/L (98-107) Carbon Dioxide Level 30 mmol/L (21-32) Anion Gap 9 (6-14) Blood Urea Nitrogen 22 mg/dL (7-20) H Creatinine 2.2 mg/dL (0.6-1.0) H Estimated GFR (Cockcroft-Gault) 22.1 BUN/Creatinine Ratio 10 (6-20) Glucose Level 218 mg/dL (70-99) H Lactic Acid Level 2.0 mmol/L (0.4-2.0) Calcium Level 8.6 mg/dL (8.5-10.1) Total Bilirubin 0.6 mg/dL (0.2-1.0) Aspartate Amino Transferase (AST) 23 U/L (15-37) Alanine Aminotransferase (ALT) 24 U/L (14-59) Alkaline Phosphatase 95 U/L (46-116) Troponin I High Sensitivity 121 ng/L (4-50) H UA-Mhf-F-Type Natriuretic Peptide 430 pg/mL (0-124) H Total Protein 6.2 g/dL (6.4-8.2) L Albumin 1.9 g/dL (3.4-5.0) L Albumin/Globulin Ratio 0.4 (1.0-1.7) L Laboratory Tests 05/12/21 23:59 Laboratory Tests 05/12/21 23:59 Vital Signs: Vital Signs Date Time Temp Pulse Resp B/P (MAP) Pulse Ox O2 Delivery O2 Flow Rate FiO2 05/13/21 01:39 116 24 89/51 (64) 99 Nasal Cannula 4.0 05/12/21 23:09 98.7 98.7 EKG: EKG: Sinus tachycardia, heart rate 150 bpm, normal axis, no STEMI [] Heart Score: C/O Chest Pain: No HEART Score for Chest Pain: HEART Score for Chest Pain Response (Comments) Value History Slighlty/Non-Suspicious 0 ECG Nonspecific Repolarizatio 1 Age > 65 2 Risk Factors 1 or 2 Risk Factors 1 Troponin >1-<3x Normal Limit 1 Total 5 Risk Factors: Risk Factors: DM, Current or recent (<one month) smoker, HTN, HLP, family history of CAD, obesity. Risk Scores: Score 0 - 3: 2.5% MACE over next 6 weeks - Discharge Home Score 4 - 6: 20.3% MACE over next 6 weeks - Admit for Clinical Observation Score 7 - 10: 72.7% MACE over next 6 weeks - Early Invasive Strategies Radiology/Procedures: Radiology/Procedures: [facility] [address] [place] [address] IMAGING REPORT Signed PATIENT: WARREN CARR ACCOUNT: [id number] : 1950 LOCATION: ER AGE: 70 SEX: F EXAM STATUS: REG ER ORD. PHYSICIAN: BHANU BERNABE MD REASON: hypoxic PROCEDURE: CHEST AP ONLY XR CHEST 1V Clinical History: Reason: hypoxic / Spl. Instructions: / History: Technique: AP view of the chest was obtained at 05/12/2021 11:23 PM. Comparison: May 09, 2021. Findings: The cardiomediastinal silhouette is normal. The pulmonary vasculature is normal. There is patchy perihilar and basilar opacities on the left and there is linear opacities in the right lung base. Impression: Pulmonary infiltrates appear mildly worsened with atypical pneumonia. Recommend follow-up chest x-ray complete resolution. Electronically signed by: Dimitry Escobedo III, MD (05/13/2021 12:47 AM) [facility] DICTATED and SIGNED BY: DIMITRY ESCOBEDO III, MD DATE: 05/13/21 [id number] [] Course & Med Decision Making: Course & Med Decision Making Pertinent Labs and Imaging studies reviewed. (See chart for details) Patient with worsening infiltrates on chest x-ray. Recent hospitalization who cover for a HCAP. Elevated dimer, but unable to do do CTA chest due to CARMELO. Giorgio l give a dose of therapeutic enoxaparin since patient has new sudden shortness of breath. Admitted to patient's primary care provider for either hydration and CTA later or VQ scan. [] Dragon Disclaimer: Dragon Disclaimer: This electronic medical record was generated, in whole or in part, using a voice recognition dictation system. Departure Departure Impression: Primary Impression: HCAP (healthcare-associated pneumonia) Additional Impressions: CARMELO (acute kidney injury) COPD exacerbation Disposition: ADMITTED INPATIENT Condition: GUARDED Referrals: ASTRID LE MD (PCP) Problem Qualifiers BHANU BERNABE MD May 12, 2021 23:48
[2021-05-12 23:59] LABS: BILIRUBIN,URINE SMALL (NEG); CLARITY,URINE CLEAR; COLOR,URINE AMBER; NITRITE,URINE NEGATIVE (NEG); PROTEIN,URINE 30 mg/dL (NEG-TRACE)
[2021-05-13 00:04] LABS: INFLUENZA A PATIENT NEGATIVE (NEGATIVE); INFLUENZA B PATIENT NEGATIVE (NEGATIVE)
[2021-05-13 00:12] LABS: BACTERIA,URINE 0 /HPF (0-FEW); HYALINE CASTS, URINE FEW /HPF; RBC,URINE OCC /HPF (0-2)
[2021-05-13] MEDS ORDERED: IPRATRPIUM/ALBUTEROL 0.5/2.5MG 3 ML NEBU. ONE (00:12)
[2021-05-13 00:15] LABS: BASO # 0.1 x10^3/uL (0.0-0.2); BASO % 1 % (0-3); EOS # 0.1 x10^3/uL (0.0-0.7); EOS % 1 % (0-3); HEMATOCRIT 30.9 % (36.0-47.0); HEMOGLOBIN 9.7 g/dL (12.0-15.5); LYMPH # 1.6 x10^3/uL (1.0-4.8); LYMPH % 12 % (24-48); MEAN CORPUSCULAR HEMOGLOBIN 27 pg (25-35); MEAN CORPUSCULAR HGB CONC 32 g/dL (31-37); MEAN CORPUSCULAR VOLUME 86 fL (79-100); MONO # 1.4 x10^3/uL (0.0-1.1); MONO % 11 % (0-9); NEUT # 10.2 x10^3/uL (1.8-7.7); NEUT % 76 % (31-73); PLATELET COUNT 231 x10^3/uL (140-400); RED CELL DISTRIBUTION WIDTH 18.6 % (11.5-14.5); WHITE BLOOD COUNT 13.3 x10^3/uL (4.0-11.0)
[2021-05-13] MEDS: ALBUTEROL SULFATE 2.5 MG/3 ML NEBU. NEB PRN ×3 (00:30→02:15)
[2021-05-13 00:33] LABS: CALCIUM 8.6 mg/dL (8.5-10.1); CREATININE 2.2 mg/dL (0.6-1.0); GFR 22.1; POTASSIUM 4.9 mmol/L (3.5-5.1)
[2021-05-13 00:37] LABS: ALBUMIN 1.9 g/dL (3.4-5.0); ALBUMIN/GLOBULIN RATIO 0.4 (1.0-1.7); TOTAL BILIRUBIN 0.6 mg/dL (0.2-1.0); TOTAL PROTEIN 6.2 g/dL (6.4-8.2)
--- NOTE | 2021-05-13 00:49 | RAD ---
XR CHEST 1V Clinical History: Reason: hypoxic / Spl. Instructions: / History: Technique: AP view of the chest was obtained at 05/12/2021 11:23 PM. Comparison: May 09, 2021. Findings: The cardiomediastinal silhouette is normal. The pulmonary vasculature is normal. There is patchy georgina hilar and basilar opacities on the left and there is linear opacities in the right lung base. Impression: Pulmonary infiltrates appear mildly worsened with atypical pneumonia. Recommend follow-up chest x-ray complete resolution. Electronically signed by: Ferdinand Cleaya III, MD (05/13/2021 12:47 AM) [facility]
[2021-05-13] MEDS ORDERED: methylPREDNISolone SOD SUCC PF 125 MG/2 ML VIAL. IV ONE (01:00)
[2021-05-13] MEDS ORDERED: IV NORMAL SALINE 500ML BAG 500 ML IV ONE (01:00)
[2021-05-13] MEDS ORDERED: ACETAMINOPHEN 325 MG TABLET. PO PRN ×3 (02:00→10:45)
[2021-05-13] MEDS ORDERED: fentaNYL PF VIAL 100 MCG/2 ML VIAL IVP PRN (02:00)
[2021-05-13] MEDS ORDERED: CEFEPIME HCL IV Push 1 GM VIAL. IVP ONE (02:00)
[2021-05-13] MEDS ORDERED: ONDANSETRON PF 4 MG/2 ML VIAL. IVP PRN (02:00)
[2021-05-13] MEDS ORDERED: VANCOMYCIN 1.25 GM in IV NORMAL SALINE 500ML BAG 500 ML IV ONE (02:15)
[2021-05-13] MEDS: IV NORMAL SALINE 1000ML BAG 1,000 ML IV SCH ×2 (02:31→16:50)
[2021-05-13] MEDS ORDERED: VANCOMYCIN 1.25 GM in IV NORMAL SALINE 250ML 250 ML IV ONE (03:00)
[2021-05-13 04:44] LABS: % ATYL 2 % (0-0); % BANDS 10 % (0-9); % EOS 2 % (0-5); % LYMPHS 12 % (24-48); % METAS 3 % (0-0); % MONOS 11 % (0-10); % SEGS 60 % (35-66)
[2021-05-13 04:45] LABS: ANISOCYTOSIS SLIGHT; PLT ESTIMATE ADEQUATE (ADEQUATE); POLYCHROMASIA SLIGHT
[2021-05-13 05:00] VITALS: BP 112/54
[2021-05-13] MEDS ORDERED: MULT-245 PO (05:28)
[2021-05-13] MEDS ORDERED: MAGN24003 PO (05:29)
[2021-05-13 05:36] LABS: PCO2 ABG 38 mmHg (35-46); PO2 ABG 60 mmHg (65-108)
[2021-05-13 05:37] LABS: BASE EXCESS ABG 1 mmol/L (-3-3); HCO3 ABG 25 mmol/L (21-28); SAT O2 ABG 90 % (92-99)
--- NOTE | 2021-05-13 06:06 | EKG ---
[facility] [address] [place] [address] Test Date: 2021-05-12 Test Time: 23:37:12 Pat Name: WARREN CARR Department: Room: 2 Gender: F Rn Gastroenterology: : 1950 Requested By: BHANU BERNABE Order Number: [id number] Reading MD: Burke Macdonald MD Measurements Intervals [place] Rate: 115 P: 49 RI: 134 QRS: 39 QRSD: 78 T: 49 QT: 326 QTc: 453 Interpretive Statements SINUS TACHYCARDIA Electronically Signed On 05-20-2021 8:25:23 PUBLIC POLICY MANAGER by Burke Macdonald MD
[2021-05-13 07:00] VITALS: BP 100/48
--- NOTE | 2021-05-13 08:50 | PDOC ---
HERMAN PARK TRANSIT PLANNING MANAGER 05/13/21 0850: CARDIO Progress Notes Date and Time Date of Service 05/13/21 Time of Evaluation 0840 Subjective Subjective: No Chest Pain, No Palpitations, No Dizziness, Other (SOA improved ) Vitals Vitals Vital Signs Date Time Temp Pulse Resp B/P (MAP) Pulse Ox O2 Delivery O2 Flow Rate FiO2 05/13/21 05:48 98 BiPAP/CPAP 05/13/21 05:24 4.0 05/13/21 05:00 97.9 110 16 112/54 (73) 97.9 Weight Weight [ ] Input and Output Intake and Output Intake and Output 05/13/21 07:00 Intake Total 877 ml Balance 877 ml Intake Oral 100 ml IV Total 777 ml # Voids 1 Laboratory Labs Laboratory Tests Test 05/12/21 23:25 05/12/21 23:50 05/12/21 23:59 05/13/21 00:40 Influenza Type A Antigen Negative (NEGATIVE) Influenza Type B Antigen Negative (NEGATIVE) SARS-CoV-2 Antigen (Rapid) Negative (NEGATIVE) Urine Collection Type U cath Urine Color Esthela Urine Clarity Clear Urine pH 6.0 (<5.0-8.0) Urine Specific [place] 1.015 (1.000-1.030) Urine Protein 30 mg/dL (NEG-TRACE) Urine Glucose (UA) 100 mg/dL (NEG) Urine Ketones (Stick) Negative mg/dL (NEG) Urine Blood Negative (NEG) Urine Nitrite Negative (NEG) Urine Bilirubin Small (NEG) Urine Urobilinogen Dipstick 1.0 mg/dL (0.2 mg/dL) Urine Leukocyte Esterase Negative (NEG) Urine RBC Occ /HPF (0-2) Urine WBC 1-4 /HPF (0-4) Urine Squamous Epithelial Cells Few /LPF Urine Bacteria 0 /HPF (0-FEW) Urine Hyaline Casts Few /HPF Urine Mucus Slight /LPF White Blood Count 13.3 x10^3/uL (4.0-11.0) Red Blood Count 3.60 x10^6/uL (3.50-5.40) Hemoglobin 9.7 g/dL (12.0-15.5) Hematocrit 30.9 % (36.0-47.0) Mean Corpuscular Volume 86 fL (79-100) Mean Corpuscular Hemoglobin 27 pg (25-35) Mean Corpuscular Hemoglobin Concent 32 g/dL (31-37) Red Cell Distribution Width 18.6 % (11.5-14.5) Platelet Count 231 x10^3/uL (140-400) Neutrophils (%) (Auto) 76 % (31-73) Lymphocytes (%) (Auto) 12 % (24-48) Monocytes (%) (Auto) 11 % (0-9) Eosinophils (%) (Auto) 1 % (0-3) Basophils (%) (Auto) 1 % (0-3) Neutrophils # (Auto) 10.2 x10^3/uL (1.8-7.7) Lymphocytes # (Auto) 1.6 x10^3/uL (1.0-4.8) Monocytes # (Auto) 1.4 x10^3/uL (0.0-1.1) Eosinophils # (Auto) 0.1 x10^3/uL (0.0-0.7) Basophils # (Auto) 0.1 x10^3/uL (0.0-0.2) Segmented Neutrophils % 60 % (35-66) Band Neutrophils % 10 % (0-9) Lymphocytes % 12 % (24-48) Atypical Lymphocytes % (Manual) 2 % (0-0) Monocytes % 11 % (0-10) Eosinophils % 2 % (0-5) Metamyelocytes % 3 % (0-0) Platelet Estimate Adequate (ADEQUATE) Giant Platelets Occ Polychromasia Slight Anisocytosis Slight D-Dimer (Katie) 3.15 ug/mlFEU (0.00-0.50) Sodium Level 139 mmol/L (136-145) Potassium Level 4.9 mmol/L (3.5-5.1) Chloride Level 100 mmol/L (98-107) Carbon Dioxide Level 30 mmol/L (21-32) Anion Gap 9 (6-14) Blood Urea Nitrogen 22 mg/dL (7-20) Creatinine 2.2 mg/dL (0.6-1.0) Estimated GFR (Cockcroft-Gault) 22.1 BUN/Creatinine Ratio 10 (6-20) Glucose Level 218 mg/dL (70-99) Lactic Acid Level 2.0 mmol/L (0.4-2.0) Calcium Level 8.6 mg/dL (8.5-10.1) Total Bilirubin 0.6 mg/dL (0.2-1.0) Aspartate Amino Transf (AST/SGOT) 23 U/L (15-37) Alanine Aminotransferase (ALT/SGPT) 24 U/L (14-59) Alkaline Phosphatase 95 U/L (46-116) Troponin I High Sensitivity 121 ng/L (4-50) VY-Hwi-P-Type Natriuretic Peptide 430 pg/mL (0-124) Total Protein 6.2 g/dL (6.4-8.2) Albumin 1.9 g/dL (3.4-5.0) Albumin/Globulin Ratio 0.4 (1.0-1.7) O2 Saturation 90 % (92-99) Arterial Blood pH 7.43 (7.35-7.45) Arterial Blood pCO2 at Patient Temp 38 mmHg (35-46) Arterial Blood pO2 at Patient Temp 60 mmHg (65-108) Arterial Blood HCO3 25 mmol/L (21-28) Arterial Blood Base Excess 1 mmol/L (-3-3) FiO2 Physical Exam HEENT: Neck Supple W Full Motion Chest: Symmetric LUNGS: Other (diminished, on NC) Heart: RRR (SR/ST) Abdomen: Soft N/T Extremities: No Edema Neurology: alert, oriented, follow commands Assessment Assessment This is a 70 yo female who is known to our service from recent hospitalization secondary to COVID PNA and right-sided pneumothorax required chest tube placement. She was discharged back the her facility 4 days ago. She returns to the ED secondary to shortness of breath and hypoxia. She was noted with PVC's, which prompted this consult. She denies any chest pain, palpitations, dizziness, diaphoresis, or nausea/vomiting. Assessment 1. Acute on chronic respiratory failure with AECOPD, PNA. chronic O2 use 2. Recent COVID PNA, right sided pneumothorax requiring chest tube placement 3. Arrhythmia; occasional PVC's. Presently ST/SR 4. Mild troponin elevation; initial high sensitivity trop 121. Most probable type II, demand ischemia in setting of above. Echo 12/24 with preserved LV systolic function 5. Hypertension; controlled 6. Hyperlipidemia; statin 7. CARMELO. 8. ZACK with CPAP 9. Protein calorie malnutrition Recommendations Check Mg, TSH Outpatient echo IV hydration Hold lisinopril. Avoid nephrotoxins Ongoing pulmonary optimization, treatment of PNA Supportive care Justicifation of Admission Dx: Justifications for Admission: Justification of Admission Dx: Yes BALJIT MALHOTRA MD 05/13/211957: CARDIO Progress Notes Assessment Assessment Patient seen and examined. Agree with HEALTH AND WELLNESS INSTRUCTOR's assessment and plan as stated above HERMAN PARK APRN May 13, 2021 08:50 BALJIT MALHOTRA MD May 13, 2021 19:58
[2021-05-13 11:00] VITALS: BP 94/63
[2021-05-13] MEDS ORDERED: LISINOPRIL 20 MG TABLET PO SCH (11:00)
[2021-05-13] MEDS: METOPROLOL TART IMMED RELEASE 25 MG TABLET. PO SCH ×2 (11:00→20:17)
[2021-05-13] MEDS ORDERED: BUDESONIDE 0.5 MG/2 ML NEBU. NEB SCH (11:00)
[2021-05-13] MEDS: buPROPion XL 150 MG TAB.ER.24H. PO SCH (11:45)
[2021-05-13] MEDS: PANTOPRAZOLE 40 MG TABLET.DR. PO SCH (11:45)
[2021-05-13] MEDS: MEMANTINE 10 MG TABLET. PO SCH (11:45)
[2021-05-13] MEDS: CYPROHEPTADINE 4 MG TABLET. PO SCH (11:45)
[2021-05-13] MEDS: MULTIVITAMIN with MINERAL TABLET. PO SCH (11:46)
[2021-05-13] MEDS ORDERED: IPRATRPIUM/ALBUTEROL 0.5/2.5MG 3 ML NEBU. NEB SCH (12:00)
--- NOTE | 2021-05-13 12:14 | NUR ---
SS following for discharge planning. SS reviewed pt chart and discussed with pt RN. Pt is LT resident from [facility] [place], ; fax [phone]. COVID19 positive since 04/26/2021. Pt is currently on BIPAP PRN at 50% and four liters nasal canula. Pulmonology and Cardiology consulted. SS will continue to follow for discharge planning.
--- NOTE | 2021-05-13 12:30 | PDOC ---
PULMONARY PROGRESS NOTES DATE: 05/13/21 TIME: 12:29 Vitals Vital Signs Date Time Temp Pulse Resp B/P (MAP) Pulse Ox O2 Delivery O2 Flow Rate FiO2 05/13/21 07:00 98.4 111 19 100/48 (65) 92 Nasal Cannula 4.0 98.4 General: Alert, No acute distress Lungs: Clear, Other Cardiovascular: S1, Other Abdomen: Soft Extremities: No Edema Labs Laboratory Tests Test 05/12/21 23:25 05/12/21 23:50 05/12/21 23:59 05/13/21 00:40 Influenza Type A Antigen Negative (NEGATIVE) Influenza Type B Antigen Negative (NEGATIVE) SARS-CoV-2 RNA (SALLIE) Positive (Negative) SARS-CoV-2 Antigen (Rapid) Negative (NEGATIVE) Urine Collection Type U cath Urine Color Esthela Urine Clarity Clear Urine pH 6.0 (<5.0-8.0) Urine Specific [place] 1.015 (1.000-1.030) Urine Protein 30 mg/dL (NEG-TRACE) Urine Glucose (UA) 100 mg/dL (NEG) Urine Ketones (Stick) Negative mg/dL (NEG) Urine Blood Negative (NEG) Urine Nitrite Negative (NEG) Urine Bilirubin Small (NEG) Urine Urobilinogen Dipstick 1.0 mg/dL (0.2 mg/dL) Urine Leukocyte Esterase Negative (NEG) Urine RBC Occ /HPF (0-2) Urine WBC 1-4 /HPF (0-4) Urine Squamous Epithelial Cells Few /LPF Urine Bacteria 0 /HPF (0-FEW) Urine Hyaline Casts Few /HPF Urine Mucus Slight /LPF White Blood Count 13.3 x10^3/uL (4.0-11.0) Red Blood Count 3.60 x10^6/uL (3.50-5.40) Hemoglobin 9.7 g/dL (12.0-15.5) Hematocrit 30.9 % (36.0-47.0) Mean Corpuscular Volume 86 fL (79-100) Mean Corpuscular Hemoglobin 27 pg (25-35) Mean Corpuscular Hemoglobin Concent 32 g/dL (31-37) Red Cell Distribution Width 18.6 % (11.5-14.5) Platelet Count 231 x10^3/uL (140-400) Neutrophils (%) (Auto) 76 % (31-73) Lymphocytes (%) (Auto) 12 % (24-48) Monocytes (%) (Auto) 11 % (0-9) Eosinophils (%) (Auto) 1 % (0-3) Basophils (%) (Auto) 1 % (0-3) Neutrophils # (Auto) 10.2 x10^3/uL (1.8-7.7) Lymphocytes # (Auto) 1.6 x10^3/uL (1.0-4.8) Monocytes # (Auto) 1.4 x10^3/uL (0.0-1.1) Eosinophils # (Auto) 0.1 x10^3/uL (0.0-0.7) Basophils # (Auto) 0.1 x10^3/uL (0.0-0.2) Segmented Neutrophils % 60 % (35-66) Band Neutrophils % 10 % (0-9) Lymphocytes % 12 % (24-48) Atypical Lymphocytes % (Manual) 2 % (0-0) Monocytes % 11 % (0-10) Eosinophils % 2 % (0-5) Metamyelocytes % 3 % (0-0) Platelet Estimate Adequate (ADEQUATE) Giant Platelets Occ Polychromasia Slight Anisocytosis Slight D-Dimer (Katie) 3.15 ug/mlFEU (0.00-0.50) Sodium Level 139 mmol/L (136-145) Potassium Level 4.9 mmol/L (3.5-5.1) Chloride Level 100 mmol/L (98-107) Carbon Dioxide Level 30 mmol/L (21-32) Anion Gap 9 (6-14) Blood Urea Nitrogen 22 mg/dL (7-20) Creatinine 2.2 mg/dL (0.6-1.0) Estimated GFR (Cockcroft-Gault) 22.1 BUN/Creatinine Ratio 10 (6-20) Glucose Level 218 mg/dL (70-99) Lactic Acid Level 2.0 mmol/L (0.4-2.0) Calcium Level 8.6 mg/dL (8.5-10.1) Total Bilirubin 0.6 mg/dL (0.2-1.0) Aspartate Amino Transf (AST/SGOT) 23 U/L (15-37) Alanine Aminotransferase (ALT/SGPT) 24 U/L (14-59) Alkaline Phosphatase 95 U/L (46-116) Troponin I High Sensitivity 121 ng/L (4-50) PC-Lgl-R-Type Natriuretic Peptide 430 pg/mL (0-124) Total Protein 6.2 g/dL (6.4-8.2) Albumin 1.9 g/dL (3.4-5.0) Albumin/Globulin Ratio 0.4 (1.0-1.7) O2 Saturation 90 % (92-99) Arterial Blood pH 7.43 (7.35-7.45) Arterial Blood pCO2 at Patient Temp 38 mmHg (35-46) Arterial Blood pO2 at Patient Temp 60 mmHg (65-108) Arterial Blood HCO3 25 mmol/L (21-28) Arterial Blood Base Excess 1 mmol/L (-3-3) FiO2 Laboratory Tests Test 05/12/21 23:25 05/12/21 23:50 05/12/21 23:59 05/13/21 00:40 Influenza Type A Antigen Negative (NEGATIVE) Influenza Type B Antigen Negative (NEGATIVE) SARS-CoV-2 RNA (SALLIE) Positive (Negative) SARS-CoV-2 Antigen (Rapid) Negative (NEGATIVE) Urine Collection Type U cath Urine Color Esthela Urine Clarity Clear Urine pH 6.0 (<5.0-8.0) Urine Specific [place] 1.015 (1.000-1.030) Urine Protein 30 mg/dL (NEG-TRACE) Urine Glucose (UA) 100 mg/dL (NEG) Urine Ketones (Stick) Negative mg/dL (NEG) Urine Blood Negative (NEG) Urine Nitrite Negative (NEG) Urine Bilirubin Small (NEG) Urine Urobilinogen Dipstick 1.0 mg/dL (0.2 mg/dL) Urine Leukocyte Esterase Negative (NEG) Urine RBC Occ /HPF (0-2) Urine WBC 1-4 /HPF (0-4) Urine Squamous Epithelial Cells Few /LPF Urine Bacteria 0 /HPF (0-FEW) Urine Hyaline Casts Few /HPF Urine Mucus Slight /LPF White Blood Count 13.3 x10^3/uL (4.0-11.0) Red Blood Count 3.60 x10^6/uL (3.50-5.40) Hemoglobin 9.7 g/dL (12.0-15.5) Hematocrit 30.9 % (36.0-47.0) Mean Corpuscular Volume 86 fL (79-100) Mean Corpuscular Hemoglobin 27 pg (25-35) Mean Corpuscular Hemoglobin Concent 32 g/dL (31-37) Red Cell Distribution Width 18.6 % (11.5-14.5) Platelet Count 231 x10^3/uL (140-400) Neutrophils (%) (Auto) 76 % (31-73) Lymphocytes (%) (Auto) 12 % (24-48) Monocytes (%) (Auto) 11 % (0-9) Eosinophils (%) (Auto) 1 % (0-3) Basophils (%) (Auto) 1 % (0-3) Neutrophils # (Auto) 10.2 x10^3/uL (1.8-7.7) Lymphocytes # (Auto) 1.6 x10^3/uL (1.0-4.8) Monocytes # (Auto) 1.4 x10^3/uL (0.0-1.1) Eosinophils # (Auto) 0.1 x10^3/uL (0.0-0.7) Basophils # (Auto) 0.1 x10^3/uL (0.0-0.2) Segmented Neutrophils % 60 % (35-66) Band Neutrophils % 10 % (0-9) Lymphocytes % 12 % (24-48) Atypical Lymphocytes % (Manual) 2 % (0-0) Monocytes % 11 % (0-10) Eosinophils % 2 % (0-5) Metamyelocytes % 3 % (0-0) Platelet Estimate Adequate (ADEQUATE) Giant Platelets Occ Polychromasia Slight Anisocytosis Slight D-Dimer (Katie) 3.15 ug/mlFEU (0.00-0.50) Sodium Level 139 mmol/L (136-145) Potassium Level 4.9 mmol/L (3.5-5.1) Chloride Level 100 mmol/L (98-107) Carbon Dioxide Level 30 mmol/L (21-32) Anion Gap 9 (6-14) Blood Urea Nitrogen 22 mg/dL (7-20) Creatinine 2.2 mg/dL (0.6-1.0) Estimated GFR (Cockcroft-Gault) 22.1 BUN/Creatinine Ratio 10 (6-20) Glucose Level 218 mg/dL (70-99) Lactic Acid Level 2.0 mmol/L (0.4-2.0) Calcium Level 8.6 mg/dL (8.5-10.1) Total Bilirubin 0.6 mg/dL (0.2-1.0) Aspartate Amino Transf (AST/SGOT) 23 U/L (15-37) Alanine Aminotransferase (ALT/SGPT) 24 U/L (14-59) Alkaline Phosphatase 95 U/L (46-116) Troponin I High Sensitivity 121 ng/L (4-50) QP-Kta-I-Type Natriuretic Peptide 430 pg/mL (0-124) Total Protein 6.2 g/dL (6.4-8.2) Albumin 1.9 g/dL (3.4-5.0) Albumin/Globulin Ratio 0.4 (1.0-1.7) O2 Saturation 90 % (92-99) Arterial Blood pH 7.43 (7.35-7.45) Arterial Blood pCO2 at Patient Temp 38 mmHg (35-46) Arterial Blood pO2 at Patient Temp 60 mmHg (65-108) Arterial Blood HCO3 25 mmol/L (21-28) Arterial Blood Base Excess 1 mmol/L (-3-3) FiO2 Medications Active Scripts Medications Dose Route/Sig Max Daily Dose Days Date Category Milk Of Magnesia (Magnesium Hydroxide) 2,400 Mg/10 Ml Oral.susp 2,400 Mg PO DAILY 05/13/21 Reported Multi Vitamin Daily (Multivitamin) 1 Each Tablet 1 Tab PO DAILY 30 05/13/21 Reported Metoprolol Tartrate 25 Mg Tablet 25 Mg PO BID 30 05/09/21 Rx Budesonide 0.5 Mg/2 Ml Ampul.neb 0.5 Mg NEB RTBID 30 12/05/20 Rx Atorvastatin Calcium 10 Mg Tablet 10 Mg PO QHS 30 12/05/20 Rx Tylenol (Acetaminophen) 325 Mg Tablet 1-2 Tab PO PRN Q4-6HRS PRN 12/03/20 Reported Multi Vitamin Daily (Multivitamin) 1 Each Tablet 1 Tab PO DAILY 30 12/03/20 Reported Anoro Ellipta 62.5-25 Mcg Inh (Umeclidinium Brm/Vilanterol Tr) 1 Each Disk.w.dev 1 Each IH DAILY 12/03/20 Reported Namenda (Memantine Hcl) 10 Mg Tablet 5 Mg PO DAILY 12/03/20 Reported [Oxygen] 4 L DAILY 12/03/20 Reported Duoneb 0.5-3(2.5) Mg/3 Ml (Albuterol/Ipratropium) 3 Ml Ampul.neb 3 Ml NEB QID 12/03/20 Reported Melatonin 10 Mg Tab.rapdis 1 Tab PO QHS 30 12/03/20 Reported Cyproheptadine Hcl 4 Mg Tablet 4 Mg PO DAILY 12/03/20 Reported Bupropion Xl (Bupropion Hcl) 300 Mg Tab.er.24h 300 Mg PO DAILY 12/03/20 Reported Protonix (Pantoprazole Sodium) 20 Mg Tablet.dr 40 Mg PO DAILY 12/03/20 Reported Amlodipine Besylate 5 Mg Tablet 5 Mg PO DAILY 12/03/20 Reported Lisinopril 20 Mg Tablet 1 Tab PO DAILY 12/03/20 Reported Impression . Acute hypoxemic respiratory failure multifactorial suspect may be mainly bacterial pneumonia Continue current support for LEANDRO CONSTANTINO MD May 13, 2021 12:29
[2021-05-13] MEDS ORDERED: ALBUTEROL SULFATE 8GM INHALER. INH PRN (12:45)
[2021-05-13 15:00] VITALS: BP 137/64
--- NOTE | 2021-05-13 15:30 | CONS ---
DATE OF CONSULTATION: 05/13/2021 ATTENDING PHYSICIAN: Amilcar Pino MD. REASON FOR CONSULTATION: The patient presented from nursing facility with hypoxemia and shortness of breath. The patient was released from the hospital approximately 3 days ago. She had COVID-19 viral pneumonia, left-sided pneumothorax. Chest tube was removed. She now presents for increasing shortness of breath. She wears normally 2 liters. She had saturations of 84%. EMS upon arrival, found saturations below and they placed on a nonrebreather. She was utilizing a BiPAP. She is awake, alert. She has a cough productive of discolored sputum mixed in with some blood. She denies fever, chills or night sweats. PAST MEDICAL HISTORY: 1. As indicated above, recent admission for COVID-19 viral pneumonia, respiratory failure, complicated with pneumothorax. She had a chest tube in place. 2. COPD. 3. Chronic respiratory failure. 4. Hypertension. 5. Hyperlipidemia. PAST SURGICAL HISTORY: Previous chest tube. ALLERGIES: CODEINE AND TIOTROPIUM. REVIEW OF SYSTEMS: As indicated above, otherwise a 10-point system was reviewed and negative. CURRENT MEDICATIONS: List was reviewed. She is receiving vancomycin, budesonide, cefepime and other medications. PHYSICAL EXAMINATION: VITAL SIGNS: Stable. O2 saturation greater than 92%, currently on 4 liters. At one time, she was on 15 liter flow. HEENT: Eyes: The sclerae were nonicteric. NECK: Jugular venous distention was not elevated. No lymphadenopathy. CHEST: Full expansion. LUNGS: Rales throughout both lung bhatt. CARDIOVASCULAR: Regular rate and rhythm with S1, S2, no S3. ABDOMEN: Soft. EXTREMITIES: No clubbing, cyanosis or edema. LABORATORY DATA: Chest x-ray was reviewed. There are pulmonary infiltrates, which appeared to be slightly worse than last time. White count was elevated. Electrolytes were noted. BUN was 22, creatinine was 2.2. Arterial blood gas; pH of 7.43, PaCO2 of 38, pO2 of 60. IMPRESSION: 1. Acute hypoxemic respiratory failure, multifactorial. 2. Abnormal x-ray. 3. Possible gram-negative, gram-positive pneumonia. 4. Recovered from COVID-19. 5. Continued SARS-CoV-2 positivity, I do not think that the patient has an active infection. 6. Acute renal failure. DISCUSSION: The patient presented with increasing shortness of breath and abnormal x-ray, which has worsened since her last admission. She continues to be positive for SARS-CoV-2, I do not think that she is actively infected with SARS-CoV-2. I think we are dealing mainly with a healthcare-associated pneumonia, gram-positive, gram-negative. PLAN: 1. Continue oxygen supplementation. 2. PRN BiPAP. 3. Empiric antibiotics. 4. IV fluids, the patient presented with acute renal failure. 5. Steroids. 6. Nebulized treatments. 7. Anticoagulation. I do appreciate the privilege in sharing in the patient's care. STEPHEN/KYLIE DR: Carolyne TID: [id number]
[2021-05-13] MEDS: VANCOMYCIN PER PHARMACY MC PRN (15:38)
--- NOTE | 2021-05-13 15:39 | NUR ---
Pharmacy Vancomycin Dosing Note S:Consulted to monitor and dose vancomycin started 05/13/21. O:WARREN CARR is a 70 year old F with HCAP. Height: 5 feet, 3 inches Weight: 49.5 kg [place] Body Weight: 52.40 Adjusted Body Weight: 51.24 Dosing Weight: Actual Other Antibiotics: CEFEPIME LABS: Last BUN: 22 Last Creatinine: 2.2 Creatinine Clearance: 18 mL/min Last WBC: 13.3 Last Procalcitonin: -- Tmax (past 24 hours): AFEBRILE Microbiology: I/O: 877/-- Last dose given 05/13/21 at 0246 Vancomycin Dosing: Loading Dose: 1250 mg x1 Dosing Weight: Actual Target Trough: 15-20 A: Based on: patient's age, weight and renal function. P: 1. Begin vancomycin 750 mg q48h after initial loading dose. 2. Follow up Trough level on 05/17/21 at 0530. 3. Pharmacy will continue to monitor, follow and adjust therapy as needed. CLAIR LINDSEY [facility], 05/13/21 [id number]
[2021-05-13] MEDS: ENOXAPARIN 30 MG/0.3 ML SYRINGE. SQ SCH (16:50)
--- NOTE | 2021-05-13 17:46 | HP ---
DATE OF SERVICE: 05/13/2021 ADMIT DATE: 05/13/2021 ADMISSION HISTORY AND PHYSICAL LOCATION: She is in room 652. CHIEF COMPLAINT AND HISTORY OF PRESENT ILLNESS: This 70-year-old female well known to me from hospitalization and discharge a few days ago [facility] point [facility]. She was hospitalized for COVID-19 pneumonia, left pneumothorax, which was slow to resolve. She left the hospital on 6 liters per nasal cannula O2. She had worsening hypoxia and shortness of breath evening prior to admission back to the hospital where she was found to have worsening pneumonia on chest x-ray, acute kidney injury with creatinine up to 2.2 where her baseline was 1 on prior discharge and was quite hypoxic, satting 84% on 6 liters on EMS arrival. The patient was placed on nonrebreather in the Emergency Room and improved to 100%. PAST MEDICAL HISTORY: Remarkable for COPD, recent COVID, recent pneumothorax with chest tube. PAST SURGICAL HISTORY: She has no prior surgical history. MEDICATIONS: Brought with the patient, listed on the computer have been addressed. ALLERGIES: SHE IS ALLERGIC TO CODEINE AND TIOTROPIUM. SOCIAL HISTORY: Noncontributory. FAMILY HISTORY: Noncontributory. REVIEW OF SYSTEMS: Remarkable for her feeling somewhat better this morning, but still more short of breath as well as more cough than she had few days ago. PHYSICAL EXAMINATION: GENERAL: She is a well-developed, well-nourished female in no acute distress at rest. She does have a BiPAP on currently. HEAD, EYES, EARS, NOSE AND THROAT: Unremarkable. NECK: Supple, without adenopathy or thyromegaly. CHEST: Reveals decreased breath sounds, but clear. HEART: Regular rate and rhythm without S3, S4 or murmur. ABDOMEN: Soft, nontender, without hepatosplenomegaly or mass. EXTREMITIES: Without cyanosis, clubbing or edema. NEUROLOGIC: She is intact. LABORATORY DATA: Initial white count is 13,300 with left shift, which is actually somewhat improved from last discharge; however, creatinine is up to 2.2 from 1. She has severe protein-calorie malnutrition with an albumin of 1.9. D-dimer is elevated at 3.15 and COVID testing is not surprisingly still positive. Chest x-ray shows pulmonary infiltrates to be mildly worsened with atypical pneumonia. ASSESSMENT: 1. Acute hypoxic respiratory failure on top of chronic respiratory failure. 2. Severe chronic obstructive pulmonary disease. 3. Pneumonia. 4. Acute kidney injury. PLAN: Admission, IV antibiotics, hydration. Pulmonary consultation with plans to follow. DENISA DR: Mary TID: [id number]
[2021-05-13] MEDS: FLUTICASONE/VILANTEROL 100/25 INHALER. INH SCH (18:07)
[2021-05-13 19:22] VITALS: BP 112/59
[2021-05-13] MEDS: ATORVASTATIN CALCIUM 10 MG TABLET. PO SCH (20:17)
[2021-05-13] MEDS: CEFEPIME HCL IV Push 1 GM VIAL. IVP SCH (20:20)
[2021-05-13] MEDS ORDERED: NON FORMULARY ITEM (Melatonin 1 TAB) PO SCH (21:00)
[2021-05-13 22:19] VITALS: BP 112/60
[2021-05-14 02:28] VITALS: BP 96/49
[2021-05-14] MEDS: PANTOPRAZOLE 40 MG TABLET.DR. PO SCH (05:45)
[2021-05-14 05:58] LABS: CALCIUM 7.6 mg/dL (8.5-10.1); CREATININE 1.6 mg/dL (0.6-1.0); GFR 31.9; POTASSIUM 4.9 mmol/L (3.5-5.1)
[2021-05-14 06:04] LABS: CHOLESTEROL/HDL RATIO 2.8
[2021-05-14 07:00] VITALS: BP 117/61
[2021-05-14] MEDS: VANCOMYCIN PER PHARMACY MC PRN (07:31)
--- NOTE | 2021-05-14 08:15 | PDOC ---
HERMAN PARK CANDY SEPARATOR HARD 05/14/21 0815: CARDIO Progress Notes Date and Time Date of Service 05/14/21 Time of Evaluation 1020 Subjective Subjective: No Chest Pain, No Palpitations, No Dizziness, Other (SOA improved, feeling better today ) Vitals Vitals Vital Signs Date Time Temp Pulse Resp B/P (MAP) Pulse Ox O2 Delivery O2 Flow Rate FiO2 05/14/21 07:00 98.0 93 18 117/61 (79) 93 Nasal Cannula 4.0 98.0 Weight Weight [ ] Input and Output Intake and Output Intake and Output 05/14/21 07:00 Intake Total 760 ml Output Total 400 ml Balance 360 ml Intake Oral 760 ml Output Urine Total 400 ml # Voids 4 Laboratory Labs Laboratory Tests Test 05/13/21 17:30 05/14/21 04:35 05/14/21 04:55 Magnesium Level 1.6 mg/dL (1.8-2.4) Troponin I High Sensitivity 125 ng/L (4-50) Thyroid Stimulating Hormone (TSH) 0.111 uIU/mL (0.358-3.74) Sodium Level 145 mmol/L (136-145) Potassium Level 4.9 mmol/L (3.5-5.1) Chloride Level 108 mmol/L (98-107) Carbon Dioxide Level 28 mmol/L (21-32) Anion Gap 9 (6-14) Blood Urea Nitrogen 23 mg/dL (7-20) Creatinine 1.6 mg/dL (0.6-1.0) Estimated GFR (Cockcroft-Gault) 31.9 Glucose Level 256 mg/dL (70-99) Calcium Level 7.6 mg/dL (8.5-10.1) Triglycerides Level 79 mg/dL (0-150) Cholesterol Level 111 mg/dL (0-200) LDL Cholesterol, Calculated 55 mg/dL (0-100) VLDL Cholesterol, Calculated 16 mg/dL (0-40) Non-HDL Cholesterol Calculated 71 mg/dL (0-129) HDL Cholesterol 40 mg/dL (40-60) Cholesterol/HDL Ratio 2.8 Procalcitonin 0.47 ng/mL (0.00-0.10) Physical Exam HEENT: Neck Supple W Full Motion Chest: Symmetric LUNGS: Other (diminished, on NC) Heart: RRR (SR) Abdomen: Soft N/T Extremities: No Edema Neurology: alert, oriented, follow commands Assessment Assessment 1. Acute on chronic respiratory failure with AECOPD, PNA. chronic O2 use 2. Recent COVID PNA, right sided pneumothorax requiring chest tube placement 3. Arrhythmia; occasional PVC's. Presently SR 4. Mild troponin elevation; initial high sensitivity trop 121. Most probable type II, demand ischemia in setting of above. Echo 12/24 with preserved LV systolic function 5. Hypertension; controlled 6. Hyperlipidemia; statin 7. CARMELO; Cr improved s/p hydration 8. ZACK with CPAP 9. Protein calorie malnutrition 10. Hyperthyroidism; as per IM 11. Hypomagnesemia Recommendations Replace Mg Encourage adequate oral hydration Hold lisinopril. Avoid nephrotoxins Ongoing pulmonary optimization, treatment of PNA Outpatient echo Supportive care from a CV standpoint Justicifation of Admission Dx: Justifications for Admission: Justification of Admission Dx: Yes BALJIT MALHOTRA MD 05/15/21 0849: CARDIO Progress Notes Assessment Assessment Patient seen and examined 05/14/2021. Agree with AMUSEMENT CENTRE MANAGER's assessment and plan as stated above. HERMAN PARK APRN May 14, 2021 08:15 BALJIT MALHOTRA MD May 15, 2021 08:49
[2021-05-14] MEDS: MAGNESIUM HYDROXIDE 2,400 MG/30 ML ORAL.SUSP. PO SCH (08:39)
[2021-05-14] MEDS: ASPIRIN ENTERIC COATED 81 MG TABLET.DR. PO SCH (08:40)
[2021-05-14] MEDS: MULTIVITAMIN with MINERAL TABLET. PO SCH (08:40)
[2021-05-14] MEDS: buPROPion XL 150 MG TAB.ER.24H. PO SCH (08:41)
[2021-05-14] MEDS: CYPROHEPTADINE 4 MG TABLET. PO SCH (08:41)
[2021-05-14] MEDS: FLUTICASONE/VILANTEROL 100/25 INHALER. INH SCH (08:42)
[2021-05-14] MEDS: MEMANTINE 10 MG TABLET. PO SCH (08:42)
[2021-05-14] MEDS: METOPROLOL TART IMMED RELEASE 25 MG TABLET. PO SCH ×2 (08:42→21:31)
[2021-05-14] MEDS: LACTOBACILLUS RHAMNOSUS GG 1 CAPSULE. PO SCH ×2 (08:42→21:30)
[2021-05-14] MEDS: CEFEPIME HCL IV Push 1 GM VIAL. IVP SCH ×2 (08:47→22:05)
[2021-05-14] MEDS ORDERED: NON FORMULARY ITEM (Multivitamin (Multi Vitamin Daily) 1 TAB) PO SCH (09:00)
[2021-05-14] MEDS ORDERED: OXYGEN SCH (09:00)
[2021-05-14] MEDS ORDERED: NON FORMULARY ITEM (Umeclidinium Brm/Vilanterol Tr (Anoro Ellipta 62.5-25 Mcg Inh) 1 EACH) IH SCH (09:00)
--- NOTE | 2021-05-14 10:48 | PDOC ---
PULMONARY PROGRESS NOTES DATE: 05/14/21 TIME: 10:41 Subjective patient seen sitting up in bed, comfortable on 4L NC. talkative, denies pain or shortness of breath at this time. Vitals Vital Signs Date Time Temp Pulse Resp B/P (MAP) Pulse Ox O2 Delivery O2 Flow Rate FiO2 05/14/21 08:42 93 117/61 05/14/21 07:00 98.0 18 93 Nasal Cannula 4.0 98.0 General: Alert, No acute distress Lungs: Clear, Other Cardiovascular: S1, Other Abdomen: Soft Extremities: No Edema Labs Laboratory Tests Test 05/12/21 23:25 05/12/21 23:50 05/12/21 23:59 05/13/21 00:40 Influenza Type A Antigen Negative (NEGATIVE) Influenza Type B Antigen Negative (NEGATIVE) SARS-CoV-2 RNA (SALLIE) Positive (Negative) SARS-CoV-2 Antigen (Rapid) Negative (NEGATIVE) Urine Collection Type U cath Urine Color Esthela Urine Clarity Clear Urine pH 6.0 (<5.0-8.0) Urine Specific Phillips 1.015 (1.000-1.030) Urine Protein 30 mg/dL (NEG-TRACE) Urine Glucose (UA) 100 mg/dL (NEG) Urine Ketones (Stick) Negative mg/dL (NEG) Urine Blood Negative (NEG) Urine Nitrite Negative (NEG) Urine Bilirubin Small (NEG) Urine Urobilinogen Dipstick 1.0 mg/dL (0.2 mg/dL) Urine Leukocyte Esterase Negative (NEG) Urine RBC Occ /HPF (0-2) Urine WBC 1-4 /HPF (0-4) Urine Squamous Epithelial Cells Few /LPF Urine Bacteria 0 /HPF (0-FEW) Urine Hyaline Casts Few /HPF Urine Mucus Slight /LPF White Blood Count 13.3 x10^3/uL (4.0-11.0) Red Blood Count 3.60 x10^6/uL (3.50-5.40) Hemoglobin 9.7 g/dL (12.0-15.5) Hematocrit 30.9 % (36.0-47.0) Mean Corpuscular Volume 86 fL (79-100) Mean Corpuscular Hemoglobin 27 pg (25-35) Mean Corpuscular Hemoglobin Concent 32 g/dL (31-37) Red Cell Distribution Width 18.6 % (11.5-14.5) Platelet Count 231 x10^3/uL (140-400) Neutrophils (%) (Auto) 76 % (31-73) Lymphocytes (%) (Auto) 12 % (24-48) Monocytes (%) (Auto) 11 % (0-9) Eosinophils (%) (Auto) 1 % (0-3) Basophils (%) (Auto) 1 % (0-3) Neutrophils # (Auto) 10.2 x10^3/uL (1.8-7.7) Lymphocytes # (Auto) 1.6 x10^3/uL (1.0-4.8) Monocytes # (Auto) 1.4 x10^3/uL (0.0-1.1) Eosinophils # (Auto) 0.1 x10^3/uL (0.0-0.7) Basophils # (Auto) 0.1 x10^3/uL (0.0-0.2) Segmented Neutrophils % 60 % (35-66) Band Neutrophils % 10 % (0-9) Lymphocytes % 12 % (24-48) Atypical Lymphocytes % (Manual) 2 % (0-0) Monocytes % 11 % (0-10) Eosinophils % 2 % (0-5) Metamyelocytes % 3 % (0-0) Platelet Estimate Adequate (ADEQUATE) Giant Platelets Occ Polychromasia Slight Anisocytosis Slight D-Dimer (Katie) 3.15 ug/mlFEU (0.00-0.50) Sodium Level 139 mmol/L (136-145) Potassium Level 4.9 mmol/L (3.5-5.1) Chloride Level 100 mmol/L (98-107) Carbon Dioxide Level 30 mmol/L (21-32) Anion Gap 9 (6-14) Blood Urea Nitrogen 22 mg/dL (7-20) Creatinine 2.2 mg/dL (0.6-1.0) Estimated GFR (Cockcroft-Gault) 22.1 BUN/Creatinine Ratio 10 (6-20) Glucose Level 218 mg/dL (70-99) Lactic Acid Level 2.0 mmol/L (0.4-2.0) Calcium Level 8.6 mg/dL (8.5-10.1) Total Bilirubin 0.6 mg/dL (0.2-1.0) Aspartate Amino Transf (AST/SGOT) 23 U/L (15-37) Alanine Aminotransferase (ALT/SGPT) 24 U/L (14-59) Alkaline Phosphatase 95 U/L (46-116) Troponin I High Sensitivity 121 ng/L (4-50) JA-Zbp-[id number]-Type Natriuretic Peptide 430 pg/mL (0-124) Total Protein 6.2 g/dL (6.4-8.2) Albumin 1.9 g/dL (3.4-5.0) Albumin/Globulin Ratio 0.4 (1.0-1.7) O2 Saturation 90 % (92-99) Arterial Blood pH 7.43 (7.35-7.45) Arterial Blood pCO2 at Patient Temp 38 mmHg (35-46) Arterial Blood pO2 at Patient Temp 60 mmHg (65-108) Arterial Blood HCO3 25 mmol/L (21-28) Arterial Blood Base Excess 1 mmol/L (-3-3) FiO2 Test 05/13/21 17:30 05/14/21 04:35 05/14/21 04:55 Magnesium Level 1.6 mg/dL (1.8-2.4) Troponin I High Sensitivity 125 ng/L (4-50) Thyroid Stimulating Hormone (TSH) 0.111 uIU/mL (0.358-3.74) Sodium Level 145 mmol/L (136-145) Potassium Level 4.9 mmol/L (3.5-5.1) Chloride Level 108 mmol/L (98-107) Carbon Dioxide Level 28 mmol/L (21-32) Anion Gap 9 (6-14) Blood Urea Nitrogen 23 mg/dL (7-20) Creatinine 1.6 mg/dL (0.6-1.0) Estimated GFR (Cockcroft-Gault) 31.9 Glucose Level 256 mg/dL (70-99) Calcium Level 7.6 mg/dL (8.5-10.1) Triglycerides Level 79 mg/dL (0-150) Cholesterol Level 111 mg/dL (0-200) LDL Cholesterol, Calculated 55 mg/dL (0-100) VLDL Cholesterol, Calculated 16 mg/dL (0-40) Non-HDL Cholesterol Calculated 71 mg/dL (0-129) HDL Cholesterol 40 mg/dL (40-60) Cholesterol/HDL Ratio 2.8 Procalcitonin 0.47 ng/mL (0.00-0.10) Laboratory Tests Test 05/13/21 17:30 05/14/21 04:35 05/14/21 04:55 Magnesium Level 1.6 mg/dL (1.8-2.4) Troponin I High Sensitivity 125 ng/L (4-50) Thyroid Stimulating Hormone (TSH) 0.111 uIU/mL (0.358-3.74) Sodium Level 145 mmol/L (136-145) Potassium Level 4.9 mmol/L (3.5-5.1) Chloride Level 108 mmol/L (98-107) Carbon Dioxide Level 28 mmol/L (21-32) Anion Gap 9 (6-14) Blood Urea Nitrogen 23 mg/dL (7-20) Creatinine 1.6 mg/dL (0.6-1.0) Estimated GFR (Cockcroft-Gault) 31.9 Glucose Level 256 mg/dL (70-99) Calcium Level 7.6 mg/dL (8.5-10.1) Triglycerides Level 79 mg/dL (0-150) Cholesterol Level 111 mg/dL (0-200) LDL Cholesterol, Calculated 55 mg/dL (0-100) VLDL Cholesterol, Calculated 16 mg/dL (0-40) Non-HDL Cholesterol Calculated 71 mg/dL (0-129) HDL Cholesterol 40 mg/dL (40-60) Cholesterol/HDL Ratio 2.8 Procalcitonin 0.47 ng/mL (0.00-0.10) Medications Active Scripts Medications Dose Route/Sig Max Daily Dose Days Date Category Milk Of Magnesia (Magnesium Hydroxide) 2,400 Mg/10 Ml Oral.susp 2,400 Mg PO DAILY 05/13/21 Reported Multi Vitamin Daily (Multivitamin) 1 Each Tablet 1 Tab PO DAILY 30 05/13/21 Reported Metoprolol Tartrate 25 Mg Tablet 25 Mg PO BID 30 05/09/21 Rx Budesonide 0.5 Mg/2 Ml Ampul.neb 0.5 Mg NEB RTBID 30 12/05/20 Rx Atorvastatin Calcium 10 Mg Tablet 10 Mg PO QHS 12/05/20 Rx Tylenol (Acetaminophen) 325 Mg Tablet 1-2 Tab PO PRN Q4-6HRS PRN 12/03/20 Reported Multi Vitamin Daily (Multivitamin) 1 Each Tablet 1 Tab PO DAILY 30 12/03/20 Reported Anoro Ellipta 62.5-25 Mcg Inh (Umeclidinium Brm/Vilanterol Tr) 1 Each Disk.w.dev 1 Each IH DAILY 12/03/20 Reported Namenda (Memantine Hcl) 10 Mg Tablet 5 Mg PO DAILY 12/03/20 Reported [Oxygen] 4 L DAILY 12/03/20 Reported Duoneb 0.5-3(2.5) Mg/3 Ml (Albuterol/Ipratropium) 3 Ml Ampul.neb 3 Ml NEB QID 12/03/20 Reported Melatonin 10 Mg Tab.rapdis 1 Tab PO QHS 30 12/03/20 Reported Cyproheptadine Hcl 4 Mg Tablet 4 Mg PO DAILY 12/03/20 Reported Bupropion Xl (Bupropion Hcl) 300 Mg Tab.er.24h 300 Mg PO DAILY 12/03/20 Reported Protonix (Pantoprazole Sodium) 20 Mg Tablet.dr 40 Mg PO DAILY 12/03/20 Reported Amlodipine Besylate 5 Mg Tablet 5 Mg PO DAILY 12/03/20 Reported Lisinopril 20 Mg Tablet 1 Tab PO DAILY 12/03/20 Reported Impression . IMPRESSION: 1. Acute hypoxemic respiratory failure, multifactorial. 2. Abnormal x-ray. 3. Possible gram-negative, gram-positive pneumonia. 4. Recovered from COVID-19. 5. Continued SARS-CoV-2 positivity, I do not think that the patient has an active infection. 6. Acute renal failure. DISCUSSION: The patient presented with increasing shortness of breath and abnormal x-ray, which has worsened since her last admission. She continues to be positive for SARS-CoV-2, I do not think that she is actively infected with SARS-CoV-2. I think we are dealing mainly with a healthcare-associated pneumonia, gram-positive, gram-negative. Plan . 05/14 continue on oxygen, titrate as able PRN BIPAP, has not needed empiric anbx, Vanc and Cefepime dvt prophylaxis PLAN 05/13: 1. Continue oxygen supplementation. 2. PRN BiPAP. 3. Empiric antibiotics. 4. IV fluids, the patient presented with acute renal failure. 5. Steroids. 6. Nebulized treatments. 7. Anticoagulation. LEANDRO CONSTANTINO MD May 14, 2021 10:48
[2021-05-14 11:00] VITALS: BP 96/64
--- NOTE | 2021-05-14 11:21 | NUR ---
SS following up with discharge planning. SS reviewed pt chart and discussed with pt RN. Pt is LTC resident from [place], ; fax [phone]. COVID19 positive since 04/26/2021. Pt is currently requiring oxygen at four liters nasal canula. Pt on IV Cefepime and PO Zyvox. Pulmonology and Cardiology following. SS will continue to follow for discharge planning.
--- NOTE | 2021-05-14 12:06 | CONS ---
DATE OF CONSULTATION: 05/14/2021 REFERRING PHYSICIAN: Amilcar Pino MD REASON FOR CONSULTATION: COVID-19 pneumonia. HISTORY OF PRESENT ILLNESS: A 70-year-old female just recently [facility], returned due to worsening shortness of breath, cough, and sputum with blood tinged expectorant. The patient was hospitalized from 04/26/2021 to 05/09/2021. COVID antigen was positive on 04/26/2021. Upon arrival in the ER, the patient was hypoxic, was started on O2, was on 6 liters, currently on 4 liters, which is at baseline. She was afebrile. White count was 13.3. UA showed 1-4 wbc's. She had CARMELO with creatinine of 2.2, today is 1.6. Chest x-ray revealed pulmonary infiltrates, mildly worsened with atypical pneumonia. The patient was started on vancomycin and cefepime. ID consultation has been requested for antibiotic management. Of note, the patient also had right pneumothorax, large requiring CDS placement last admission, which was discontinued upon discharge. The patient denies any fevers, nausea, vomiting, sore throat, diarrhea, abdominal pain, chest pain. Continues to have cough as above. REVIEW OF SYSTEMS: Negative except for above in HPI. PAST MEDICAL HISTORY: Chronic respiratory failure, on home O2 at 4 liters, COPD, hypertension, hyperlipidemia, recent COVID-19 pneumonia complicated by right pneumothorax, requiring chest tube in place, which was removed prior to discharge. PAST SURGICAL HISTORY: Previous chest tube. ALLERGIES: CODEINE, TIOTROPIUM. CURRENT MEDICATIONS: Vancomycin, cefepime. Other medications reviewed in medication list. PHYSICAL EXAMINATION: VITAL SIGNS: Temperature 98, pulse 93, respiratory rate 18, blood pressure 117/61, oxygen saturation 93% on 4 liters O2 by nasal cannula. GENERAL: Alert, oriented x 3, pleasant female, lying in bed comfortably, in no acute distress, nontoxic appearing on 4 liters O2 by nasal cannula. HEENT: Normocephalic, atraumatic. Anicteric. Oral mucosa moist. NECK: Supple. LUNGS: Decreased breath sounds, few crackles. No accessory muscle use. No wheezing. HEART: S1, S2. No murmurs. ABDOMEN: Soft, nontender, nondistended. No rebound or guarding. EXTREMITIES: No edema, no cyanosis. DERMATOLOGIC: Warm, dry, no generalized rash. NEUROLOGIC: Alert, oriented x 3, grossly nonfocal. PSYCHIATRIC: Calm and cooperative. LABORATORY DATA: Sodium 145, potassium 4.9, chloride 108, bicarbonate 28, BUN 23, creatinine 1.6, was 2.2, glucose 256. Lactate was 2.0, calcium 7.6. Troponin 125. WBC 13.3, hemoglobin 9.3, hematocrit 30.9, platelets 231. SARS-COVID was positive on 04/26/2021. RADIOLOGY: Chest x-ray as above. IMPRESSION: 1. Acute on chronic hypoxic respiratory failure. 2. COVID-19, 04/26/2021 complicated with right pneumothorax requiring chest tube, which was removed last admission. 3. Pneumonia 4. Acute kidney injury. 5. Anemia. RECOMMENDATIONS: 1. Discontinue IV vancomycin due to CARMELO. 2. Start Zyvox. 3. Continue cefepime, may need renal dosing. 4. Continue supportive care. 5. Pulmonary team is following patient. Thank you for allowing me to participate in this patient's care. If you have any questions, do not hesitate to contact me. FARTUN DR: Yohannes TID: [id number] [facility]
[2021-05-14] MEDS ORDERED: MAGNESIUM SULFATE 2GM 50 ML IV ONE (12:15)
[2021-05-14] MEDS: ENOXAPARIN 30 MG/0.3 ML SYRINGE. SQ SCH (13:55)
[2021-05-14 14:58] VITALS: BP 106/55
--- NOTE | 2021-05-14 16:36 | NUR ---
Wound/Ostomy Care Wound Type/Assessment: WC consult for buttock wound. Pt has stage II PU to buttocks. Cleansed, assessed and redressed wound. Treatment Recommendations/Plan: Cleanse area, apply calazime cream BID and PRN. Education provided: PU prevention, offloading, WC POC, TQ2H Offloading surface/device: wheelchair cushion ordered Recommended Referrals/Tests: na Discharge Recommendations for dressings: see above
[2021-05-14 19:00] VITALS: BP 125/71
--- NOTE | 2021-05-14 20:39 | PN ---
DATE: 05/14/2021 DAILY PROGRESS NOTE LOCATION: She is in room 532. SUBJECTIVE: This 70-year-old female admitted back from the care home with acute shortness of breath and worsening respiratory failure, found to have bilateral pneumonia, felt to be gram-positive, gram-negative by Pulmonary and had a prior COVID. She is currently on broad-spectrum antibiotics and appears improved this morning as she is much more awake and alert, conversant, wanting to get back into therapy to get stronger. OBJECTIVE: VITAL SIGNS: Stable. She is afebrile. GENERAL: She is awake and alert. CHEST: Reveals decreased breath sounds. HEART: Regular rate and rhythm. ABDOMEN: Benign. ASSESSMENT: 1. Acute on chronic respiratory failure due to bilateral pneumonia. 2. Recent COVID infection. 3. Acute renal failure with creatinine up to 2.2 on admission, improving; however, since admission, down to 1.6 this morning and creatinine of 1 leaving the hospital last time. PLAN: Continue present antibiotics, supportive care, follow renal labs. Pulmonary and Cardiology help appreciated. ERIK DR: Mary TID: [id number]
[2021-05-14] MEDS: ATORVASTATIN CALCIUM 10 MG TABLET. PO SCH (21:30)
[2021-05-14] MEDS: LINEZOLID 600 MG TABLET PO SCH (21:31)
[2021-05-14 23:00] VITALS: BP 93/46
[2021-05-15 03:00] VITALS: BP 138/67
[2021-05-15] MEDS ORDERED: VANCOMYCIN 750 MG in IV NORMAL SALINE 250ML 250 ML IV SCH (06:00)
[2021-05-15 07:00] VITALS: BP 133/75
[2021-05-15 07:30] LABS: CALCIUM 8.3 mg/dL (8.5-10.1); CREATININE 1.4 mg/dL (0.6-1.0); GFR 37.2
[2021-05-15 07:31] LABS: POTASSIUM 4.4 mmol/L (3.5-5.1)
--- NOTE | 2021-05-15 07:40 | PDOC ---
Infectious Disease Note Subjective: Subjective Pt feels better on 4L O2 by NC still has blood tinged sputum Vital Signs: Vital Signs Vital Signs Date Time Temp Pulse Resp B/P (MAP) Pulse Ox O2 Delivery O2 Flow Rate FiO2 05/15/21 03:00 97.8 90 18 138/67 (90) 91 97.8 05/14/21 23:08 BiPAP/CPAP 05/14/21 20:00 4.0 Physical Exam: PHYSICAL EXAM GENERAL: Alert, oriented x 3, pleasant female, lying in bed comfortably, in no acute distress, nontoxic appearing on 4 liters O2 by nasal cannula. HEENT: Normocephalic, atraumatic. Anicteric. Oral mucosa moist. NECK: Supple. LUNGS: Decreased breath sounds, few crackles. No accessory muscle use. No wheezing. HEART: S1, S2. No murmurs. ABDOMEN: Soft, nontender, nondistended. No rebound or guarding. EXTREMITIES: No edema, no cyanosis. DERMATOLOGIC: Warm, dry, no generalized rash. NEUROLOGIC: Alert, oriented x 3, grossly nonfocal. PSYCHIATRIC: Calm and cooperative. Medications: Inpatient Meds: Medications reviewed. Labs: Lab Laboratory Tests Test 05/14/21 17:09 05/14/21 20:24 05/15/21 06:10 Glucose (Fingerstick) 229 mg/dL (70-99) 121 mg/dL (70-99) Sodium Level 147 mmol/L (136-145) Potassium Level 4.4 mmol/L (3.5-5.1) Chloride Level 109 mmol/L (98-107) Carbon Dioxide Level 31 mmol/L (21-32) Anion Gap 7 (6-14) Blood Urea Nitrogen 20 mg/dL (7-20) Creatinine 1.4 mg/dL (0.6-1.0) Estimated GFR (Cockcroft-Gault) 37.2 Glucose Level 78 mg/dL (70-99) Calcium Level 8.3 mg/dL (8.5-10.1) Objective: Assessment: 1. Acute on chronic hypoxic respiratory failure. 2. COVID-19, 04/26/2021 complicated with right pneumothorax requiring chest tube, which was removed last admission. 3. Hemoptysis. 4. Acute kidney injury. 5. Anemia. Plan: Plan of Care Cont Zyvox.and cefepime, Monitor labs Continue supportive care. SHASHANK DELCID MD May 15, 2021 07:40
[2021-05-15] MEDS: PANTOPRAZOLE 40 MG TABLET.DR. PO SCH (07:51)
[2021-05-15] MEDS: LINEZOLID 600 MG TABLET PO SCH ×2 (08:58→21:32)
[2021-05-15] MEDS: MAGNESIUM HYDROXIDE 2,400 MG/30 ML ORAL.SUSP. PO SCH ×2 (08:58→09:00)
[2021-05-15] MEDS: buPROPion XL 150 MG TAB.ER.24H. PO SCH (08:58)
[2021-05-15] MEDS: CYPROHEPTADINE 4 MG TABLET. PO SCH (08:59)
[2021-05-15] MEDS: MULTIVITAMIN with MINERAL TABLET. PO SCH (08:59)
[2021-05-15] MEDS: MEMANTINE 10 MG TABLET. PO SCH (09:00)
[2021-05-15] MEDS: ASPIRIN ENTERIC COATED 81 MG TABLET.DR. PO SCH (09:00)
[2021-05-15] MEDS: METOPROLOL TART IMMED RELEASE 25 MG TABLET. PO SCH ×2 (09:00→21:33)
[2021-05-15] MEDS: CEFEPIME HCL IV Push 1 GM VIAL. IVP SCH ×2 (09:00→21:00)
[2021-05-15] MEDS: LACTOBACILLUS RHAMNOSUS GG 1 CAPSULE. PO SCH ×2 (09:00→21:32)
[2021-05-15] MEDS: FLUTICASONE/VILANTEROL 100/25 INHALER. INH SCH (09:01)
--- NOTE | 2021-05-15 10:08 | PDOC ---
PULMONARY PROGRESS NOTES DATE: 05/15/21 TIME: 10:04 Subjective Patient is sitting up in bed on examination, feeling better today, continues on 4L NC (baseline at home), states she is ready to go home Vitals Vital Signs Date Time Temp Pulse Resp B/P (MAP) Pulse Ox O2 Delivery O2 Flow Rate FiO2 05/15/21 09:00 84 133/75 05/15/21 07:00 98.1 20 91 Nasal Cannula 98.1 05/14/21 20:00 4.0 General: Alert, No acute distress Lungs: Clear, Other Cardiovascular: S1, Other Abdomen: Soft Extremities: No Edema Labs Laboratory Tests Test 05/13/21 17:30 05/14/21 04:35 05/14/21 04:55 05/14/21 17:09 Magnesium Level 1.6 mg/dL (1.8-2.4) Troponin I High Sensitivity 125 ng/L (4-50) Thyroid Stimulating Hormone (TSH) 0.111 uIU/mL (0.358-3.74) Sodium Level 145 mmol/L (136-145) Potassium Level 4.9 mmol/L (3.5-5.1) Chloride Level 108 mmol/L (98-107) Carbon Dioxide Level 28 mmol/L (21-32) Anion Gap 9 (6-14) Blood Urea Nitrogen 23 mg/dL (7-20) Creatinine 1.6 mg/dL (0.6-1.0) Estimated GFR (Cockcroft-Gault) 31.9 Glucose Level 256 mg/dL (70-99) Calcium Level 7.6 mg/dL (8.5-10.1) Triglycerides Level 79 mg/dL (0-150) Cholesterol Level 111 mg/dL (0-200) LDL Cholesterol, Calculated 55 mg/dL (0-100) VLDL Cholesterol, Calculated 16 mg/dL (0-40) Non-HDL Cholesterol Calculated 71 mg/dL (0-129) HDL Cholesterol 40 mg/dL (40-60) Cholesterol/HDL Ratio 2.8 Procalcitonin 0.47 ng/mL (0.00-0.10) Glucose (Fingerstick) 229 mg/dL (70-99) Test 05/14/21 20:24 05/15/21 06:10 05/15/21 07:41 Glucose (Fingerstick) 121 mg/dL (70-99) 79 mg/dL (70-99) Sodium Level 147 mmol/L (136-145) Potassium Level 4.4 mmol/L (3.5-5.1) Chloride Level 109 mmol/L (98-107) Carbon Dioxide Level 31 mmol/L (21-32) Anion Gap 7 (6-14) Blood Urea Nitrogen 20 mg/dL (7-20) Creatinine 1.4 mg/dL (0.6-1.0) Estimated GFR (Cockcroft-Gault) 37.2 Glucose Level 78 mg/dL (70-99) Calcium Level 8.3 mg/dL (8.5-10.1) Laboratory Tests Test 05/14/21 17:09 05/14/21 20:24 05/15/21 06:10 05/15/21 07:41 Glucose (Fingerstick) 229 mg/dL (70-99) 121 mg/dL (70-99) 79 mg/dL (70-99) Sodium Level 147 mmol/L (136-145) Potassium Level 4.4 mmol/L (3.5-5.1) Chloride Level 109 mmol/L (98-107) Carbon Dioxide Level 31 mmol/L (21-32) Anion Gap 7 (6-14) Blood Urea Nitrogen 20 mg/dL (7-20) Creatinine 1.4 mg/dL (0.6-1.0) Estimated GFR (Cockcroft-Gault) 37.2 Glucose Level 78 mg/dL (70-99) Calcium Level 8.3 mg/dL (8.5-10.1) Medications Active Scripts Medications Dose Route/Sig Max Daily Dose Days Date Category Milk Of Magnesia (Magnesium Hydroxide) 2,400 Mg/10 Ml Oral.susp 2,400 Mg PO DAILY 05/13/21 Reported Multi Vitamin Daily (Multivitamin) 1 Each Tablet 1 Tab PO DAILY 30 05/13/21 Reported Metoprolol Tartrate 25 Mg Tablet 25 Mg PO BID 30 05/09/21 Rx Budesonide 0.5 Mg/2 Ml Ampul.neb 0.5 Mg NEB RTBID 30 12/05/20 Rx Atorvastatin Calcium 10 Mg Tablet 10 Mg PO QHS 30 12/05/20 Rx Tylenol (Acetaminophen) 325 Mg Tablet 1-2 Tab PO PRN Q4-6HRS PRN 12/03/20 Reported Multi Vitamin Daily (Multivitamin) 1 Each Tablet 1 Tab PO DAILY 30 12/03/20 Reported Anoro Ellipta 62.5-25 Mcg Inh (Umeclidinium Brm/Vilanterol Tr) 1 Each Disk.w.dev 1 Each IH DAILY 12/03/20 Reported Namenda (Memantine Hcl) 10 Mg Tablet 5 Mg PO DAILY 12/03/20 Reported [Oxygen] 4 L DAILY 12/03/20 Reported Duoneb 0.5-3(2.5) Mg/3 Ml (Albuterol/Ipratropium) 3 Ml Ampul.neb 3 Ml NEB QID 12/03/20 Reported Melatonin 10 Mg Tab.rapdis 1 Tab PO QHS 30 12/03/20 Reported Cyproheptadine Hcl 4 Mg Tablet 4 Mg PO DAILY 12/03/20 Reported Bupropion Xl (Bupropion Hcl) 300 Mg Tab.er.24h 300 Mg PO DAILY 12/03/20 Reported Protonix (Pantoprazole Sodium) 20 Mg Tablet.dr 40 Mg PO DAILY 12/03/20 Reported Amlodipine Besylate 5 Mg Tablet 5 Mg PO DAILY 12/03/20 Reported Lisinopril 20 Mg Tablet 1 Tab PO DAILY 12/03/20 Reported Impression . IMPRESSION: 1. Acute hypoxemic respiratory failure, multifactorial. 2. Abnormal x-ray. 3. Possible gram-negative, gram-positive pneumonia. 4. Recovered from COVID-19. 5. Continued SARS-CoV-2 positivity, I do not think that the patient has an active infection. 6. Acute renal failure. DISCUSSION: The patient presented with increasing shortness of breath and abnormal x-ray, which has worsened since her last admission. She continues to be positive for SARS-CoV-2, I do not think that she is actively infected with SARS-CoV-2. I think we are dealing mainly with a healthcare-associated pneumonia, gram-positive, gram-negative. Plan . 05/15 continue O2, at baseline per patient 6min walk Continue abx and steroids. BiPAP as needed DVT PPX 05/14 continue on oxygen, titrate as able PRN BIPAP, has not needed empiric anbx, Vanc and Cefepime dvt prophylaxis PLAN 05/13: 1. Continue oxygen supplementation. 2. PRN BiPAP. 3. Empiric antibiotics. 4. IV fluids, the patient presented with acute renal failure. 5. Steroids. 6. Nebulized treatments. 7. Anticoagulation. LEANDRO CONSTANTINO MD May 15, 2021 10:08
[2021-05-15 11:00] VITALS: BP 103/52
--- NOTE | 2021-05-15 11:15 | PDOC ---
MARY BLACKWOOD MOLD INSERT CHANGER 05/15/21 1115: CARDIO Progress Notes Date and Time Date of Service 05/15/2021 Time of Evaluation 0950 Subjective Subjective: No Chest Pain, No shortness of breath, No Palpitations Vitals Vitals Vital Signs Date Time Temp Pulse Resp B/P (MAP) Pulse Ox O2 Delivery O2 Flow Rate FiO2 05/15/21 09:00 84 133/75 05/15/21 08:00 Nasal Cannula 4.0 05/15/21 07:00 98.1 20 91 98.1 Weight Weight [ ] Input and Output Intake and Output Intake and Output 05/15/21 07:00 Intake Total 640 ml Output Total 900 ml Balance -260 ml Intake Oral 640 ml Output Urine Total 700 ml Other 200 ml # Voids 1 Laboratory Labs Laboratory Tests Test 05/14/21 17:09 05/14/21 20:24 05/15/21 06:10 05/15/21 07:41 Glucose (Fingerstick) 229 mg/dL (70-99) 121 mg/dL (70-99) 79 mg/dL (70-99) Sodium Level 147 mmol/L (136-145) Potassium Level 4.4 mmol/L (3.5-5.1) Chloride Level 109 mmol/L (98-107) Carbon Dioxide Level 31 mmol/L (21-32) Anion Gap 7 (6-14) Blood Urea Nitrogen 20 mg/dL (7-20) Creatinine 1.4 mg/dL (0.6-1.0) Estimated GFR (Cockcroft-Gault) 37.2 Glucose Level 78 mg/dL (70-99) Calcium Level 8.3 mg/dL (8.5-10.1) Physical Exam HEENT: Neck Supple W Full Motion Chest: Symmetric LUNGS: Other (diminished, on NC) Heart: RRR (SR) Abdomen: Soft N/T Extremities: No Edema Neurology: alert, oriented, follow commands Assessment Assessment 1. Acute on chronic respiratory failure with AECOPD, PNA. chronic O2 use 2. Recent COVID PNA, right sided pneumothorax requiring chest tube placement 3. Arrhythmia; occasional PVC's.Maintaining SR 4. Mild troponin elevation; initial high sensitivity trop 121. Most probable type II, demand ischemia in setting of above. Echo 12/24 with preserved LV systolic function 5. Hypertension; controlled 6. Hyperlipidemia; statin 7. CARMELO; back to baseline 8. ZACK with CPAP 9. Protein calorie malnutrition 10. Hyperthyroidism; as per IM 11. Hypomagnesemia Recommendations Replace Mg Encourage adequate oral hydration Hold lisinopril. Avoid nephrotoxins Ongoing pulmonary optimization, treatment of PNA Outpatient echo Supportive care from a CV standpoint Justicifation of Admission Dx: Justifications for Admission: Justification of Admission Dx: Yes BALJIT MALHOTRA MD 05/15/21 2009: CARDIO Progress Notes Assessment Assessment Patient seen and examined. Agree with DESIGN SUPERVISOR's assessment and plan as stated above Plan outpatient echo and ischemic evaluation MARY BLACKWOOD APRN May 15, 2021 11:15 BALJIT MALHOTRA MD May 15, 2021 20:09
[2021-05-15 15:00] VITALS: BP 145/70
[2021-05-15] MEDS: ENOXAPARIN 30 MG/0.3 ML SYRINGE. SQ SCH (15:09)
--- NOTE | 2021-05-15 16:26 | PN ---
DATE: 05/15/2021 DAILY PROGRESS NOTE LOCATION: She is in room 532. SUBJECTIVE: This 70-year-old female admitted back from the custodial with acute shortness of breath and worsening hypoxic respiratory failure and noted bilateral pneumonias, felt to be gram-positive, gram-negative by Pulmonary and history of recent COVID. She remains on broad-spectrum antibiotics. She also came in with acute kidney injury with creatinine of 1.2 , it is down to 1.4 this morning. OBJECTIVE: VITAL SIGNS: Stable. She is afebrile. GENERAL: She is awake and alert. CHEST: Revealed decreased breath sounds. HEART: Regular rate and rhythm. ABDOMEN: Benign. ASSESSMENT: 1. Acute on chronic respiratory failure due to bilateral pneumonia. 2. Recent COVID infection. 3. Acute renal failure, improving. PLAN: Continue present antibiotics per ID. Supportive care. Discharge planning will be mainly directed towards ID and antibiotic needs. AD/CEE DR: Mary TID: [id number]
[2021-05-15 19:00] VITALS: BP 114/58
[2021-05-15] MEDS: ATORVASTATIN CALCIUM 10 MG TABLET. PO SCH (21:32)
[2021-05-15 23:00] VITALS: BP 142/77
[2021-05-16 03:00] VITALS: BP 130/76
[2021-05-16 04:34] LABS: CALCIUM 8.1 mg/dL (8.5-10.1); CREATININE 1.3 mg/dL (0.6-1.0); GFR 40.5
[2021-05-16 07:00] VITALS: BP 118/62
[2021-05-16] MEDS: PANTOPRAZOLE 40 MG TABLET.DR. PO SCH (08:27)
[2021-05-16] MEDS: MEMANTINE 10 MG TABLET. PO SCH (08:27)
[2021-05-16] MEDS: METOPROLOL TART IMMED RELEASE 25 MG TABLET. PO SCH (08:28)
[2021-05-16] MEDS: LACTOBACILLUS RHAMNOSUS GG 1 CAPSULE. PO SCH (08:28)
[2021-05-16] MEDS: buPROPion XL 150 MG TAB.ER.24H. PO SCH (08:28)
[2021-05-16] MEDS: ASPIRIN ENTERIC COATED 81 MG TABLET.DR. PO SCH (08:28)
[2021-05-16] MEDS: CYPROHEPTADINE 4 MG TABLET. PO SCH (08:28)
[2021-05-16] MEDS: MULTIVITAMIN with MINERAL TABLET. PO SCH (08:29)
[2021-05-16] MEDS: LINEZOLID 600 MG TABLET PO SCH (08:29)
[2021-05-16] MEDS: MAGNESIUM HYDROXIDE 2,400 MG/30 ML ORAL.SUSP. PO SCH (08:29)
[2021-05-16] MEDS: CEFEPIME HCL IV Push 1 GM VIAL. IVP SCH (08:29)
[2021-05-16] MEDS: FLUTICASONE/VILANTEROL 100/25 INHALER. INH SCH (08:29)
--- NOTE | 2021-05-16 10:05 | PDOC ---
Infectious Disease Note Subjective: Subjective Pt feels much better on 5L O2 by NC T 100 but per RN she had a lot of blankets and the room temp was high Pt denies any f/c/n/v/d Vital Signs: Vital Signs Vital Signs Date Time Temp Pulse Resp B/P (MAP) Pulse Ox O2 Delivery O2 Flow Rate FiO2 05/16/21 08:28 89 118/62 05/16/21 08:00 Nasal Cannula 5.0 05/16/21 07:00 98.3 13 94 98.3 Physical Exam: PHYSICAL EXAM GENERAL: Alert, oriented x 3, pleasant female, lying in bed comfortably, in no acute distress, nontoxic appearing on 4 liters O2 by nasal cannula. HEENT: Normocephalic, atraumatic. Anicteric. Oral mucosa moist. NECK: Supple. LUNGS: Decreased breath sounds, few crackles. No accessory muscle use. No wheezing. HEART: S1, S2. No murmurs. ABDOMEN: Soft, nontender, nondistended. No rebound or guarding. EXTREMITIES: No edema, no cyanosis. DERMATOLOGIC: Warm, dry, no generalized rash. NEUROLOGIC: Alert, oriented x 3, grossly nonfocal. PSYCHIATRIC: Calm and cooperative. Medications: Inpatient Meds: Medications reviewed. Labs: Lab Laboratory Tests Test 05/15/21 12:01 05/15/21 16:37 05/15/21 19:34 05/16/21 02:50 Glucose (Fingerstick) 250 mg/dL (70-99) 256 mg/dL (70-99) 268 mg/dL (70-99) Sodium Level 145 mmol/L (136-145) Potassium Level 5.0 mmol/L (3.5-5.1) Chloride Level 107 mmol/L (98-107) Carbon Dioxide Level 29 mmol/L (21-32) Anion Gap 9 (6-14) Blood Urea Nitrogen 27 mg/dL (7-20) Creatinine 1.3 mg/dL (0.6-1.0) Estimated GFR (Cockcroft-Gault) 40.5 Glucose Level 247 mg/dL (70-99) Calcium Level 8.1 mg/dL (8.5-10.1) Test 05/16/21 08:03 Glucose (Fingerstick) 146 mg/dL (70-99) Objective: Assessment: 1. Acute on chronic hypoxic respiratory failure. 2. COVID-19, 04/26/2021 complicated with right pneumothorax requiring chest tube, which was removed last admission. 3. Hemoptysis. 4. Acute kidney injury. 5. Anemia. Plan: Plan of Care DC Cefepime on discharge Augmentin and zyvox for 7 days Continue supportive care. SHASHANK DELCID MD May 16, 2021 10:05
[2021-05-16 11:00] VITALS: BP 99/33
--- NOTE | 2021-05-16 11:40 | NUR ---
SIMON following. Discussed with RN, pt from [facility], 4L, regular diet. Pt can discharge back to [facility] when orders received from physician. Shlomo decision has been made, RN unsure of discharge today or tomorrow. SIMON will continue to follow. Addendum: 05/16/21 at 1557 by APRIL MONTES Discharge orders faxed to [facility]. [facility] coming to collect pt around 1600. RN notified.
--- NOTE | 2021-05-16 11:49 | PDOC ---
PULMONARY PROGRESS NOTES DATE: 05/16/21 TIME: 11:44 Subjective patient is resting in the chair, she did sleep in bed. she is currently on 5L NC. denies shortness of breath. reports she is feeling better. Vitals Vital Signs Date Time Temp Pulse Resp B/P (MAP) Pulse Ox O2 Delivery O2 Flow Rate FiO2 05/16/21 08:28 89 118/62 05/16/21 08:00 Nasal Cannula 5.0 05/16/21 07:00 98.3 13 94 98.3 General: Alert, No acute distress Lungs: Clear, Other Cardiovascular: S1, Other Abdomen: Soft Extremities: No Edema Labs Laboratory Tests Test 05/14/21 17:09 05/14/21 20:24 05/15/21 06:10 05/15/21 07:41 Glucose (Fingerstick) 229 mg/dL (70-99) 121 mg/dL (70-99) 79 mg/dL (70-99) Sodium Level 147 mmol/L (136-145) Potassium Level 4.4 mmol/L (3.5-5.1) Chloride Level 109 mmol/L (98-107) Carbon Dioxide Level 31 mmol/L (21-32) Anion Gap 7 (6-14) Blood Urea Nitrogen 20 mg/dL (7-20) Creatinine 1.4 mg/dL (0.6-1.0) Estimated GFR (Cockcroft-Gault) 37.2 Glucose Level 78 mg/dL (70-99) Calcium Level 8.3 mg/dL (8.5-10.1) Test 05/15/21 12:01 05/15/21 16:37 05/15/21 19:34 05/16/21 02:50 Glucose (Fingerstick) 250 mg/dL (70-99) 256 mg/dL (70-99) 268 mg/dL (70-99) Sodium Level 145 mmol/L (136-145) Potassium Level 5.0 mmol/L (3.5-5.1) Chloride Level 107 mmol/L (98-107) Carbon Dioxide Level 29 mmol/L (21-32) Anion Gap 9 (6-14) Blood Urea Nitrogen 27 mg/dL (7-20) Creatinine 1.3 mg/dL (0.6-1.0) Estimated GFR (Cockcroft-Gault) 40.5 Glucose Level 247 mg/dL (70-99) Calcium Level 8.1 mg/dL (8.5-10.1) Test 05/16/21 08:03 05/16/21 11:01 Glucose (Fingerstick) 146 mg/dL (70-99) 268 mg/dL (70-99) Laboratory Tests Test 05/15/21 12:01 05/15/21 16:37 05/15/21 19:34 05/16/21 02:50 Glucose (Fingerstick) 250 mg/dL (70-99) 256 mg/dL (70-99) 268 mg/dL (70-99) Sodium Level 145 mmol/L (136-145) Potassium Level 5.0 mmol/L (3.5-5.1) Chloride Level 107 mmol/L (98-107) Carbon Dioxide Level 29 mmol/L (21-32) Anion Gap 9 (6-14) Blood Urea Nitrogen 27 mg/dL (7-20) Creatinine 1.3 mg/dL (0.6-1.0) Estimated GFR (Cockcroft-Gault) 40.5 Glucose Level 247 mg/dL (70-99) Calcium Level 8.1 mg/dL (8.5-10.1) Test 05/16/21 08:03 05/16/21 11:01 Glucose (Fingerstick) 146 mg/dL (70-99) 268 mg/dL (70-99) Medications Active Scripts Medications Dose Route/Sig Max Daily Dose Days Date Category Milk Of Magnesia (Magnesium Hydroxide) 2,400 Mg/10 Ml Oral.susp 2,400 Mg PO DAILY 05/13/21 Reported Multi Vitamin Daily (Multivitamin) 1 Each Tablet 1 Tab PO DAILY 30 05/13/21 Reported Metoprolol Tartrate 25 Mg Tablet 25 Mg PO BID 30 05/09/21 Rx Budesonide 0.5 Mg/2 Ml Ampul.neb 0.5 Mg NEB RTBID 30 12/05/20 Rx Atorvastatin Calcium 10 Mg Tablet 10 Mg PO QHS 30 12/05/20 Rx Tylenol (Acetaminophen) 325 Mg Tablet 1-2 Tab PO PRN Q4-6HRS PRN 12/03/20 Reported Multi Vitamin Daily (Multivitamin) 1 Each Tablet 1 Tab PO DAILY 30 12/03/20 Reported Anoro Ellipta 62.5-25 Mcg Inh (Umeclidinium Brm/Vilanterol Tr) 1 Each Disk.w.dev 1 Each IH DAILY 12/03/20 Reported Namenda (Memantine Hcl) 10 Mg Tablet 5 Mg PO DAILY 12/03/20 Reported [Oxygen] 4 L DAILY 12/03/20 Reported Duoneb 0.5-3(2.5) Mg/3 Ml (Albuterol/Ipratropium) 3 Ml Ampul.neb 3 Ml NEB QID 12/03/20 Reported Melatonin 10 Mg Tab.rapdis 1 Tab PO QHS 30 12/03/20 Reported Cyproheptadine Hcl 4 Mg Tablet 4 Mg PO DAILY 12/03/20 Reported Bupropion Xl (Bupropion Hcl) 300 Mg Tab.er.24h 300 Mg PO DAILY 12/03/20 Reported Protonix (Pantoprazole Sodium) 20 Mg Tablet.dr 40 Mg PO DAILY 12/03/20 Reported Amlodipine Besylate 5 Mg Tablet 5 Mg PO DAILY 12/03/20 Reported Lisinopril 20 Mg Tablet 1 Tab PO DAILY 12/03/20 Reported Impression . IMPRESSION: 1. Acute hypoxemic respiratory failure, multifactorial. 2. Abnormal x-ray. 3. Possible gram-negative, gram-positive pneumonia. 4. Recovered from COVID-19. 5. Continued SARS-CoV-2 positivity, I do not think that the patient has an active infection. 6. Acute renal failure. DISCUSSION: The patient presented with increasing shortness of breath and abnormal x-ray, which has worsened since her last admission. She continues to be positive for SARS-CoV-2, I do not think that she is actively infected with SARS-CoV-2. I think we are dealing mainly with a healthcare-associated pneumonia, gram-positive, gram-negative. Plan . 05/16 continue oxygen, is at patient baseline acivity as tolerated complete course of antibiotic, augmentin and zyvox, per ID 05/15 continue O2, at baseline per patient 6min walk Continue abx and steroids. BiPAP as needed DVT PPX 05/14 continue on oxygen, titrate as able PRN BIPAP, has not needed empiric anbx, Vanc and Cefepime dvt prophylaxis LEANDRO CONSTANTINO MD May 16, 2021 11:49
--- NOTE | 2021-05-16 11:57 | PDOC ---
CARDIO Progress Notes Date and Time Date of Service 05/16/2021 Time of Evaluation 1150 Subjective Subjective: No Chest Pain, No shortness of breath, No Palpitations Vitals Vitals Vital Signs Date Time Temp Pulse Resp B/P (MAP) Pulse Ox O2 Delivery O2 Flow Rate FiO2 05/16/21 11:00 99.2 82 15 99/33 (55) 95 Nasal Cannula 4.0 99.2 Weight Weight [ ] Input and Output Intake and Output Intake and Output 05/16/21 07:00 Intake Total 370 ml Balance 370 ml Intake Oral 370 ml # Bowel Movements 1 Laboratory Labs Laboratory Tests Test 05/15/21 12:01 05/15/21 16:37 05/15/21 19:34 05/16/21 02:50 Glucose (Fingerstick) 250 mg/dL (70-99) 256 mg/dL (70-99) 268 mg/dL (70-99) Sodium Level 145 mmol/L (136-145) Potassium Level 5.0 mmol/L (3.5-5.1) Chloride Level 107 mmol/L (98-107) Carbon Dioxide Level 29 mmol/L (21-32) Anion Gap 9 (6-14) Blood Urea Nitrogen 27 mg/dL (7-20) Creatinine 1.3 mg/dL (0.6-1.0) Estimated GFR (Cockcroft-Gault) 40.5 Glucose Level 247 mg/dL (70-99) Calcium Level 8.1 mg/dL (8.5-10.1) Test 05/16/21 08:03 05/16/21 11:01 Glucose (Fingerstick) 146 mg/dL (70-99) 268 mg/dL (70-99) Physical Exam HEENT: Neck Supple W Full Motion Chest: Symmetric LUNGS: Other (diminished, on NC) Heart: RRR (SR) Abdomen: Soft N/T Extremities: No Edema Neurology: alert, oriented, follow commands Justicifation of Admission Dx: Justifications for Admission: Justification of Admission Dx: Yes MARY BLACKWOOD APRN May 16, 2021 11:57
--- NOTE | 2021-05-16 12:21 | PDOC ---
MARY BLACKWOOD CUSTOM PROTECTION OFFICER 05/16/21 1221: CARDIO Progress Notes Date and Time Date of Service 05/16/2021 Time of Evaluation 1200 Subjective Subjective: No Chest Pain, No shortness of breath, No Palpitations Vitals Vitals Vital Signs Date Time Temp Pulse Resp B/P (MAP) Pulse Ox O2 Delivery O2 Flow Rate FiO2 05/16/21 11:00 99.2 82 15 99/33 (55) 95 Nasal Cannula 4.0 99.2 Weight Weight [ ] Input and Output Intake and Output Intake and Output 05/16/21 07:00 Intake Total 370 ml Balance 370 ml Intake Oral 370 ml # Bowel Movements 1 Laboratory Labs Laboratory Tests Test 05/15/21 16:37 05/15/21 19:34 05/16/21 02:50 05/16/21 08:03 Glucose (Fingerstick) 256 mg/dL (70-99) 268 mg/dL (70-99) 146 mg/dL (70-99) Sodium Level 145 mmol/L (136-145) Potassium Level 5.0 mmol/L (3.5-5.1) Chloride Level 107 mmol/L (98-107) Carbon Dioxide Level 29 mmol/L (21-32) Anion Gap 9 (6-14) Blood Urea Nitrogen 27 mg/dL (7-20) Creatinine 1.3 mg/dL (0.6-1.0) Estimated GFR (Cockcroft-Gault) 40.5 Glucose Level 247 mg/dL (70-99) Calcium Level 8.1 mg/dL (8.5-10.1) Test 05/16/21 11:01 Glucose (Fingerstick) 268 mg/dL (70-99) Physical Exam HEENT: Neck Supple W Full Motion Chest: Symmetric LUNGS: Other (diminished, on NC) Heart: RRR (SR) Abdomen: Soft N/T Extremities: No Edema Neurology: alert, oriented, follow commands Assessment Assessment 1. Acute on chronic respiratory failure with AECOPD, PNA. chronic O2 use 2. Recent COVID PNA, right sided pneumothorax requiring chest tube placement 3. Arrhythmia; occasional PVC's.Maintaining SR 4. Mild troponin elevation; initial high sensitivity trop 121. Most probable type II, demand ischemia in setting of above. Echo 12/24 with preserved LV systolic function 5. Hypertension; controlled 6. Hyperlipidemia; statin 7. CARMELO; back to baseline 8. ZACK with CPAP 9. Protein calorie malnutrition 10. Hyperthyroidism; as per IM 11. Hypomagnesemia Recommendations Encourage adequate oral hydration Hold lisinopril. Avoid nephrotoxins Ongoing pulmonary optimization, treatment of PNA Outpatient echo Supportive care from a CV standpoint Justicifation of Admission Dx: Justifications for Admission: Justification of Admission Dx: Yes BALJIT MALHOTRA MD 05/16/21 1453: CARDIO Progress Notes Assessment Assessment Patient seen and examined. Agree with NEUROSCIENTIST's assessment and plan. Telemetry did not show any significant arrhythmias. Slight troponin elevation probably demand ischemia. Recent 2D echo showed normal LV systolic function Continue current treatment for acute COPD exacerbation MARY BLACKWOOD APRN May 16, 2021 12:21 BALJIT MALHOTRA MD May 16, 2021 14:53
[2021-05-16] MEDS: ENOXAPARIN 30 MG/0.3 ML SYRINGE. SQ SCH (14:24)
[2021-05-16] MEDS ORDERED: LINE600T12 PO (14:48)
[2021-05-16] MEDS ORDERED: AMOX1TAB58 PO (14:49)
--- NOTE | 2021-05-16 14:51 | SNU/HH DC ---
DISCHARGE ORDERS DISCHARGE INFORMATION: DISCHARGE DATE: May 16, 2021 CONDITION ON DISCHARGE: Stable CODE STATUS: Code Status: Full SNF: SNF STAY <30 DAYS: Yes HOSPICE: HOSPICE: No HOSPICE EVAL & TREAT: No LTAC: ADMIT TO LTAC: No POST DISCHARGE ORDERS: ACTIVITY ORDERS: Activity as tolerated DIET AFTER DISCHARGE: ADA TREATMENT/EQUIPMENT ORDERS: RESPIRATORY EQUIPMENT NEEDED: Oxygen Physical Therapy For: Evalulation/Treatment Occupational Therapy For: Evaluation/Treatment Speech Language Pathology For: Evaluation/Treatment DISCHARGE MEDICATIONS: Home Meds Active Scripts Amoxicillin/Potassium Clav (AUGMENTIN 500-125 TABLET) 1 Each Tablet, 1 TAB PO BID for pneumonia for 7 Days, #14 TAB 0 Refills Prov:ASTRID LE MD 05/16/21 Linezolid (ZYVOX) 600 Mg Tablet, 600 MG PO BID for pneumonia for 7 Days, #14 TAB Prov:ASTRID LE MD 05/16/21 Metoprolol Tartrate (METOPROLOL TARTRATE) 25 Mg Tablet, 25 MG PO BID for cardiac ischemia for 30 Days, #60 TAB Prov:ASTRID LE MD 05/09/21 Budesonide (BUDESONIDE) 0.5 Mg/2 Ml Ampul.neb, 0.5 MG NEB RTBID for . for 30 Days, #1 EACH Prov:CASTLE,NIAL K III DO 12/05/20 Atorvastatin Calcium (ATORVASTATIN CALCIUM) 10 Mg Tablet, 10 MG PO QHS for 1 for 30 Days, #30 TAB Prov:CASTLE,NIAL K III DO 12/05/20 Reported Medications Magnesium Hydroxide (MILK OF MAGNESIA) 2,400 Mg/10 Ml Oral.susp, 2400 MG PO DAILY for , MISC 05/13/21 Multivitamin (MULTI VITAMIN DAILY) 1 Each Tablet, 1 TAB PO DAILY for for 30 Days, #30 TAB 0 Refills 05/13/21 Acetaminophen (TYLENOL) 325 Mg Tablet, 1-2 TAB PO PRN Q4-6HRS PRN for MILD PAIN / TEMP > 100.3'F, #60 TAB 2 Refills 12/03/20 Multivitamin (MULTI VITAMIN DAILY) 1 Each Tablet, 1 TAB PO DAILY for for 30 Days, #30 TAB 0 Refills 12/03/20 Umeclidinium Brm/Vilanterol Tr (ANORO ELLIPTA 62.5-25 MCG INH) 1 Each Disk.w.dev, 1 EACH IH DAILY for copd, INH 12/03/20 Memantine Hcl (NAMENDA) 10 Mg Tablet, 5 MG PO DAILY for , TAB 12/03/20 [Oxygen] No Conflict Check, 4 L DAILY 12/03/20 Ipratropium/Albuterol Sulfate (DUONEB 0.5-3(2.5) MG/3 ML) 3 Ml Ampul.neb, 3 ML NEB QID for COPD, EACH 12/03/20 Melatonin (Melatonin) 10 Mg Tab.rapdis, 1 TAB PO QHS for sleep for 30 Days, #30 TAB 0 Refills 12/03/20 Cyproheptadine Hcl (CYPROHEPTADINE HCL) 4 Mg Tablet, 4 MG PO DAILY for UNKNOWN, TAB 12/03/20 Bupropion Hcl (BUPROPION XL) 300 Mg Tab.er.24h, 300 MG PO DAILY for DEPRESSION, TAB.SR 12/03/20 Pantoprazole Sodium (PROTONIX) 20 Mg Tablet.dr, 40 MG PO DAILY for GERD, TAB 12/03/20 Amlodipine Besylate (AMLODIPINE BESYLATE) 5 Mg Tablet, 5 MG PO DAILY for HTN, TAB 12/03/20 Lisinopril (LISINOPRIL) 20 Mg Tablet, 1 TAB PO DAILY for HYPERTENSION, #30 TAB 5 Refills 12/03/20 Discontinued Reported Medications Prednisone (PREDNISONE ) 10 Mg Tablet, 4 TAB PO DAILY for for 5 Days, #20 TAB 0 Refills 12/03/20 ASTRID LE MD May 16, 2021 14:50
[2021-05-16 15:00] VITALS: BP 92/54
--- NOTE | 2021-05-16 16:16 | NUR ---
Discharge Note: Patient was discharged back to [facility] where patients resides. Patients IV was discontinued without any complications per [facility] COORDINATOR. Patient was taken over to facility via wheelchair van with all personal belongings and on 5L on oxygen. Report was called to VAIBHAV Miller at [facility]. All discharge paperwork was sent with patient over to facility.
--- NOTE | 2021-05-16 16:50 | DS ---
DATE OF DISCHARGE: 05/16/2021 PRIMARY DIAGNOSIS: Healthcare-acquired pneumonia. ADDITIONAL DIAGNOSES: Recent COVID infection; acute kidney injury, improving during stay; acute on chronic hypoxic respiratory failure. CHIEF COMPLAINT AND HISTORY OF PRESENT ILLNESS: This 70-year-old female was admitted back from the skilled nursing a few days after discharge, at which time she was hospitalized for COVID-19 pneumonia and left pneumothorax that was slow to resolve. She had increasing shortness of breath on evening of admission and more hypoxia, was found to have worsening pneumonia on chest x-ray. On admission, creatinine had bumped up to 2.2 where baseline was 1 on prior discharge. She thus was admitted for community-acquired pneumonia and acute on chronic hypoxic respiratory failure and acute kidney injury. SUMMARY OF STAY: The patient was admitted, covered with broad-spectrum antibiotics, pulmonary toilet. She improved clinically on a daily basis. Her creatinine decreased to 1.3 on the day of discharge from the 2.2 on admission, was continuing to improve. Pulmonary and ID felt it was safe for discharge on continued Lozinivoid as well as Augmentin as an outpatient, and she was discharged on the day of dismissal. DISPOSITION: The patient is discharged back to [facility]. Please see orders there regarding diet, medication, activity, etc. We will continue to follow her there. DENISA/CEE DR: Mary TID: [id number]
--- NOTE | 2021-05-17 01:21 | PN ---
DATE: 05/16/2021 LOCATION: She is in room 532. SUBJECTIVE: This 70-year-old female admitted back from retirement with acute shortness of breath, worsening hypoxic respiratory failure, bilateral pneumonia, is felt to be gram-negative, gram-positive by Pulmonary and history of recent COVID. She remains on broad-spectrum antibiotics. ID does say today that continue cefepime until discharge and at that point, transition to oral antibiotics. I think she probably can go tomorrow if she definitely is improved; however, oxygen needs in the last 24 hours went from 4 to 5 liters. OBJECTIVE: VITAL SIGNS: Stable. She has had 100 degree fever early this morning. GENERAL: She is awake and alert, claims to feel better. CHEST: Decreased breath sounds. HEART: Regular rate and rhythm. ABDOMEN: Benign. EXTREMITIES: Without significant edema. NEUROLOGIC: Intact. LABORATORY DATA: Sugars are variable. Creatinine down to 1.3 with ongoing improvement in her acute renal failure. ASSESSMENT: 1. Acute on chronic respiratory failure due to bilateral pneumonia. 2. Recent COVID infection. 3. Acute renal failure, improving. PLAN: Continue present antibiotics. We will tentatively put in discharge orders [facility] recommended by ID namely Augmentin and Zyvox for another 7 days. SEEMA/GULSHAN/BETSY DR: SEEMA/amaya TID: [id number]
== END 2021-05-16 16:28 | DRG 871 ==
LOC: ER 23:09 → ED HOLD 05-13 01:50 → 6 SOUTH 05-13 04:29 → 5 NORTH 05-14 16:42
PROVIDERS: ADMIT Family Medicine; ATTEND Family Medicine
PROC: 5A09357 Assistance with Respiratory Ventilation, Less than 24 Consecutive Hours, Continuous Positive Airway Pressure (ICD-10-PCS; principal; 2021-05-13)
PROC: 5A09357 Assistance with Respiratory Ventilation, Less than 24 Consecutive Hours, Continuous Positive Airway Pressure (ICD-10-PCS; 2021-05-14)
DX: A41.9 Sepsis, unspecified organism (principal); J15.6 Pneumonia due to other Gram-negative bacteria; J96.21 Acute and chronic respiratory failure with hypoxia; E43 Unspecified severe protein-calorie malnutrition; U07.1 COVID-19; I24.8 Other forms of acute ischemic heart disease; J44.0 Chronic obstructive pulmonary disease with (acute) lower respiratory infection; J44.1 Chronic obstructive pulmonary disease with (acute) exacerbation; J93.9 Pneumothorax, unspecified; Z68.1 Body mass index [BMI] 19.9 or less, adult; N17.9 Acute kidney failure, unspecified; D64.9 Anemia, unspecified; E05.90 Thyrotoxicosis, unspecified without thyrotoxic crisis or storm; E78.5 Hyperlipidemia, unspecified; E83.42 Hypomagnesemia; G47.33 Obstructive sleep apnea (adult) (pediatric); I10 Essential (primary) hypertension; I49.3 Ventricular premature depolarization; Y95 Nosocomial condition
CPT/HCPCS: 36415; 36600; 71045; 80048; 80053; 80061; 81001; 82805; 82962; 83605; 83735; 83880; 84145; 84443; 84484; 85007; 85025; 85379; 87428; 93005; 94640; 94660; 94760; 96365; 96375; J0692; J1650; J2930; J3370; J3475; J7030; J7040; J7050; U0003; U0005; 99285-25; G0378; J7613

== ENCOUNTER 2021-05-21 08:53 | Emergency (ER) | payer MEDICARE, MEDICAID ==
[~2021-05-21] VITALS: Ht 162.6 cm; Wt 59.0 kg
[~2021-05-21 08:53] MED LIST changes: +AMOX1TAB58 PO; +LINE600T12 PO; +MAGN24003 PO
--- NOTE | 2021-05-21 08:57 | PHYS DOC ---
Past Medical History Past Medical History: COPD Additional Past Medical Histor: 4L OXYGEN @ HOME, COVID PNEUMONIA, CHEST TUBE Past Surgical History: No Surgical History Smoking Status: Former Smoker Alcohol Use: None General Adult HPI: HPI: Patient is a 70 year old female who arrives from her rehabilitation facility with report of shortness of breath. She has COPD and wears supplemental oxygen at all times. No reported hypoxia on her usual oxygen per nasal cannula. She denies chest pain. She reports chronic cough, without sputum changes. She denies abdominal pain, nausea, vomiting. She denies chest pain. She denies urinary symptoms, she is chronically incontinent of stool and urine. Her only physical complaint is pain at her buttocks. She is afebrile here. EMS reported that that the facility told him that she had a fever. No antipyretics were reportedly given prior to arrival. She had a relatively lengthy recent hospitalization for post Covid pneumonia, hypoxia, respiratory failure and a large left-sided pneumothorax. She had a chest chest tube placed, the pneumothorax was apparently slow to resolve. She was discharged from here to her care facility, on oral Augmentin and linezolid. She is a relatively poor historian overall, and she has a known history of dementia. Review of Systems: Review of Systems: Limited review of systems, secondary to poor historian dementia, see HPI for details. Heart Score: C/O Chest Pain: No Risk Factors: Risk Factors: DM, Current or recent (<one month) smoker, HTN, HLP, family history of CAD, obesity. Risk Scores: Score 0 - 3: 2.5% MACE over next 6 weeks - Discharge Home Score 4 - 6: 20.3% MACE over next 6 weeks - Admit for Clinical Observation Score 7 - 10: 72.7% MACE over next 6 weeks - Early Invasive Strategies Allergies: Allergies: Allergies Coded Allergies Type Severity Reaction Last Updated Verified codeine Allergy Intermediate 12/04/20 Yes tiotropium Allergy Intermediate 12/04/20 Yes Physical Exam: PE: Constitutional: Frail, cachectic, chronically ill-appearing. Nontoxic in appearance at present HENT: Normocephalic, atraumatic, mucous membranes are tacky Eyes: Sclera anicteric Neck: Trachea midline, JVD noted, neck is supple and nontender. Cardiovascular:Heart rate regular rhythm, +2 radial and +2 posterior tibial pulses bilaterally Lungs & Thorax: Diminished breath sounds in bilateral bases. Very mild tachypnea. No wheezing, no stridor, no rhonchi. Speaks in full and clear sentences. No cyanosis Abdomen: Abdomen is soft, nondistended, nontender to palpation. Skin: Poor skin turgor. There is maceration and sacral ulceration and wounds and mild erythema, diffusely, ulcerations are scattered, superficial, the largest of which is noted near the midline and lower sacral area. No palpable crepitus or subcutaneous emphysema, no dusky discoloration. Back: No midline tenderness or step-offs, kyphosis noted, no acute deformity or evidence of trauma noted. Extremities: No tenderness, no cyanosis, no clubbing, ROM intact, no edema. No calf tenderness. No limb deformity. Neurologic: She is awake, alert, oriented to person and place, confused about date, follows commands, moves all 4 extremities equally, motor grossly intact, sensation grossly intact, speech is clear and fluent, no facial asymmetry. Psychologic: She is pleasant, cooperative. EKG: EKG: [] Radiology/Procedures: Radiology/Procedures: IMAGING REPORT Signed PATIENT: WARREN CARR ACCOUNT: [id number] : 1950 LOCATION: ER AGE: 70 SEX: F EXAM STATUS: REG ER ORD. PHYSICIAN: JOBY ESQUIVEL DO REASON: cough, dyspnea PROCEDURE: PORTABLE CHEST 1V EXAMINATION: Chest radiograph. VIEWS: Single AP view of the chest COMPARISON: 05/12/2021 INDICATION:70 years, Female, cough, dyspnea. FINDINGS: Stable cardiomediastinal silhouette. Overall similar patchy perihilar and basilar opacities in the left and similar linear opacities on the right with associated volume loss. No pleural effusion or pneumothorax. No acute osseous process. IMPRESSION: Overall similar patchy bilateral airspace disease. Electronically signed by: Guillermo Young DO (05/21/2021 10:15 AM) [id number] DICTATED and SIGNED BY: GUILLERMO YOUNG DO DATE: 05/21/21 [id number] 0 Course & Med Decision Making: Course & Med Decision Making Pertinent Labs and Imaging studies reviewed. (See chart for details) The patient was given a DuoNeb treatment. She is resting comfortably, she manifest no evidence of hypoxia or respiratory distress, she is saturating in the high 90s on her usual 4 L per nasal cannula. She reports no chest pain. She is no longer dyspneic. The patient was observed in the ER for several hours, she has no specific complaints. Her care facility is contacted, the patient never actually had a fever there, and the patient reportedly called 911 from her room because she said she felt like she could not feel the oxygen blowing into her nose. They had no specific complaints or concerns for her regarding her vital signs or condition. I contacted Dr. Pino, and she will be discharged back to her snf facility. She is discharged in stable condition. Dragon Disclaimer: StockUp Disclaimer: This electronic medical record was generated, in whole or in part, using a voice recognition dictation system. Departure Departure Impression: Primary Impression: CHRONIC RESPIRATORY FAILURE WITH HYPOXIA Additional Impression: CHRONIC OBSTRUCTIVE PULMONARY DISEASE, UNSPECIFIED Disposition: 03 CARE HOME FACILITY Condition: STABLE Referrals: ASTRID PINO MD (PCP) Patient Instructions: Chronic Obstructive Pulmonary Disease Additional Instructions: Return to the ER for severe chest pain, more severe shortness of breath, temp erature 100.4 or higher, severe abdominal pain, uncontrolled vomiting, dehydration or for any other concerns. Please discuss your sacral wound with the nursing staff at your care facility. You may need a formal wound care consult. Continue taking your regularly prescribed medications, continue taking your antibiotics. Follow-up with Dr. Pino. JOBY ESQUIVEL DO May 21, 2021 08:57
[2021-05-21 09:54] LABS: BASE EXCESS ABG 3 mmol/L (-3-3); HCO3 ABG 27 mmol/L (21-28); PCO2 ABG 43 mmHg (35-46); PO2 ABG 74 mmHg (65-108); SAT O2 ABG 94 % (92-99)
[2021-05-21 09:57] LABS: FIO2 ABG 4L NC
--- NOTE | 2021-05-21 10:17 | RAD ---
EXAMINATION: Chest radiograph. VIEWS: Single AP view of the chest COMPARISON: 05/12/2021 INDICATION:70 years, Female, cough, dyspnea. FINDINGS: Stable cardiomediastinal silhouette. Overall similar patchy perihilar and basilar opacities in the le ft and similar linear opacities on the right with associated volume loss. No pleural effusion or pneu mothorax. No acute osseous process. IMPRESSION: Overall similar patchy bilateral airspace disease. Electronically signed by: Cameron Young DO (05/21/2021 10:15 AM) [id number]
[2021-05-21 10:55] LABS: BASO # 0.1 x10^3/uL (0.0-0.2); BASO % 1 % (0-3); EOS # 0.3 x10^3/uL (0.0-0.7); EOS % 3 % (0-3); HEMOGLOBIN 8.9 g/dL (12.0-15.5); LYMPH # 1.9 x10^3/uL (1.0-4.8); LYMPH % 18 % (24-48); MEAN CORPUSCULAR HEMOGLOBIN 28 pg (25-35); MEAN CORPUSCULAR HGB CONC 32 g/dL (31-37); MEAN CORPUSCULAR VOLUME 86 fL (79-100); MONO % 9 % (0-9); NEUT # 7.4 x10^3/uL (1.8-7.7); NEUT % 69 % (31-73); PLATELET COUNT 443 x10^3/uL (140-400); RED BLOOD COUNT 3.24 x10^6/uL (3.50-5.40); RED CELL DISTRIBUTION WIDTH 19.1 % (11.5-14.5); WHITE BLOOD COUNT 10.8 x10^3/uL (4.0-11.0)
[2021-05-21 11:10] LABS: ALBUMIN 1.9 g/dL (3.4-5.0); ALBUMIN/GLOBULIN RATIO 0.6 (1.0-1.7); CALCIUM 8.3 mg/dL (8.5-10.1); CREATININE 1.3 mg/dL (0.6-1.0); GFR 40.5; MAGNESIUM 1.9 mg/dL (1.8-2.4); PHOSPHORUS 3.6 mg/dL (2.6-4.7); POTASSIUM 3.7 mmol/L (3.5-5.1); TOTAL BILIRUBIN 0.4 mg/dL (0.2-1.0); TOTAL PROTEIN 5.3 g/dL (6.4-8.2)
[2021-05-21 11:29] LABS: % BANDS 3 % (0-9); % EOS 8 % (0-5); % LYMPHS 16 % (24-48); % METAS 1 % (0-0); % MONOS 7 % (0-10); % SEGS 65 % (35-66)
[2021-05-21 11:30] LABS: ANISOCYTOSIS PRESENT; PLT ESTIMATE INCREASED (ADEQUATE); POLYCHROMASIA PRESENT
[2021-05-21] MEDS ORDERED: IV NORMAL SALINE 1000ML BAG 1,000 ML IV ONE (12:00)
[2021-05-21] MEDS ORDERED: IPRATRPIUM/ALBUTEROL 0.5/2.5MG 3 ML NEBU. NEB ONE (14:00)
[2021-05-21 20:26] VITALS: BP 136/66
== END 2021-05-21 21:52 | disposition home or self-care (01) ==
LOC: ER 08:53
DX: J96.11 Chronic respiratory failure with hypoxia (principal); J44.9 Chronic obstructive pulmonary disease, unspecified; Z87.891 Personal history of nicotine dependence; F03.90 Unspecified dementia, unspecified severity, without behavioral disturbance, psychotic disturbance, mood disturbance, and anxiety; Z88.5 Allergy status to narcotic agent; Z88.8 Allergy status to other drugs, medicaments and biological substances
CPT/HCPCS: 36415; 36600; 71045; 80053; 82550; 82805; 82962; 83605; 83735; 83880; 84100; 84484; 85007; 85025; 87040; 94640; 96360; 99285; J7030

== ENCOUNTER 2021-07-01 11:07 | Emergency (ER) | payer MEDICARE, MEDICAID ==
[~2021-07-01] VITALS: Ht 165.1 cm; Wt 59.1 kg
[2021-07-01 11:40] VITALS: BP 122/74
[2021-07-01] MEDS ORDERED: DIPHTH,PERTUSS(ACELL),TET TOX 0.5 ML DISP.SYRIN. VAX IM ONE (12:30)
--- NOTE | 2021-07-01 13:07 | RAD ---
EXAM: XR HAND_RIGHT 2 VIEWS 07/01/2021 12:40 PM CLINICAL INDICATION: Fall, laceration to right third digit COMPARISON: None TECHNIQUE: PA, and lateral views of the right hand FINDINGS: The bones are diffusely demineralized. There is no acute fracture. Alignment is normal. Mi ld degenerative joint disease at the first CMC joint and second MCP joint. No focal soft tissue abnor mality or radiopaque foreign body. IMPRESSION: No acute osseous abnormality or radiopaque foreign body. Electronically signed by: Sahra Berry MD (07/01/2021 1:05 PM) [id number]
--- NOTE | 2021-07-01 13:35 | PHYS DOC ---
Past Medical History Past Medical History: COPD Additional Past Medical Histor: 4L OXYGEN @ HOME, COVID PNEUMONIA, CHEST TUBE Past Surgical History: No Surgical History Smoking Status: Former Smoker Alcohol Use: None Adult General Chief Complaint Chief Complaint: LACERATION/AVULSION HPI HPI Patient is a 70 year old female who presents with right middle finger injury. Patient states that she had fallen earlier today but does not really remember hurting her finger at the time. Couple of hours later she noticed a laceration over the dorsal aspect of the second phalanx. She has some discomfort with flexion and extension. She denies any other injury complaints. Last tetanus is unknown. Review of Systems Review of Systems Constitutional: Denies fever Eyes: Denies change in visual acuity or eye pain HENT: Denies sore throat Respiratory: Denies shortness of breath Cardiovascular: Denies chest pain GI: Denies abd pain : Denies dysuria Musculoskeletal: Denies back or extremity injury Integument: Denies rash or skin lesions Neurologic: Denies headache, focal weakness or sensory changes All other systems were reviewed and found to be within normal limits, except as documented in this note. Current Medications Current Medications Current Medications Medications (Trade) Dose Ordered Sig/Olivia Start Time Stop Time Status Last Admin Dose Admin Diphtheria/ Tetanus/Acell Pertussis (Boostrix) 0.5 ml ONCE ONCE 07/01/21 12:30 07/01/21 12:35 DC 07/01/21 12:30 0.5 ML Allergies Allergies Allergies Coded Allergies Type Severity Reaction Last Updated Verified codeine Allergy Intermediate 12/04/20 Yes tiotropium Allergy Intermediate 12/04/20 Yes Physical Exam Physical Exam Constitutional: Well developed, well nourished, no acute distress, non-toxic appearance. HENT: Normocephalic, atraumatic, bilateral external ears normal, mucosa moist, nose normal. Eyes: EOMI, conjunctiva normal, no discharge. Neck: Normal range of motion, supple, no stridor, no meningeal signs. Cardiovascular: Regular rate Lungs & Thorax: No respiratory distress Abdomen: Soft, no tenderness or obvious masses Skin: Warm, dry, no erythema, no rash, 2 cm superficial laceration over the dorsal aspect of the right middle finger middle phalanx. This is more of a skin avulsion injury. No tendon is visible though there is some subcutaneous tissue visible and bruising present as well. Extremities: No tenderness, no cyanosis, no clubbing, ROM intact, no edema. Neurologic: Alert and oriented, normal motor function, normal sensory function, no focal deficits noted. Psychologic: Affect normal, judgement normal, mood normal. Current Patient Data Vital Signs Vital Signs Date Time Temp Pulse Resp B/P (MAP) Pulse Ox O2 Delivery O2 Flow Rate FiO2 07/01/21 11:40 98.6 110 20 122/74 (90) 93 Room Air 98.6 EKG EKG [] Radiology/Procedures Radiology/Procedures [] Impressions: PATIENT: WARREN CARR GACCOUNT: [id number]#: [id number] : 1950 LOCATION: ER AGE: 70 SEX: F EXAM STATUS: REG ER ORD. PHYSICIAN: DAFNE FLEMING MD REASON: FALL, LACERATION TO RIGHT 3RD DIGIT PROCEDURE: HAND RIGHT 2V EXAM: XR HAND_RIGHT 2 VIEWS 07/01/2021 12:40 PM CLINICAL INDICATION: Fall, laceration to right third digit COMPARISON: None TECHNIQUE: PA, and lateral views of the right hand FINDINGS: The bones are diffusely demineralized. There is no acute fracture. Alignment is normal. Mild degenerative joint disease at the first CMC joint and second MCP joint. No focal soft tissue abnormality or radiopaque foreign body. IMPRESSION: No acute osseous abnormality or radiopaque foreign body. Electronically signed by: Sahra Berry MD (07/01/2021 1:05 PM) [id number] DICTATED and SIGNED BY: SAHRA BERRY MD DATE: 07/01/21 1303 Course & Med Decision Making Course & Med Decision Making Pertinent Labs and Imaging studies reviewed. (See chart for details) [] 7-year-old female finger pain post fall. She has a laceration which does not require sutures. X-rays negative. She is given a tetanus booster, she stable for discharge. Dragon Disclaimer Dragon Disclaimer This electronic medical record was generated, in whole or in part, using a voice recognition dictation system. Departure Departure Impression: Primary Impression: Laceration Disposition: 01 HOME / SELF CARE / HOMELESS Condition: STABLE Referrals: NON,STAFF (PCP) Patient Instructions: Laceration Care, Adult DAFNE FLEMING MD Jul 01, 2021 13:35
== END 2021-07-01 14:09 | disposition home or self-care (01) ==
LOC: ER 11:07
DX: S61.212A Laceration without foreign body of right middle finger without damage to nail, initial encounter (principal); J44.9 Chronic obstructive pulmonary disease, unspecified; Z87.891 Personal history of nicotine dependence; Z88.5 Allergy status to narcotic agent; Z88.8 Allergy status to other drugs, medicaments and biological substances; W18.39XA Other fall on same level, initial encounter; Y93.89 Activity, other specified; Y92.89 Other specified places as the place of occurrence of the external cause; Y99.8 Other external cause status
CPT/HCPCS: 73120; 90471; 90715; 99283-25

== ENCOUNTER 2021-08-19 18:32 | Emergency (ER) | payer MEDICARE, MEDICAID ==
[~2021-08-19] VITALS: Ht 167.6 cm; Wt 41.0 kg
[2021-08-19] MEDS ORDERED: IV RINGERS,LACTATED 1000ML 1,000 ML IV ONE (19:00)
[2021-08-19 19:06] LABS: BASO % 0 % (0-3); EOS % 0 % (0-3); HEMATOCRIT 33.5 % (36.0-47.0); HEMOGLOBIN 10.6 g/dL (12.0-15.5); LYMPH # 0.9 x10^3/uL (1.0-4.8); LYMPH % 9 % (24-48); MEAN CORPUSCULAR HEMOGLOBIN 26 pg (25-35); MEAN CORPUSCULAR HGB CONC 32 g/dL (31-37); MEAN CORPUSCULAR VOLUME 84 fL (79-100); MONO # 0.6 x10^3/uL (0.0-1.1); MONO % 6 % (0-9); NEUT % 85 % (31-73); PLATELET COUNT 426 x10^3/uL (140-400); RED BLOOD COUNT 3.99 x10^6/uL (3.50-5.40); WHITE BLOOD COUNT 10.6 x10^3/uL (4.0-11.0)
[2021-08-19 19:30] LABS: CALCIUM 9.9 mg/dL (8.5-10.1); CREATININE 1.5 mg/dL (0.6-1.0); GFR 34.2
[2021-08-19 19:36] LABS: ALBUMIN 3.2 g/dL (3.4-5.0); TOTAL BILIRUBIN 0.2 mg/dL (0.2-1.0); TOTAL PROTEIN 6.5 g/dL (6.4-8.2)
--- NOTE | 2021-08-19 19:52 | PHYS DOC ---
Past Medical History Past Medical History: Constipation, COPD, Pneumonia Additional Past Medical Histor: 4L OXYGEN @ HOME, COVID PNEUMONIA, CHEST TUBE (MONIQUE RHOADES) Past Surgical History: No Surgical History (MONIQUE RHOADES) Smoking Status: Former Smoker Alcohol Use: None (MONIQUE RHOADES) General Adult EDM: Chief Complaint: WEAKNESS/GENERALIZED HPI: HPI: Patient is a 71 year old female with past medical history that includes dementia, COPD, COVID-19 pneumonia who presents with shortness of breath and weakness over the past couple of days. Patient reports that she was diagnosed with pneumonia in her assisted living facility last week. Patient is unclear as to why, but the assisted living facility was unable to obtain the prescription for amoxicillin that was prescribed. Upon finding this out, her doctor instructed that she present to the emergency department for further evaluation and treatment. Patient denies fever, chills, chest pain, palpitations, sputum production changes or new cough. (MONIQUE RHOADES) Review of Systems: Review of Systems: Constitutional: See HPI Eyes: Denies change in visual acuity, visual field deficits or discharge HENT: Denies ear pain, nasal congestion or sore throat Respiratory: See HPI Cardiovascular: Denies chest pain, palpitations or edema GI: Denies abdominal pain, nausea, vomiting, bloody stools or diarrhea : Denies dysuria or hematuria Musculoskeletal: Denies back pain or joint pain Integument: Denies rash or other skin lesion Neurologic: Denies headache, focal weakness or sensory changes (MONIQUE RHOADES) Heart Score: C/O Chest Pain: No (MONIQUE RHOADES) Current Medications: Current Medications Medications (Trade) Dose Ordered Sig/Olivia Start Time Stop Time Status Last Admin Dose Admin Ringer's Solution 1,000 ml @ 1,000 mls/hr 1X ONCE 08/19/21 19:00 08/19/21 19:59 08/19/21 19:20 1,000 MLS/HR (MONIQUE RHOADES) Allergies: Allergies: Allergies Coded Allergies Type Severity Reaction Last Updated Verified codeine Allergy Intermediate 12/04/20 Yes enalapril Allergy Intermediate 08/19/21 Yes loratadine Allergy Intermediate 08/19/21 Yes (MONIQUE RHOADES) Physical Exam: PE: Constitutional: Thin, no acute distress, non-toxic appearance. HENT: Normocephalic, atraumatic, bilateral external ears normal, nose normal. Eyes: EOMI, conjunctiva normal, no discharge. Neck: Normal range of motion, no stridor. Cardiovascular: Heart regular rate and rhythm. No apparent murmurs, rubs or gallops. Lungs & Thorax: Equal thoracic expansion, no increased work of breathing, clear to auscultation in all lung bhatt Skin: Warm, dry, no erythema, no rash. Extremities: No cyanosis, no clubbing, ROM intact, no edema. Neurologic: Alert and oriented but repetitive questioning, no focal deficits noted. (MONIQUE RHOADES) Current Patient Data: Labs: Laboratory Tests Test 08/19/21 18:57 White Blood Count 10.6 x10^3/uL (4.0-11.0) Red Blood Count 3.99 x10^6/uL (3.50-5.40) Hemoglobin 10.6 g/dL (12.0-15.5) L Hematocrit 33.5 % (36.0-47.0) L Mean Corpuscular Volume 84 fL (79-100) Mean Corpuscular Hemoglobin 26 pg (25-35) Mean Corpuscular Hemoglobin Concent 32 g/dL (31-37) Red Cell Distribution Width 19.0 % (11.5-14.5) H Platelet Count 426 x10^3/uL (140-400) H Neutrophils (%) (Auto) 85 % (31-73) H Lymphocytes (%) (Auto) 9 % (24-48) L Monocytes (%) (Auto) 6 % (0-9) Eosinophils (%) (Auto) 0 % (0-3) Basophils (%) (Auto) 0 % (0-3) Neutrophils # (Auto) 9.0 x10^3/uL (1.8-7.7) H Lymphocytes # (Auto) 0.9 x10^3/uL (1.0-4.8) L Monocytes # (Auto) 0.6 x10^3/uL (0.0-1.1) Eosinophils # (Auto) 0.0 x10^3/uL (0.0-0.7) Basophils # (Auto) 0.0 x10^3/uL (0.0-0.2) Sodium Level 147 mmol/L (136-145) H Potassium Level 5.0 mmol/L (3.5-5.1) Chloride Level 107 mmol/L (98-107) Carbon Dioxide Level 28 mmol/L (21-32) Anion Gap 12 (6-14) Blood Urea Nitrogen 44 mg/dL (7-20) H Creatinine 1.5 mg/dL (0.6-1.0) H Estimated GFR (Cockcroft-Gault) 34.2 BUN/Creatinine Ratio 29 (6-20) H Glucose Level 185 mg/dL (70-99) H Calcium Level 9.9 mg/dL (8.5-10.1) Total Bilirubin Pending Aspartate Amino Transferase (AST) Pending Alanine Aminotransferase (ALT) Pending Alkaline Phosphatase Pending Troponin I High Sensitivity 86 ng/L (4-50) H ZR-Zlc-H-Type Natriuretic Peptide 574 pg/mL (0-124) H Total Protein Pending Albumin Pending Albumin/Globulin Ratio Pending Laboratory Tests 08/19/21 18:57 Laboratory Tests 08/19/21 18:57 Vital Signs: Vital Signs Date Time Temp Pulse Resp B/P (MAP) Pulse Ox O2 Delivery O2 Flow Rate FiO2 08/19/21 18:34 98.2 100 14 115/65 (82) 99 Nasal Cannula 3.0 98.2 (MONIQUE RHOADES) EKG: EKG: EKG Interpreted by Dr. Lane at 1918: Regular rate and rhythm 93 bpm with no ectopic beats. QT 368 ms/QTc 460 ms. No STEMI. (MONIQUE RHOADES) Radiology/Procedures: Radiology/Procedures: PROCEDURE: PORTABLE CHEST 1V AP chest x-ray HISTORY: Shortness of breath. COMPARISON: Chest x-ray May 21, 2021 FINDINGS: Heart size normal. Tortuosity thoracic aorta. No pneumothorax. No pleural effusions. Chronic coarsened interstitial markings lung bases likely changes of chronic interstitial disease, stable. No new pulmonary opacity. IMPRESSION: No acute process. Changes of chronic interstitial lung disease at the lung bases are stable. Electronically signed by: Tye Cutler MD (08/19/2021 8:13 PM) [facility] (MONIQUE RHOADES) Course & Med Decision Making: Course & Med Decision Making Pertinent Labs and Imaging studies reviewed. (See chart for details) Patient is a 71-year-old female with past medical history that includes dementia and COPD who presents for evaluation of shortness of breath after being unable to obtain prescription for antibiotics today. Patient lives in assisted living, and there was an issue with the pharmacy to which medication was sent. Patient states that the chest x-ray she had done today showed pneumonia. However, on today's work-up, there is no acute infiltrate or hypoxia. Of note, her troponin was elevated, though it is lower than it has been in her recent history here at [facility]. A repeat troponin will be drawn after 2 hours to evaluate for any acute change. Was transferred to Dr. Lane, attending in the department, while awaiting repeat troponin lab value. Thorough handoff was given. Patient case was discussed. He will address troponin result. (MONIQUE RHOADES) Course & Med Decision Making I was signed off this patient by the PA. Pt has SOB per note however on my arrival she states that she feels completely fine. She is on 3 L nasal cannula which is her baseline. She is not hypoxic or tachypneic. No clinical signs of DVT or PE. Her troponin is elevated but much lower than her usual baseline. It has been addressed in the past. She is not having any chest pain. EKG is unremarkable. Patient will be sent back to her nursing facility. (BEATRIZ LANE MD) Dragon Disclaimer: Dragon Disclaimer: This electronic medical record was generated, in whole or in part, using a voice recognition dictation system. (MONIQUE RHOADES) Departure Departure Impression: Primary Impression: COPD not affecting current episode of care Additional Impression: History of dementia Disposition: HOME / SELF CARE / HOMELESS Condition: STABLE Referrals: NON,STAFF (PCP) Patient Instructions: Shortness of Breath, [id number] Additional Instructions: EMERGENCY DEPARTMENT GENERAL DISCHARGE INSTRUCTIONS Thank you for coming to [facility] Emergency Department (ED) today and trusting us with you care. We trust that you had a positive experience in our Emergency Department. If you wish to speak to the department management, you may call the director at . YOUR FOLLOW UP INSTRUCTIONS ARE FOLLOWS: 1. Follow up with your primary care doctor. If you do not have a primary doctor, please ask for a resource list of physicians or clinics that may be able to assist you with follow up care. 2. The emergency provider has interpreted your imaging studies, if any were ordered. The radiology digital imaging technician also reviewed them. If there is a change in the findings, you will be notified in 48 hours when at all possible. 3. If a lab test or culture has been done, your results will be reviewed and you will be notified if you need a change in treatment. 4. Follow instructions verbalized to you and refer to the printouts if needed. ADDITIONAL INSTRUCTIONS AND INFORMATION: 1. Your care today has been supervised by a physician who is specially trained in emergency care. Many problems require more than one evaluation for a complet e diagnosis and treatment. We recommend that you schedule your follow up appointment as recommended to ensure complete treatment of you illness or injury. If you are unable to obtain follow up care and continue to have a problem, or if your condition worsens, we recommend that you return to the ED. 2. We are not able to safely determine your condition over the phone nor are we able to give sound medical advice over the phone. For these safety reasons, if you call for medical advice we will ask you to come to the ED for further evaluation. 3. If you have any questions regarding these discharge instructions please call the ED at . SAFETY INFORMATION: In the interest of safety, wellness, and injury prevention; we encourage you to wear your seat belt, if you smoke; quite smoking, and we encourage family to use a protective helmet for bicycling and other sporting events that present an increased risk for head injury. IF YOUR SYMPTOMS WORSEN OR NEW SYMPTOMS DEVELOP, OR YOU HAVE CONCERNS ABOUT YOUR CONDITION; OR IF YOUR CONDITION WORSENS WHILE YOU ARE WAITING FOR YOUR FOLLOW UP APPOINTMENT; EITHER CONTACT YOUR PRIMARY CARE DOCTOR, THE PHYSICIAN WHOSE NAME AND NUMBER YOU WERE GIVEN, OR RETURN TO THE ED IMMEDIATELY. MONIQUE RHOADES August 19, 2021 19:[address] MD August 19, 2021 22:55
--- NOTE | 2021-08-19 20:15 | RAD ---
AP chest x-ray HISTORY: Shortness of breath. COMPARISON: Chest x-ray May 21, 2021 FINDINGS: Heart size normal. Tortuosity thoracic aorta. No pneumothorax. No pleural effusions. Chroni c coarsened interstitial markings lung bases likely changes of chronic interstitial disease, stable. No new pulmonary opacity. IMPRESSION: No acute process. Changes of chronic interstitial lung disease at the lung bases are stab le. Electronically signed by: Tye Cutler MD (08/19/2021 8:13 PM) [facility]
[2021-08-19 23:00] VITALS: BP 141/70
--- NOTE | 2021-08-20 07:20 | EKG ---
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
--- NOTE | 2021-08-21 14:11 | EKG ---
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
== END 2021-08-19 23:29 | disposition home or self-care (01) ==
LOC: ER 18:32
DX: J44.9 Chronic obstructive pulmonary disease, unspecified (principal); F03.90 Unspecified dementia, unspecified severity, without behavioral disturbance, psychotic disturbance, mood disturbance, and anxiety; Z88.5 Allergy status to narcotic agent; Z88.8 Allergy status to other drugs, medicaments and biological substances
CPT/HCPCS: 36415; 71045; 80053; 83880; 84484; 85025; 93005; 96360; 99285; J7120